=== PATIENT | female | born 1950 | race Caucasian/White ===

== ENCOUNTER → 2018-03-16 | Outpatient (CLI) | payer MEDICARE, MEDICAID ==
[2018-03-16 09:41] LABS: BASO % 0.8 % (0.0-1.0); EOS # 0.2 10^3/uL (0.0-0.50); EOS % 2.8 % (0.0-3.0); HEMATOCRIT 37.8 % (36.0-47.0); HEMOGLOBIN 12.8 g/dl (12.0-15.5); IMMATURE GRANULOCYTE % 0.8 % (0-3.0); LYMPH # 1.6 10^3/uL (1.5-4.5); LYMPH % 30.6 % (24.0-44.0); MEAN CORPUSCULAR HEMOGLOBIN 31.4 pg (27.0-33.0); MEAN CORPUSCULAR HGB CONC 33.9 g/dl (32.0-36.5); MEAN CORPUSCULAR VOLUME 92.9 fl (80.0-96.0); MONO # 0.6 10^3/uL (0.0-0.8); MONO % 11.3 % (0.0-5.0); NEUTROPHILS # 2.9 10^3/uL (1.8-7.7); NEUTROPHILS % 53.7 % (36.0-66.0); PLATELET COUNT, AUTOMATED 197 10^3/uL (150-450); RED BLOOD COUNT 4.07 10^6/uL (4.00-5.40); RED CELL DISTRIBUTION WIDTH 11.9 % (11.5-14.5); WHITE BLOOD COUNT 5.3 10^3/uL (4.0-10.0)
[2018-03-16 10:12] LABS: TOTAL 25(OH) VITAMIN D 40.6 NG/ML (30.0-100.0)
[2018-03-16 10:39] LABS: ALBUMIN 3.2 GM/DL (3.2-5.2); ALBUMIN/GLOBULIN RATIO 0.78 (1.00-1.93); ALKALINE PHOSPHATASE 125 U/L (45-117); ALT/SGPT 41 U/L (12-78); ANION GAP 4 MEQ/L (8-16); AST/SGOT 43 U/L (7-37); BILIRUBIN,TOTAL 0.5 MG/DL (0.2-1.0); BLOOD UREA NITROGEN 19 MG/DL (7-18); CALCIUM LEVEL 8.2 MG/DL (8.8-10.2); CARBON DIOXIDE LEVEL 28 MEQ/L (21-32); CHLORIDE LEVEL 107 MEQ/L (98-107); CHOLESTEROL LEVEL 171 MG/DL (<200); CHOLESTEROL RISK RATIO 2.478 (<5); CREATININE FOR GFR 0.96 MG/DL (0.55-1.30); FREE T4 0.84 NG/DL (0.76-1.46); GLOMERULAR FILTRATION RATE > 60.0 (>45); GLUCOSE, FASTING 87 MG/DL (70-100); HDL CHOLESTEROL 69 MG/DL (>40); LDL CHOLESTEROL 85.2 MG/DL (<100); NON-HDL-C 102 MG/DL; POTASSIUM SERUM 4.6 MEQ/L (3.5-5.1); SODIUM LEVEL 139 MEQ/L (136-145); TOTAL PROTEIN 7.3 GM/DL (6.4-8.2); TRIGLYCERIDES LEVEL 84 MG/DL (<150)
== END ==
LOC: M WUC 08:07
DX: J45.909 Unspecified asthma, uncomplicated (principal); Z13.220 Encounter for screening for lipoid disorders; Z13.29 Encounter for screening for other suspected endocrine disorder; Z13.21 Encounter for screening for nutritional disorder
CPT/HCPCS: 84443

== ENCOUNTER → 2018-04-06 | Outpatient (REF) | payer MEDICARE, MEDICAID | LOC: M LAB REF 11:34 | DX: N39.0 Urinary tract infection, site not specified (principal) | CPT/HCPCS: 87186 ==

== ENCOUNTER → 2018-05-24 | Outpatient (REF) | payer MEDICARE, MEDICAID | LOC: M SFHCSACK 14:42 | DX: R35.8 Other polyuria (principal) | CPT/HCPCS: 87186 ==

== ENCOUNTER → 2018-06-29 | Outpatient (CLI) | payer MEDICARE, MEDICAID ==
[2018-06-29 13:14] LABS: BASO % 0.5 % (0.0-1.0); EOS # 0.1 10^3/uL (0.0-0.50); EOS % 2.4 % (0.0-3.0); HEMATOCRIT 39.2 % (36.0-47.0); HEMOGLOBIN 13.4 g/dl (12.0-15.5); IMMATURE GRANULOCYTE % 1.1 % (0-3.0); LYMPH % 36.8 % (24.0-44.0); MEAN CORPUSCULAR HEMOGLOBIN 32.8 pg (27.0-33.0); MEAN CORPUSCULAR HGB CONC 34.2 g/dl (32.0-36.5); MEAN CORPUSCULAR VOLUME 96.1 fl (80.0-96.0); MONO # 0.5 10^3/uL (0.0-0.8); MONO % 9.7 % (0.0-5.0); NEUTROPHILS # 2.7 10^3/uL (1.8-7.7); NEUTROPHILS % 49.5 % (36.0-66.0); PLATELET COUNT, AUTOMATED 180 10^3/uL (150-450); RED BLOOD COUNT 4.08 10^6/uL (4.00-5.40); RED CELL DISTRIBUTION WIDTH 11.9 % (11.5-14.5); WHITE BLOOD COUNT 5.5 10^3/uL (4.0-10.0)
[2018-06-29 13:32] LABS: ERYTHROCYTE SEDIMENTATION RATE 26 mm/hr (0-30)
[2018-06-29 14:22] LABS: ALBUMIN 3.1 GM/DL (3.2-5.2); ALBUMIN/GLOBULIN RATIO 0.72 (1.00-1.93); ALKALINE PHOSPHATASE 109 U/L (45-117); ALT/SGPT 29 U/L (12-78); ANION GAP 9 MEQ/L (8-16); AST/SGOT 28 U/L (7-37); BILIRUBIN,TOTAL 0.6 MG/DL (0.2-1.0); BLOOD UREA NITROGEN 19 MG/DL (7-18); CALCIUM LEVEL 8.1 MG/DL (8.8-10.2); CARBON DIOXIDE LEVEL 25 MEQ/L (21-32); CHLORIDE LEVEL 105 MEQ/L (98-107); CREATININE FOR GFR 0.99 MG/DL (0.55-1.30); GLOMERULAR FILTRATION RATE 59.2 (>45); GLUCOSE, FASTING 69 MG/DL (70-100); POTASSIUM SERUM 4.2 MEQ/L (3.5-5.1); RHEUMATOID FACTOR QUANT < 10.0 IU/ML (<15.0); SODIUM LEVEL 139 MEQ/L (136-145); TOTAL PROTEIN 7.4 GM/DL (6.4-8.2)
[2018-07-03 14:17] LABS: ANTINUCLEAR ANTIBODIES DIRECT Negative (Negative); TOPIRAMATE LEVEL 13.1 ug/mL (2.0-25.0)
== END ==
LOC: M WUC 09:22
DX: R56.9 Unspecified convulsions (principal); Z51.81 Encounter for therapeutic drug level monitoring; Z79.899 Other long term (current) drug therapy
CPT/HCPCS: 84443

== ENCOUNTER → 2018-08-26 | Outpatient (CLI) | payer MEDICARE, MEDICAID ==
[2018-08-26 13:12] LABS: BASO # 0.1 10^3/uL (0.0-0.2); BASO % 0.8 % (0.0-1.0); EOS # 0.1 10^3/uL (0.0-0.50); EOS % 2.1 % (0.0-3.0); HEMATOCRIT 38.2 % (36.0-47.0); HEMOGLOBIN 12.9 g/dl (12.0-15.5); IMMATURE GRANULOCYTE % 0.6 % (0-3.0); LYMPH # 2.4 10^3/uL (1.5-4.5); MEAN CORPUSCULAR HEMOGLOBIN 32.5 pg (27.0-33.0); MEAN CORPUSCULAR HGB CONC 33.8 g/dl (32.0-36.5); MEAN CORPUSCULAR VOLUME 96.2 fl (80.0-96.0); MONO # 0.5 10^3/uL (0.0-0.8); MONO % 8.3 % (0.0-5.0); NEUTROPHILS # 3.1 10^3/uL (1.8-7.7); NEUTROPHILS % 50.2 % (36.0-66.0); PLATELET COUNT, AUTOMATED 184 10^3/uL (150-450); RED BLOOD COUNT 3.97 10^6/uL (4.00-5.40); RED CELL DISTRIBUTION WIDTH 11.9 % (11.5-14.5); WHITE BLOOD COUNT 6.3 10^3/uL (4.0-10.0)
[2018-08-26 13:22] LABS: ALBUMIN 3.4 GM/DL (3.2-5.2); ALBUMIN/GLOBULIN RATIO 0.92 (1.00-1.93); ALKALINE PHOSPHATASE 120 U/L (45-117); ALT/SGPT 31 U/L (12-78); ANION GAP 5 MEQ/L (8-16); AST/SGOT 34 U/L (7-37); BILIRUBIN,TOTAL 0.7 MG/DL (0.2-1.0); BLOOD UREA NITROGEN 21 MG/DL (7-18); CALCIUM LEVEL 8.3 MG/DL (8.8-10.2); CARBON DIOXIDE LEVEL 28 MEQ/L (21-32); CHLORIDE LEVEL 107 MEQ/L (98-107); CHOLESTEROL LEVEL 165 MG/DL (<200); CHOLESTEROL RISK RATIO 2.462 (<5); CREATININE FOR GFR 0.92 MG/DL (0.55-1.30); GLOMERULAR FILTRATION RATE > 60.0 (>39); GLUCOSE, FASTING 96 MG/DL (70-100); HDL CHOLESTEROL 67 MG/DL (>40); LDL CHOLESTEROL 76 MG/DL (<100); NON-HDL-C 98 MG/DL; POTASSIUM SERUM 4.5 MEQ/L (3.5-5.1); SODIUM LEVEL 140 MEQ/L (136-145); TOTAL PROTEIN 7.1 GM/DL (6.4-8.2); TRIGLYCERIDES LEVEL 111 MG/DL (<150)
[2018-08-28 10:24] LABS: TOTAL 25(OH) VITAMIN D 45.9 NG/ML (30.0-100.0)
== END ==
LOC: M WUC 11:21
DX: J45.909 Unspecified asthma, uncomplicated (principal); Z13.21 Encounter for screening for nutritional disorder; Z13.220 Encounter for screening for lipoid disorders
CPT/HCPCS: 80053

== ENCOUNTER 2018-09-18 14:17 | Emergency (ER) | payer MEDICARE, MEDICAID ==
[2018-09-18 17:22] LABS: BASO % 0.6 % (0.0-1.0); EOS # 0.1 10^3/uL (0.0-0.50); EOS % 1.8 % (0.0-3.0); HEMATOCRIT 40.1 % (36.0-47.0); HEMOGLOBIN 13.5 g/dl (12.0-15.5); IMMATURE GRANULOCYTE % 0.4 % (0-3.0); LYMPH # 2.6 10^3/uL (1.5-4.5); LYMPH % 38.7 % (24.0-44.0); MEAN CORPUSCULAR HGB CONC 33.7 g/dl (32.0-36.5); MONO # 0.6 10^3/uL (0.0-0.8); MONO % 8.4 % (0.0-5.0); NEUTROPHILS # 3.4 10^3/uL (1.8-7.7); NEUTROPHILS % 50.1 % (36.0-66.0); PLATELET COUNT, AUTOMATED 167 10^3/uL (150-450); RED BLOOD COUNT 4.22 10^6/uL (4.00-5.40); RED CELL DISTRIBUTION WIDTH 11.9 % (11.5-14.5); WHITE BLOOD COUNT 6.7 10^3/uL (4.0-10.0)
[2018-09-18 17:38] LABS: INR 1.05; PROTHROMBIN TIME 13.9 SECONDS (12.1-14.4)
[2018-09-18 17:39] LABS: PARTIAL THROMBOPLASTIN TIME 28.3 SECONDS (25.4-37.6)
[2018-09-18 17:43] LABS: LACTIC ACID SEPSIS PROTOCOL 1.3 MMOL/L (0.4-2.0)
[2018-09-18 17:50] LABS: ALBUMIN 3.5 GM/DL (3.2-5.2); ALBUMIN/GLOBULIN RATIO 0.85 (1.00-1.93); ALKALINE PHOSPHATASE 151 U/L (45-117); ALT/SGPT 36 U/L (12-78); ANION GAP 5 MEQ/L (8-16); AST/SGOT 34 U/L (7-37); BILIRUBIN,DIRECT 0.1 MG/DL (0.0-0.2); BILIRUBIN,TOTAL 0.3 MG/DL (0.2-1.0); BLOOD UREA NITROGEN 21 MG/DL (7-18); C REACTIVE PROTEIN QUANTITATIV < 0.30 MG/DL (0.00-0.30); CALCIUM LEVEL 8.6 MG/DL (8.8-10.2); CARBON DIOXIDE LEVEL 28 MEQ/L (21-32); CHLORIDE LEVEL 106 MEQ/L (98-107); CREATININE FOR GFR 1.12 MG/DL (0.55-1.30); GLOMERULAR FILTRATION RATE 51.2 (>39); GLUCOSE, FASTING 119 MG/DL (70-100); SODIUM LEVEL 139 MEQ/L (136-145); TOTAL PROTEIN 7.6 GM/DL (6.4-8.2)
[2018-09-18 18:37] LABS: ERYTHROCYTE SEDIMENTATION RATE 20 mm/hr (0-30)
== END 2018-09-18 19:37 | disposition home or self-care (01) ==
LOC: M ED 14:17
DX: I73.9 Peripheral vascular disease, unspecified (principal); I50.9 Heart failure, unspecified; R56.9 Unspecified convulsions; Z79.899 Other long term (current) drug therapy
CPT/HCPCS: 73590

== ENCOUNTER → 2018-11-30 | Outpatient (CLI) | payer MEDICARE, MEDICAID ==
[~2018-11-30] MED LIST: ALPR0.25 PO; BREO1INH PO; CARB1CAP2 PO; CLOR7.5T3 PO; FOSA70TA PO; LASI20TA3 PO; MIRA3350 PO; MULTCAP PO; POTA1TAB14 PO; TOPA200T7 PO; VITA200038 PO; VITAD1000T PO; ZOLO25TA PO; ZOLO50TA PO
--- NOTE | 2018-11-30 13:40 | REP ---
BILATERAL LOWER EXTREMITY DUPLEX DOPPLER VENOUS ULTRASOUND WITH EVALUATION FOR VENOUS REFLUX: Real-time compression and duplex Doppler interrogation of the bilateral lower extremity deep venous systems is performed. Bilaterally, common femoral, superficial femoral, and popliteal veins are fully compressible with transducer pressure and demonstrate normal spontaneous and phasic flow without evidence of deep venous thrombosis. Evaluation for venous reflux is performed with the bed tipped only coming out in the standing position. On the right there is reflux seen throughout the deep veins including common femoral, superficial femoral, and popliteal veins. There is an anterior accessory greater saphenous vein present without evidence of reflux. There is no reflux in any portion of the greater saphenous vein, which measures 4 mm at the saphenofemoral junction and in the mid thigh, and 3 mm at the level of the knee. There is no reflux in the lesser saphenous vein which measures 2 mm in diameter. Evaluation for venous reflux in the left lower extremity demonstrates reflux throughout the deep venous system including the common femoral, superficial femoral, and popliteal veins. There is an anterior accessory greater saphenous vein present without reflux. There is reflux in the greater saphenous vein at the saphenous vein at the saphenofemoral junction with a duration of 1.15 seconds, AP diameter 4 mm, also at the mid thigh level with a duration of 5.7 seconds and AP diameter of 4 mm, as well as the knee with a duration of 3.8 seconds, AP diameter 4 mm. There is no reflux in the lesser saphenous vein which measures 2 mm. Electronically Signed by Ryan Rao MD 11/30/2018 05:31 P
== END ==
LOC: M RAD 11:18
PROVIDERS: ATTEND Surgery Vascular Surgery
DX: I73.9 Peripheral vascular disease, unspecified (principal); I87.2 Venous insufficiency (chronic) (peripheral)

== ENCOUNTER 2018-12-21 08:22 | Day surgery (SDC) | payer MEDICARE, MEDICAID ==
[~2018-12-21] VITALS: Ht 162.6 cm; Wt 69.4 kg
[~2018-12-21 08:22] MED LIST changes: +COLA100C5 PO; +HYDR1CRE AD; +NS 1,000 ML IV ONE; +PROAAER10 INH
[2018-12-21] MEDS ORDERED: PROPOFOL 200 MG/20 ML VIAL As Ordered ONE (09:22)
--- NOTE | 2018-12-21 09:48 | ROOR ---
Patient Name: Natalia Hernandez Procedure Date: 12/21/2018 9:21 AM Date of : 1950 Age: 68 Room: [facility] Gender: Female Note Status: Finalized Procedure: Colonoscopy Indications: Positive Cologuard test Providers: Madi Larson Jr, MD Referring MD: ANIRUDH Gilliam Pa-c Requesting Provider: Medicines: Propofol per Anesthesia Complications: No immediate complications. Procedure: Pre-Anesthesia Assessment: - Prior to the procedure, a History and Physical was performed, and patient medications and allergies were reviewed. The patient is competent. The risks and benefits of the procedure and the sedation options and risks were discussed with the patient. All questions were answered and informed consent was obtained. Patient identification and proposed procedure were verified by the physician and the nurse in the pre-procedure area and in the procedure room. Mental Status Examination: alert and oriented. Airway Examination: normal oropharyngeal airway and neck mobility. Respiratory Examination: clear to auscultation. CV Examination: normal. ASA Grade Assessment: III - A patient with severe systemic disease. After reviewing the risks and benefits, the patient was deemed in satisfactory condition to undergo the procedure. The anesthesia plan was to use moderate sedation / analgesia (conscious sedation). Immediately prior to administration of medications, the patient was re-assessed for adequacy to receive sedatives. The heart rate, respiratory rate, oxygen saturations, blood pressure, adequacy of pulmonary ventilation, and response to care were monitored throughout the procedure. The physical status of the patient was re-assessed after the procedure. The Colonoscope was introduced through the anus and advanced to the cecum, identified by appendiceal orifice and ileocecal valve. The colonoscopy was performed without difficulty. The patient tolerated the procedure well. The quality of the bowel preparation was adequate. Findings: A small polyp was found in the cecum. The polyp was removed with a hot snare. Resection and retrieval were complete. A medium polyp was found in the cecum. The polyp was sessile. The polyp was removed with a hot snare. Resection and retrieval were complete. To prevent bleeding post-intervention, one hemostatic clip was successfully placed. There was no bleeding at the end of the procedure. A small polyp was found in the rectum. The polyp was pedunculated. The polyp was removed with a hot snare. Resection and retrieval were complete. The recto-sigmoid colon, sigmoid colon, descending colon, transverse colon, ascending colon, appendiceal orifice and ileocecal valve appeared normal. Impression: - One small polyp in the cecum, removed with a hot snare. Resected and retrieved. - One medium polyp in the cecum, removed with a hot snare. Resected and retrieved. Clip was placed. - One small polyp in the rectum, removed with a hot snare. Resected and retrieved. - The recto-sigmoid colon, sigmoid colon, descending colon, transverse colon, ascending colon, appendiceal orifice and ileocecal valve are normal. Recommendation: - Discharge patient to home (ambulatory). - Repeat colonoscopy in 3 - 5 years for surveillance based on pathology results. Madi Larson MD Madi Larson Jr, MD 12/21/2018 9:47:47 AM This report has been signed electronically. Number of Addenda: 0 Note Initiated On: 12/21/2018 9:21 AM Estimated Blood Loss: Estimated blood loss: none.
[2018-12-21 10:33] VITALS: BP 119/65
== END 2018-12-21 10:35 | disposition home or self-care (01) ==
LOC: M OPP 08:22
PROVIDERS: ATTEND Surgery
DX: R19.5 Other fecal abnormalities (principal); D12.0 Benign neoplasm of cecum; K62.1 Rectal polyp; Z79.899 Other long term (current) drug therapy

== ENCOUNTER → 2018-12-27 | Outpatient (REF) | payer MEDICARE, MEDICAID ==
[~2018-12-27] MED LIST changes: -NS 1,000 ML IV ONE
== END ==
LOC: M SFHCSACK 09:31
PROVIDERS: ATTEND Physician Assistant
DX: G40.901 Epilepsy, unspecified, not intractable, with status epilepticus (principal); E55.9 Vitamin D deficiency, unspecified; Z53.8 Procedure and treatment not carried out for other reasons

== ENCOUNTER → 2019-02-23 | Outpatient (CLI) | payer MEDICARE, MEDICAID ==
[~2019-02-23] MED LIST changes: -CARB1CAP2 PO; +CARB200C4 PO; -HYDR1CRE AD; +HYDR1CRE30 AD
[2019-02-23 13:39] LABS: BASO # 0.1 10^3/uL (0.0-0.2); BASO % 0.8 % (0.0-1.0); EOS # 0.2 10^3/uL (0.0-0.50); EOS % 2.8 % (0.0-3.0); HEMATOCRIT 39.9 % (36.0-47.0); HEMOGLOBIN 13.2 g/dl (12.0-15.5); LYMPH # 2.2 10^3/uL (1.5-4.5); LYMPH % 34.2 % (24.0-44.0); MEAN CORPUSCULAR HEMOGLOBIN 31.4 pg (27.0-33.0); MEAN CORPUSCULAR HGB CONC 33.1 g/dl (32.0-36.5); MEAN CORPUSCULAR VOLUME 94.8 fl (80.0-96.0); MONO # 0.7 10^3/uL (0.0-0.8); MONO % 10.9 % (0.0-5.0); NEUTROPHILS # 3.2 10^3/uL (1.8-7.7); NEUTROPHILS % 50.5 % (36.0-66.0); PLATELET COUNT, AUTOMATED 187 10^3/uL (150-450); RED BLOOD COUNT 4.21 10^6/uL (4.00-5.40); WHITE BLOOD COUNT 6.3 10^3/uL (4.0-10.0)
[2019-02-23 13:40] LABS: ALBUMIN 3.5 GM/DL (3.2-5.2); ALT/SGPT 28 U/L (12-78); BILIRUBIN,TOTAL 0.7 MG/DL (0.2-1.0); BLOOD UREA NITROGEN 20 MG/DL (7-18); CALCIUM LEVEL 8.3 MG/DL (8.8-10.2); CARBON DIOXIDE LEVEL 26 MEQ/L (21-32); CHLORIDE LEVEL 107 MEQ/L (98-107); CREATININE FOR GFR 0.96 MG/DL (0.55-1.30); GLOMERULAR FILTRATION RATE > 60.0 (>39); GLUCOSE, FASTING 88 MG/DL (70-100); POTASSIUM SERUM 4.2 MEQ/L (3.5-5.1); SODIUM LEVEL 137 MEQ/L (136-145); TOTAL PROTEIN 7.3 GM/DL (6.4-8.2)
== END ==
LOC: M WUC 08:49
PROVIDERS: ATTEND Physician Assistant
DX: G40.901 Epilepsy, unspecified, not intractable, with status epilepticus (principal); E55.9 Vitamin D deficiency, unspecified

== ENCOUNTER → 2019-02-23 | Outpatient (CLI) | payer MEDICARE, MEDICAID ==
[2019-02-23 13:38] LABS: CARBAMAZEPINE (TEGRETOL) LEVEL 7.3 UG/ML (4.0-10.0)
[2019-02-23 13:40] LABS: BASO # 0.1 10^3/uL (0.0-0.2); EOS # 0.2 10^3/uL (0.0-0.50); EOS % 3.2 % (0.0-3.0); HEMATOCRIT 40.1 % (36.0-47.0); HEMOGLOBIN 13.3 g/dl (12.0-15.5); LYMPH # 2.1 10^3/uL (1.5-4.5); LYMPH % 33.7 % (24.0-44.0); MEAN CORPUSCULAR HEMOGLOBIN 31.5 pg (27.0-33.0); MEAN CORPUSCULAR HGB CONC 33.2 g/dl (32.0-36.5); MONO # 0.6 10^3/uL (0.0-0.8); NEUTROPHILS # 3.2 10^3/uL (1.8-7.7); NEUTROPHILS % 51.3 % (36.0-66.0); PLATELET COUNT, AUTOMATED 183 10^3/uL (150-450); RED BLOOD COUNT 4.22 10^6/uL (4.00-5.40); WHITE BLOOD COUNT 6.2 10^3/uL (4.0-10.0)
[2019-02-27 14:16] LABS: TOPIRAMATE LEVEL 9.6 ug/mL (2.0-25.0)
== END ==
LOC: M WUC 08:43
PROVIDERS: ATTEND Physician Assistant Medical
DX: G40.901 Epilepsy, unspecified, not intractable, with status epilepticus (principal); Z51.81 Encounter for therapeutic drug level monitoring; Z79.01 Long term (current) use of anticoagulants; E55.9 Vitamin D deficiency, unspecified

== ENCOUNTER → 2019-02-27 | Outpatient (REF) | payer MEDICARE, MEDICAID ==
[2019-03-04 00:10] LABS: HEPATITIS C QUANTITATION 4288840 IU/mL (.); HEPATITIS C VIRUS GENOTYPE 1a (.)
== END ==
LOC: M SFHCADAM 10:39
PROVIDERS: ATTEND Family Medicine
DX: Z86.19 Personal history of other infectious and parasitic diseases (principal)
CPT/HCPCS: 81596; 86803; 87521; 87522; 87902; G0463

== ENCOUNTER → 2019-04-03 | Outpatient (REF) | payer MEDICARE, MEDICAID ==
[2019-04-03 12:16] LABS: INR 1.06; PROTHROMBIN TIME 13.9 SECONDS (12.1-14.4)
[2019-04-04 08:42] LABS: HEPATITIS A IgG TOTAL Negative (Negative); HEPATITIS B CORE ANTIBODY IGG Positive (Negative)
[2019-04-04 10:28] LABS: HEPATITIS B SURFACE ANTIBODY POSITIVE (POSITIVE); HEPATITIS B SURFACE ANTIGEN NEGATIVE (NEGATIVE)
== END ==
LOC: M SFHCPLAZ 09:59
PROVIDERS: ATTEND Internal Medicine Infectious Disease
DX: B18.2 Chronic viral hepatitis C (principal)
CPT/HCPCS: 36415; 82105; 85610; 86704; 86706; 86708; 87340; G0463

== ENCOUNTER → 2019-04-17 | Outpatient (CLI) | payer MEDICARE, MEDICAID ==
--- NOTE | 2019-04-17 10:15 | REP ---
Clinical: Chronic hepatitis C. Technique: Real time lucero scale ultrasound examination using curved array transducer. Findings: Examination is severely limited and essentially nondiagnostic due to body habitus and associated technical factors. Liver, pancreas, gallbladder, and biliary system are incompletely evaluated and pathology cannot be excluded. Visualized portions of the right kidney without obvious hydronephrosis. Impression: Severely limited right upper quadrant ultrasound. Consider CT evaluation if necessary. Electronically Signed by Mauri Coronel MD 04/17/2019 10:06 A
== END ==
LOC: M RAD 08:51
PROVIDERS: ATTEND Internal Medicine Infectious Disease
DX: B18.2 Chronic viral hepatitis C (principal)

== ENCOUNTER → 2019-08-23 | Outpatient (REF) | payer MEDICARE, MEDICAID ==
[~2019-08-23] MED LIST changes: +CHOL100029 PO; -VITAD1000T PO
[2019-08-23 13:28] LABS: ALBUMIN 3.4 GM/DL (3.2-5.2); BASO % 0.5 % (0.0-1.0); BILIRUBIN,TOTAL 0.4 MG/DL (0.2-1.0); CALCIUM LEVEL 9.2 MG/DL (8.8-10.2); EOS # 0.1 10^3/uL (0.0-0.5); EOS % 1.9 % (0.0-3.0); GLOMERULAR FILTRATION RATE 58.2 (>39); HEMATOCRIT 39.3 % (36.0-47.0); HEMOGLOBIN 13.3 g/dl (12.0-15.5); LYMPH # 2.7 10^3/uL (1.5-5.0); LYMPH % 41.2 % (24.0-44.0); MEAN CORPUSCULAR HEMOGLOBIN 31.9 pg (27.0-33.0); MEAN CORPUSCULAR HGB CONC 33.8 g/dl (32.0-36.5); MEAN CORPUSCULAR VOLUME 94.2 fl (80.0-96.0); MONO # 0.8 10^3/uL (0.0-0.8); MONO % 12.1 % (0.0-5.0); NEUTROPHILS # 2.8 10^3/uL (1.5-8.5); NEUTROPHILS % 43.8 % (36.0-66.0); PLATELET COUNT, AUTOMATED 174 10^3/uL (150-450); POTASSIUM SERUM 4.2 MEQ/L (3.5-5.1); RED BLOOD COUNT 4.17 10^6/uL (4.00-5.40); TOTAL PROTEIN 7.8 GM/DL (6.4-8.2); WHITE BLOOD COUNT 6.4 10^3/uL (4.0-10.0)
[2019-08-27 14:19] LABS: HEPATITIS C QUANTITATION HCV Not Detected IU/mL (.)
== END ==
LOC: M SFHCPLAZ 11:06
PROVIDERS: ATTEND Internal Medicine Infectious Disease
DX: B18.2 Chronic viral hepatitis C (principal); Z23 Encounter for immunization
CPT/HCPCS: 36415; 80053; 85025; 87522; 90471; 90632; G0463

== ENCOUNTER → 2019-09-29 | Outpatient (CLI) | payer MEDICARE, MEDICAID ==
[2019-09-29 13:32] LABS: ALBUMIN 3.4 GM/DL (3.2-5.2); BILIRUBIN,TOTAL 0.4 MG/DL (0.2-1.0); CALCIUM LEVEL 8.5 MG/DL (8.8-10.2); CHOLESTEROL RISK RATIO 3.044 (<5); CREATININE FOR GFR 1.05 MG/DL (0.55-1.30); FREE T4 0.64 NG/DL (0.76-1.46); POTASSIUM SERUM 4.3 MEQ/L (3.5-5.1); THYROID STIMULATING HORMONE 1.49 uIU/ML (0.358-3.740); TOTAL PROTEIN 7.6 GM/DL (6.4-8.2)
[2019-09-29 13:38] LABS: BASO % 0.6 % (0.0-1.0); EOS # 0.1 10^3/uL (0.0-0.5); EOS % 2.1 % (0.0-3.0); HEMATOCRIT 40.3 % (36.0-47.0); HEMOGLOBIN 13.2 g/dl (12.0-15.5); LYMPH # 2.4 10^3/uL (1.5-5.0); LYMPH % 35.4 % (24.0-44.0); MEAN CORPUSCULAR HEMOGLOBIN 31.4 pg (27.0-33.0); MEAN CORPUSCULAR HGB CONC 32.8 g/dl (32.0-36.5); MONO # 0.6 10^3/uL (0.0-0.8); MONO % 9.2 % (0.0-5.0); NEUTROPHILS # 3.5 10^3/uL (1.5-8.5); PLATELET COUNT, AUTOMATED 173 10^3/uL (150-450); WHITE BLOOD COUNT 6.7 10^3/uL (4.0-10.0)
[2019-10-01 12:49] LABS: TOTAL 25(OH) VITAMIN D 39.8 NG/ML (30.0-100.0)
== END ==
LOC: M WUC 10:04
PROVIDERS: ATTEND Physician Assistant
DX: G40.901 Epilepsy, unspecified, not intractable, with status epilepticus (principal); E55.9 Vitamin D deficiency, unspecified; Z13.220 Encounter for screening for lipoid disorders; Z13.29 Encounter for screening for other suspected endocrine disorder; Z51.81 Encounter for therapeutic drug level monitoring; Z79.899 Other long term (current) drug therapy

== ENCOUNTER → 2019-09-29 | Outpatient (CLI) | payer MEDICARE, MEDICAID ==
[2019-10-03 00:06] LABS: TOPIRAMATE LEVEL 7.2 ug/mL (2.0-25.0)
== END ==
LOC: M WUC 10:09
PROVIDERS: ATTEND Physician Assistant Medical
DX: R56.9 Unspecified convulsions (principal); Z51.81 Encounter for therapeutic drug level monitoring

== ENCOUNTER → 2019-10-04 | Outpatient (REF) | payer MEDICARE, MEDICAID ==
[2019-10-04 14:19] LABS: ALBUMIN 3.4 GM/DL (3.2-5.2); BILIRUBIN,DIRECT 0.2 MG/DL (0.0-0.2); BILIRUBIN,TOTAL 0.4 MG/DL (0.2-1.0); TOTAL PROTEIN 7.7 GM/DL (6.4-8.2)
[2019-10-08 14:07] LABS: HEPATITIS C QUANTITATION HCV Not Detected IU/mL (.)
== END ==
LOC: M SFHCPLAZ 11:39
PROVIDERS: ATTEND Internal Medicine Infectious Disease
DX: B18.2 Chronic viral hepatitis C (principal)
CPT/HCPCS: 36415; 80076; 87522; G0463

== ENCOUNTER → 2020-02-14 | Outpatient (REF) | payer MEDICARE, MEDICAID ==
[2020-02-14 14:17] LABS: BASO % 0.3 % (0.0-1.0); EOS # 0.1 10^3/uL (0.0-0.5); EOS % 1.3 % (0.0-3.0); HEMATOCRIT 38.7 % (36.0-47.0); HEMOGLOBIN 12.8 g/dl (12.0-15.5); LYMPH # 2.7 10^3/uL (1.5-5.0); LYMPH % 38.8 % (24.0-44.0); MEAN CORPUSCULAR HEMOGLOBIN 30.8 pg (27.0-33.0); MEAN CORPUSCULAR HGB CONC 33.1 g/dl (32.0-36.5); MONO # 0.8 10^3/uL (0.0-0.8); MONO % 10.7 % (0.0-5.0); NEUTROPHILS # 3.4 10^3/uL (1.5-8.5); NEUTROPHILS % 48.2 % (36.0-66.0); PLATELET COUNT, AUTOMATED 179 10^3/uL (150-450); RED BLOOD COUNT 4.16 10^6/uL (4.00-5.40)
[2020-02-14 14:18] LABS: ALBUMIN 3.4 GM/DL (3.2-5.2); ALT/SGPT 20 U/L (12-78); BILIRUBIN,DIRECT < 0.1 MG/DL (0.0-0.2); BILIRUBIN,TOTAL 0.4 MG/DL (0.2-1.0); TOTAL PROTEIN 7.5 GM/DL (6.4-8.2)
[2020-02-19 06:36] LABS: HEPATITIS C QUANTITATION HCV Not Detected IU/mL (.)
== END ==
LOC: M SFHCPLAZ 11:09
PROVIDERS: ATTEND Internal Medicine Infectious Disease
DX: B18.2 Chronic viral hepatitis C (principal); Z23 Encounter for immunization
CPT/HCPCS: 36415; 80076; 82105; 85025; 87522; 90471; 90632; G0463

== ENCOUNTER → 2020-02-28 | Outpatient (CLI) | payer MEDICARE, MEDICAID ==
[2020-03-04 00:06] LABS: TOPIRAMATE LEVEL 7.5 ug/mL (2.0-25.0)
== END ==
LOC: M WUC 09:32
PROVIDERS: ATTEND Physician Assistant Medical
DX: G40.89 Other seizures (principal)

== ENCOUNTER → 2020-05-28 | Outpatient (REF) | payer MEDICARE, MEDICAID ==
[2020-06-26 22:44] LABS: BASO % 0.5 % (0.0-1.0); EOS # 0.1 10^3/uL (0.0-0.5); EOS % 2.4 % (0.0-3.0); HEMATOCRIT 39.9 % (36.0-47.0); HEMOGLOBIN 13.1 g/dl (12.0-15.5); LYMPH # 2.3 10^3/uL (1.5-5.0); LYMPH % 39.9 % (24.0-44.0); MEAN CORPUSCULAR HEMOGLOBIN 31.3 pg (27.0-33.0); MEAN CORPUSCULAR HGB CONC 32.8 g/dl (32.0-36.5); MEAN CORPUSCULAR VOLUME 95.5 fl (80.0-96.0); MONO # 0.5 10^3/uL (0.0-0.8); MONO % 8.9 % (0.0-5.0); NEUTROPHILS # 2.8 10^3/uL (1.5-8.5); NEUTROPHILS % 47.6 % (36.0-66.0); PLATELET COUNT, AUTOMATED 181 10^3/uL (150-450); RED BLOOD COUNT 4.18 10^6/uL (4.00-5.40); WHITE BLOOD COUNT 5.8 10^3/uL (4.0-10.0)
[2020-07-12 12:42] LABS: ALBUMIN 3.6 GM/DL (3.2-5.2); ALT/SGPT 19 U/L (12-78); BILIRUBIN,TOTAL 0.4 MG/DL (0.2-1.0); BLOOD UREA NITROGEN 15 MG/DL (7-18); CALCIUM LEVEL 8.6 MG/DL (8.8-10.2); CARBON DIOXIDE LEVEL 27 MEQ/L (21-32); CHLORIDE LEVEL 106 MEQ/L (98-107); CHOLESTEROL LEVEL 206 MG/DL (<200); CHOLESTEROL RISK RATIO 3.678 (<5); CREATININE FOR GFR 0.92 MG/DL (0.55-1.30); FREE T4 0.69 NG/DL (0.76-1.46); GLOMERULAR FILTRATION RATE > 60.0 (>39); GLUCOSE, FASTING 91 MG/DL (70-100); HDL CHOLESTEROL 56 MG/DL (>40); LDL CHOLESTEROL 121 MG/DL (<100); NON-HDL-C 150 MG/DL; POTASSIUM SERUM 4.2 MEQ/L (3.5-5.1); SODIUM LEVEL 138 MEQ/L (136-145); TOTAL 25(OH) VITAMIN D 35.5 NG/ML (30.0-100.0); TOTAL PROTEIN 7.2 GM/DL (6.4-8.2); TRIGLYCERIDES LEVEL 145 MG/DL (<150)
== END ==
LOC: M SFHCSACK 09:06 → M WUC 09:07
PROVIDERS: ATTEND Physician Assistant
DX: E78.2 Mixed hyperlipidemia (principal); Z13.29 Encounter for screening for other suspected endocrine disorder; E55.9 Vitamin D deficiency, unspecified; G40.901 Epilepsy, unspecified, not intractable, with status epilepticus; Z79.899 Other long term (current) drug therapy

== ENCOUNTER → 2020-09-27 | Outpatient (CLI) | payer MEDICARE, MEDICAID | LOC: M LABSMTC 12:44 | PROVIDERS: ATTEND Family Medicine | DX: Z20.828 Contact with and (suspected) exposure to other viral communicable diseases (principal) ==

== ENCOUNTER → 2020-11-05 | Outpatient (CLI) | payer MEDICARE, MEDICAID ==
[2020-11-05 13:26] LABS: BASO # 0.1 10^3/uL (0.0-0.2); BASO % 0.8 % (0.0-1.0); EOS # 0.2 10^3/uL (0.0-0.5); EOS % 2.6 % (0.0-3.0); HEMATOCRIT 39.7 % (36.0-47.0); HEMOGLOBIN 13.1 g/dl (12.0-15.5); LYMPH % 32.2 % (24.0-44.0); MEAN CORPUSCULAR VOLUME 94.1 fl (80.0-96.0); MONO # 0.7 10^3/uL (0.0-0.8); MONO % 11.1 % (0.0-5.0); NEUTROPHILS # 3.3 10^3/uL (1.5-8.5); NEUTROPHILS % 52.7 % (36.0-66.0); PLATELET COUNT, AUTOMATED 189 10^3/uL (150-450); RED BLOOD COUNT 4.22 10^6/uL (4.00-5.40); WHITE BLOOD COUNT 6.2 10^3/uL (4.0-10.0)
== END ==
LOC: M WUC 09:08
PROVIDERS: ATTEND Physician Assistant Medical
DX: G40.909 Epilepsy, unspecified, not intractable, without status epilepticus (principal)

== ENCOUNTER → 2021-01-13 | Outpatient (CLI) | payer MEDICARE, MEDICAID ==
[2021-01-13 12:32] LABS: BASO % 0.7 % (0.0-1.0); EOS # 0.2 10^3/uL (0.0-0.5); EOS % 2.6 % (0.0-3.0); HEMATOCRIT 39.6 % (36.0-47.0); HEMOGLOBIN 13.1 g/dl (12.0-15.5); LYMPH # 2.1 10^3/uL (1.5-5.0); LYMPH % 36.1 % (24.0-44.0); MEAN CORPUSCULAR HEMOGLOBIN 31.3 pg (27.0-33.0); MEAN CORPUSCULAR HGB CONC 33.1 g/dl (32.0-36.5); MEAN CORPUSCULAR VOLUME 94.7 fl (80.0-96.0); MONO # 0.6 10^3/uL (0.0-0.8); MONO % 10.3 % (2.0-8.0); NEUTROPHILS # 2.8 10^3/uL (1.5-8.5); NEUTROPHILS % 49.6 % (36.0-66.0); PLATELET COUNT, AUTOMATED 179 10^3/uL (150-450); RED BLOOD COUNT 4.18 10^6/uL (4.00-5.40); WHITE BLOOD COUNT 5.7 10^3/uL (4.0-10.0)
[2021-01-13 13:05] LABS: ALBUMIN 3.8 GM/DL (3.2-5.2); ALT/SGPT 21 U/L (12-78); BILIRUBIN,TOTAL 0.3 MG/DL (0.2-1.0); BLOOD UREA NITROGEN 21 MG/DL (7-18); CALCIUM LEVEL 8.3 MG/DL (8.8-10.2); CARBAMAZEPINE (TEGRETOL) LEVEL 6.2 UG/ML (4.0-10.0); CARBON DIOXIDE LEVEL 25 MEQ/L (21-32); CHLORIDE LEVEL 104 MEQ/L (98-107); CREATININE FOR GFR 0.94 MG/DL (0.55-1.30); GLOMERULAR FILTRATION RATE > 60.0 (>39); GLUCOSE, FASTING 80 MG/DL (70-100); POTASSIUM SERUM 3.9 MEQ/L (3.5-5.1); SODIUM LEVEL 137 MEQ/L (136-145); TOTAL PROTEIN 7.5 GM/DL (6.4-8.2)
== END ==
LOC: M WUC 10:04
PROVIDERS: ATTEND Physician Assistant Medical
DX: Z51.81 Encounter for therapeutic drug level monitoring (principal); Z79.899 Other long term (current) drug therapy; R56.9 Unspecified convulsions

== ENCOUNTER → 2021-04-10 | Outpatient (CLI) | payer MEDICARE, MEDICAID ==
--- NOTE | 2021-04-13 08:51 | DEXAMM ---
INDICATION: M81.0 AGE RELATED OSTEOPOROSIS. COMPARISON: 05/14/2008 as well as other prior exams. TECHNIQUE: Bone density was measured using dual-energy x-ray absorptiometry (DEXA). FINDINGS: LT radius, TOTAL BMD 0.535 g/cm2 Young Adult T-Score -2.3 Age Matched Z-Score -0.3. LT radius 33% BMD 0.722 g/cm2 Young Adult T-Score -1.8 Age Matched Z-Score 0.3. RT FEMUR, TOTAL BMD 0.818 g/cm2 Young Adult T-Score -1.5 Age Matched Z-Score 0.1. RT NECK BMD 0.816 g/cm2 Young Adult T-Score -1.6 Age Matched Z-Score 0.2. IMPRESSION: There is low bone density of the left radius. There is low bone density of the right hip. The density of the left radius has decreased 14.3% since initial exam on 05/14/2008. The density of the right hip has increased 7.8% since the initial exam on 09/24/2003. The density of the right hip has increased 2.1% since the most recent exam on 05/14/2008. FOLLOW-UP: Recommendation for the next bone density exam: 2 years. <Electronically signed by Ryan Rao > 04/13/21 [id number]
== END ==
LOC: M WHC 13:10
PROVIDERS: ATTEND Family Medicine
DX: Z12.31 Encounter for screening mammogram for malignant neoplasm of breast (principal); M81.0 Age-related osteoporosis without current pathological fracture; Z53.9 Procedure and treatment not carried out, unspecified reason; M85.851 Other specified disorders of bone density and structure, right thigh; M85.852 Other specified disorders of bone density and structure, left thigh

== ENCOUNTER → 2021-07-09 | Outpatient (CLI) | payer MEDICARE, MEDICAID ==
[2021-07-09 12:00] LABS: BASO # 0.1 10^3/uL (0.0-0.2); BASO % 0.8 % (0.0-1.0); EOS # 0.1 10^3/uL (0.0-0.5); HEMATOCRIT 40.3 % (36.0-47.0); HEMOGLOBIN 13.5 g/dl (12.0-15.5); LYMPH # 1.9 10^3/uL (1.5-5.0); LYMPH % 31.4 % (24.0-44.0); MEAN CORPUSCULAR HEMOGLOBIN 31.2 pg (27.0-33.0); MEAN CORPUSCULAR HGB CONC 33.5 g/dl (32.0-36.5); MEAN CORPUSCULAR VOLUME 93.1 fl (80.0-96.0); MONO # 0.5 10^3/uL (0.0-0.8); MONO % 8.6 % (2.0-8.0); NEUTROPHILS # 3.3 10^3/uL (1.5-8.5); NEUTROPHILS % 56.4 % (36.0-66.0); PLATELET COUNT, AUTOMATED 180 10^3/uL (150-450); RED BLOOD COUNT 4.33 10^6/uL (4.00-5.40); WHITE BLOOD COUNT 5.9 10^3/uL (4.0-10.0)
[2021-07-09 12:19] LABS: ALBUMIN 3.4 GM/DL (3.2-5.2); ALT/SGPT 18 U/L (12-78); BILIRUBIN,TOTAL 0.3 MG/DL (0.2-1.0); BLOOD UREA NITROGEN 15 MG/DL (7-18); CALCIUM LEVEL 8.6 MG/DL (8.8-10.2); CARBAMAZEPINE (TEGRETOL) LEVEL 5.8 UG/ML (4.0-10.0); CARBON DIOXIDE LEVEL 26 MEQ/L (21-32); CHLORIDE LEVEL 104 MEQ/L (98-107); CREATININE FOR GFR 0.93 MG/DL (0.55-1.30); GLOMERULAR FILTRATION RATE > 60.0 (>39); GLUCOSE, FASTING 95 MG/DL (70-100); SODIUM LEVEL 139 MEQ/L (136-145)
== END ==
LOC: M WUC 09:20
PROVIDERS: ATTEND Physician Assistant Medical
DX: Z51.81 Encounter for therapeutic drug level monitoring (principal); Z79.899 Other long term (current) drug therapy; R56.9 Unspecified convulsions

== ENCOUNTER → 2021-09-14 | Outpatient (CLI) | payer MEDICARE, MEDICAID ==
--- NOTE | 2021-09-14 12:30 | REP ---
INDICATION: MODERATE PERSISTENT ASTHMA, UNCOMP COMPARISON: None. TECHNIQUE: PA and lateral. FINDINGS: Severe scoliosis causes thoracic deformity and there is presumed chronic elevation to the right hemidiaphragm. The visualized aerated lung marion are relatively clear. No obvious consolidation, definite effusion or pneumothorax. IMPRESSION: Limited by lack of prior examination and severe scoliosis. No obvious acute process appreciated. <Electronically signed by Mauri Coronel > 09/14/21 [id number]
[2021-09-14 13:52] LABS: BASO % 0.4 % (0.0-1.0); EOS # 0.1 10^3/uL (0.0-0.5); EOS % 1.2 % (0.0-3.0); HEMATOCRIT 41.2 % (36.0-47.0); HEMOGLOBIN 13.7 g/dl (12.0-15.5); LYMPH # 2.7 10^3/uL (1.5-5.0); LYMPH % 38.7 % (24.0-44.0); MEAN CORPUSCULAR HGB CONC 33.3 g/dl (32.0-36.5); MEAN CORPUSCULAR VOLUME 93.2 fl (80.0-96.0); MONO # 0.7 10^3/uL (0.0-0.8); MONO % 9.4 % (2.0-8.0); NEUTROPHILS # 3.4 10^3/uL (1.5-8.5); NEUTROPHILS % 49.9 % (36.0-66.0); PLATELET COUNT, AUTOMATED 191 10^3/uL (150-450); RED BLOOD COUNT 4.42 10^6/uL (4.00-5.40); WHITE BLOOD COUNT 6.9 10^3/uL (4.0-10.0)
[2021-09-14 15:20] LABS: IMMUNOGLOBULIN E 4.3 IU/ML (<100)
== END ==
LOC: M RAD 11:54
PROVIDERS: ATTEND Internal Medicine Pulmonary Disease
DX: J45.40 Moderate persistent asthma, uncomplicated (principal); M41.84 Other forms of scoliosis, thoracic region

== ENCOUNTER → 2021-09-24 | Outpatient (CLI) | payer MEDICARE, MEDICAID ==
--- NOTE | 2021-09-24 11:57 | REP ---
INDICATION: LEFT SHOULDER TENDONITIS. COMPARISON: None. TECHNIQUE: Four views total FINDINGS: The acromioclavicular and glenohumeral relationships are within normal limits. There is no acute fracture, dislocation, or subluxation. IMPRESSION: No evidence of an acute osseous abnormality. <Electronically signed by Taz Dailey > 09/24/21 [id number]
== END ==
LOC: M ADAMS 11:11
PROVIDERS: ATTEND Family Medicine
DX: M77.8 Other enthesopathies, not elsewhere classified (principal)
CPT/HCPCS: 73030; G0463

== ENCOUNTER 2022-03-11 10:53 | Observation (INO) | payer MEDICARE, MEDICAID ==
[~2022-03-11] VITALS: Ht 154.9 cm; Wt 76.5 kg
[~2022-03-11 10:53] MED LIST changes: +ALEN70TA82 PO; +IPRA0.00 INH; +LATA0.0015 OU; +LEVO750T13 PO; +LUBR0.5D OU; +PRED10TA2 PO; +VITA200016 PO; +VITMTA PO; +ZOLO100T PO
[2022-03-11 11:38] LABS: BASO % 0.3 % (0.0-1.0); EOS # 0.1 10^3/uL (0.0-0.5); EOS % 0.9 % (0.0-3.0); HEMATOCRIT 38.4 % (36.0-47.0); HEMOGLOBIN 12.7 g/dl (12.0-15.5); LYMPH # 1.8 10^3/uL (1.5-5.0); LYMPH % 18.1 % (24.0-44.0); MEAN CORPUSCULAR HEMOGLOBIN 31.1 pg (27.0-33.0); MEAN CORPUSCULAR HGB CONC 33.1 g/dl (32.0-36.5); MEAN CORPUSCULAR VOLUME 94.1 fl (80.0-96.0); MONO # 1.1 10^3/uL (0.0-0.8); MONO % 10.8 % (2.0-8.0); NEUTROPHILS # 6.8 10^3/uL (1.5-8.5); NEUTROPHILS % 69.3 % (36.0-66.0); PLATELET COUNT, AUTOMATED 180 10^3/uL (150-450); RED BLOOD COUNT 4.08 10^6/uL (4.00-5.40); WHITE BLOOD COUNT 9.8 10^3/uL (4.0-10.0)
[2022-03-11] MEDS ORDERED: methylPREDNISolone 125MG 2ML VIAL IV ONE (11:50)
[2022-03-11] MEDS: COMBIVENT RESPIMAT 100-20MCG INHALER 4GM INH SCH ×2 (12:00→12:07)
[2022-03-11 12:06] LABS: CK-MB VALUE MASS 1.8 NG/ML (<3.6); MB/CK RELATIVE INDEX 2.31 (< OR =4)
[2022-03-11 12:07] LABS: ALBUMIN 3.3 GM/DL (3.2-5.2); ALT/SGPT 19 U/L (12-78); BILIRUBIN,DIRECT 0.2 MG/DL (0.0-0.2); BILIRUBIN,TOTAL 0.4 MG/DL (0.2-1.0); BLOOD UREA NITROGEN 11 MG/DL (7-18); CARBON DIOXIDE LEVEL 27 MEQ/L (21-32); CHLORIDE LEVEL 109 MEQ/L (98-107); CREATININE FOR GFR 0.84 MG/DL (0.55-1.30); GLOMERULAR FILTRATION RATE > 60.0 (>39); GLUCOSE, FASTING 98 MG/DL (70-100); POTASSIUM SERUM 3.8 MEQ/L (3.5-5.1); SODIUM LEVEL 142 MEQ/L (136-145); TOTAL PROTEIN 7.3 GM/DL (6.4-8.2)
[2022-03-11 12:20] LABS: VENOUS BASE EXCESS -0.9 (-2.0-2.0); VENOUS O2 SATURATION 74.1 % (60.0-80.0); VENOUS PARTIAL PRESSURE CO2 59.5 mmHg (38.0-50.0); VENOUS PARTIAL PRESSURE O2 39.5 mmHg (30.0-50.0); VENOUS PH 7.274 UNITS (7.330-7.430); VENOUS STANDARD HCO3 23.2 MEQ/L; VENOUS TOTAL CO2 28.8 MEQ/L (24.0-28.0)
[2022-03-11] MEDS ORDERED: ISOVUE-370 76% 100ML VIAL As Ordered ONE (12:42)
[2022-03-11 15:11] LABS: NT-PRO BNP 944 PG/ML (<125)
[2022-03-11] MEDS: IPRATROPIUM 0.5MG/ALBUTEROL 2.5MG INH SOL UD 3ML (DUONEB) NEB SCH ×4 (16:10→20:00)
[2022-03-11] MEDS ORDERED: ALBUTEROL SULFATE 2.5 MG/0.5 ML INH NEB SOLN NEB PRN (16:55)
[2022-03-11] MEDS ORDERED: BREO1INH INH (17:17)
[2022-03-11] MEDS ORDERED: NYST10CR TOP (17:17)
[2022-03-11] MEDS ORDERED: MILKSUS3 PO (17:17)
[2022-03-11] MEDS ORDERED: LACROIN OD (17:17)
[2022-03-11] MEDS ORDERED: CARB1TAB20 PO (17:17)
[2022-03-11] MEDS ORDERED: MOXI0.5S OD (17:17)
[2022-03-11] MEDS ORDERED: BISA10SU27 PR (17:17)
[2022-03-11] MEDS ORDERED: ENEMENE PR (17:17)
[2022-03-11] MEDS ORDERED: HOME MED LIST COMPLETE! XX SCH (17:20)
[2022-03-11] MEDS: POLYVINYL ALCOHOL OPHTH SOLN 15 ML(LIQUITEARS) OD SCH ×5 (17:40→23:40)
[2022-03-11] MEDS ORDERED: MOM 30ML SUSPENSION UDC PO PRN (17:40)
[2022-03-11 18:57] LABS: INR 1.14
[2022-03-11 19:00] VITALS: BP 106/56
[2022-03-11] MEDS ORDERED: MOXIFLOXACIN 0.5% OD SCH (21:00)
[2022-03-11] MEDS ORDERED: SERTRALINE HCL 50 MG TAB PO SCH (21:00)
[2022-03-11] MEDS ORDERED: EYE OD SCH (21:00)
[2022-03-11] MEDS: NYSTATIN CREAM 15 GM TOP SCH (21:00)
[2022-03-11] MEDS: methylPREDNISolone 125MG 2ML VIAL IV SCH (21:00)
[2022-03-11] MEDS ORDERED: LATANOPROST 0.005% OPHTH SOLN 2.5 ML OU SCH (21:00)
[2022-03-11] MEDS ORDERED: CLORAZEPATE 3.75MG TAB PO SCH (21:00)
[2022-03-11] MEDS: DOCUSATE SODIUM 100MG CAPSULE PO SCH (21:01)
[2022-03-11] MEDS: carBAMazepine 200MG TABLET PO SCH (21:01)
[2022-03-11] MEDS: TOPIRAMATE (TopAMAX) 100 MG TAB PO SCH (21:01)
[2022-03-12] MEDS ORDERED: UNRESOLVED CLARIFICATION ENTRY XX SCH (00:01)
[2022-03-12] MEDS ORDERED: UNRESOLVED PATIENT OWN MED ORDER XX SCH (00:01)
[2022-03-12] MEDS: POLYVINYL ALCOHOL OPHTH SOLN 15 ML(LIQUITEARS) OD SCH ×6 (01:40→12:47)
[2022-03-12] MEDS: methylPREDNISolone 125MG 2ML VIAL IV SCH (05:12)
[2022-03-12] MEDS: IPRATROPIUM 0.5MG/ALBUTEROL 2.5MG INH SOL UD 3ML (DUONEB) NEB SCH ×2 (05:20→07:24)
[2022-03-12 06:00] VITALS: BP 127/62
[2022-03-12 06:34] LABS: HEMATOCRIT 36.4 % (36.0-47.0); HEMOGLOBIN 11.8 g/dl (12.0-15.5); MEAN CORPUSCULAR HEMOGLOBIN 30.9 pg (27.0-33.0); MEAN CORPUSCULAR HGB CONC 32.4 g/dl (32.0-36.5); MEAN CORPUSCULAR VOLUME 95.3 fl (80.0-96.0); PLATELET COUNT, AUTOMATED 186 10^3/uL (150-450); RED BLOOD COUNT 3.82 10^6/uL (4.00-5.40); WHITE BLOOD COUNT 8.3 10^3/uL (4.0-10.0)
[2022-03-12 07:03] LABS: ALT/SGPT 16 U/L (12-78); BILIRUBIN,TOTAL 0.4 MG/DL (0.2-1.0); BLOOD UREA NITROGEN 13 MG/DL (7-18); CALCIUM LEVEL 8.6 MG/DL (8.8-10.2); CARBON DIOXIDE LEVEL 23 MEQ/L (21-32); CHLORIDE LEVEL 113 MEQ/L (98-107); CREATININE FOR GFR 0.78 MG/DL (0.55-1.30); GLOMERULAR FILTRATION RATE > 60.0 (>39); GLUCOSE, FASTING 117 MG/DL (70-100); POTASSIUM SERUM 4.6 MEQ/L (3.5-5.1); SODIUM LEVEL 143 MEQ/L (136-145); TOTAL PROTEIN 6.8 GM/DL (6.4-8.2)
[2022-03-12] MEDS ORDERED: MULTIVITAMINS/MINERALS THERAP 1 TAB PO SCH (09:00)
[2022-03-12] MEDS ORDERED: ENOXAPARIN 40MG/0.4ML SYRINGE (J1650 PER 10MG) SC SCH (09:00)
[2022-03-12] MEDS ORDERED: BISACODYL 10 MG SUPP PR PRN (09:00)
[2022-03-12] MEDS ORDERED: POTASSIUM CHLORIDE 10MEQ SR TABLET PO SCH (09:00)
[2022-03-12] MEDS: NYSTATIN CREAM 15 GM TOP SCH (09:00)
[2022-03-12] MEDS ORDERED: FUROSEMIDE 20 MG TAB PO SCH (09:00)
[2022-03-12] MEDS: TOPIRAMATE (TopAMAX) 100 MG TAB PO SCH (09:40)
[2022-03-12] MEDS: DOCUSATE SODIUM 100MG CAPSULE PO SCH (09:40)
[2022-03-12] MEDS: carBAMazepine 200MG TABLET PO SCH (09:40)
[2022-03-12] MEDS ORDERED: PRED20TA PO (11:17)
[2022-03-12] MEDS ORDERED: methylPREDNISolone 125MG 2ML VIAL IV SCH (17:00)
== END 2022-03-12 13:57 | disposition home or self-care (01) ==
LOC: EDBD 10:53 → M ED 10:53 → M ED INP 16:48 → M MSPAV 18:55
PROVIDERS: ADMIT Internal Medicine; ATTEND Internal Medicine
DX: J96.01 Acute respiratory failure with hypoxia (principal); J45.901 Unspecified asthma with (acute) exacerbation; R79.89 Other specified abnormal findings of blood chemistry; G40.909 Epilepsy, unspecified, not intractable, without status epilepticus; F70 Mild intellectual disabilities; H16.009 Unspecified corneal ulcer, unspecified eye; B18.2 Chronic viral hepatitis C; L21.9 Seborrheic dermatitis, unspecified; F32.9 Major depressive disorder, single episode, unspecified; Z79.899 Other long term (current) drug therapy; Z79.52 Long term (current) use of systemic steroids; Z79.51 Long term (current) use of inhaled steroids
CPT/HCPCS: 36415; 71045; 71275; 80048; 80053; 80076; 82550; 82553; 82803; 83605; 83880; 84484; 85025; 85027; 85610; 85730; 87040; 87486; 87581; 87633; 87798; 93005; 93041; 94640; 94760; 96372; 96374; 96376; 99285; G0378; J1650; J2930; Q9967

== ENCOUNTER 2022-03-13 04:58 | Emergency (ER) | payer MEDICARE, MEDICAID ==
[~2022-03-13] VITALS: Ht 154.9 cm; Wt 71.4 kg
[~2022-03-13 04:58] MED LIST changes: +BISA10SU27 PR; +BREO1INH INH; +CARB1TAB20 PO; +ENEMENE PR; +LACROIN OD; +MILKSUS3 PO; +MOXI0.5S OD; +NYST10CR TOP; +PRED20TA PO
[2022-03-13 06:03] LABS: BASO # 0.1 10^3/uL (0.0-0.2); BASO % 0.4 % (0.0-1.0); EOS % 0.1 % (0.0-3.0); HEMATOCRIT 35.6 % (36.0-47.0); HEMOGLOBIN 12.1 g/dl (12.0-15.5); LYMPH # 2.3 10^3/uL (1.5-5.0); MEAN CORPUSCULAR HEMOGLOBIN 31.9 pg (27.0-33.0); MEAN CORPUSCULAR VOLUME 93.9 fl (80.0-96.0); MONO # 1.4 10^3/uL (0.0-0.8); NEUTROPHILS # 10.3 10^3/uL (1.5-8.5); NEUTROPHILS % 72.1 % (36.0-66.0); PLATELET COUNT, AUTOMATED 232 10^3/uL (150-450); RED BLOOD COUNT 3.79 10^6/uL (4.00-5.40); WHITE BLOOD COUNT 14.2 10^3/uL (4.0-10.0)
[2022-03-13 06:18] LABS: VENOUS BASE EXCESS -4.2 (-2.0-2.0); VENOUS O2 SATURATION 92.8 % (60.0-80.0); VENOUS PARTIAL PRESSURE O2 66.9 mmHg (30.0-50.0); VENOUS PH 7.308 UNITS (7.330-7.430); VENOUS STANDARD HCO3 20.9 MEQ/L; VENOUS TOTAL CO2 23.4 MEQ/L (24.0-28.0)
[2022-03-13 06:19] LABS: ALBUMIN 3.2 GM/DL (3.2-5.2); BILIRUBIN,DIRECT 0.1 MG/DL (0.0-0.2); BILIRUBIN,TOTAL 0.2 MG/DL (0.2-1.0); CALCIUM LEVEL 8.9 MG/DL (8.8-10.2); CREATININE FOR GFR 1.01 MG/DL (0.55-1.30); GLOMERULAR FILTRATION RATE 57.2 (>39); POTASSIUM SERUM 4.6 MEQ/L (3.5-5.1)
[2022-03-13 06:20] LABS: CK-MB VALUE MASS 7.9 NG/ML (<3.6); MB/CK RELATIVE INDEX 9.08 (< OR =4)
[2022-03-13] MEDS ORDERED: ASPIRIN 81 MG CHEW TABLET PO ONE (06:40)
[2022-03-13] MEDS ORDERED: HEPARIN DRIP 25,000 UNITS in IV 1 EA IV SCH (06:45)
[2022-03-13] MEDS ORDERED: HEPARIN SOD (PORCINE) 5000UNITS/ML 1ML VIAL/SYRINGE IV ONE (06:45)
[2022-03-13] MEDS ORDERED: TENECTEPLASE 50 MG KIT (TNKase) (J3101 PER 1MG) IV ONE (06:45)
[2022-03-13 07:02] LABS: INR 1.11; PROTHROMBIN TIME 14.7 SECONDS (12.7-14.5)
[2022-03-13 07:03] LABS: PARTIAL THROMBOPLASTIN TIME 30.4 SECONDS (25.9-37.0)
[2022-03-13 07:43] VITALS: BP 121/56
== END 2022-03-13 07:50 | disposition short-term general hospital (02) ==
LOC: M ED 04:58
DX: I21.09 ST elevation (STEMI) myocardial infarction involving other coronary artery of anterior wall (principal); R00.0 Tachycardia, unspecified; I44.4 Left anterior fascicular block; R06.02 Shortness of breath; Z79.899 Other long term (current) drug therapy
CPT/HCPCS: 71045; 80048; 80076; 82550; 82553; 82803; 83605; 83880; 84484; 85025; 85610; 85730; 87486; 87581; 87633; 87798; 93005; 93041; 96365; 96375; 99285; J1644; J3101

== ENCOUNTER → 2022-03-26 | Outpatient (CLI) | payer MEDICARE, MEDICAID ==
[2022-03-26 15:42] LABS: HEMATOCRIT 35.9 % (36.0-47.0); HEMOGLOBIN 11.2 g/dl (12.0-15.5); MEAN CORPUSCULAR HEMOGLOBIN 29.8 pg (27.0-33.0); MEAN CORPUSCULAR HGB CONC 31.2 g/dl (32.0-36.5); MEAN CORPUSCULAR VOLUME 95.5 fl (80.0-96.0); PLATELET COUNT, AUTOMATED 255 10^3/uL (150-450); RED BLOOD COUNT 3.76 10^6/uL (4.00-5.40); WHITE BLOOD COUNT 6.5 10^3/uL (4.0-10.0)
[2022-03-26 16:16] LABS: CALCIUM LEVEL 9.2 MG/DL (8.8-10.2); CREATININE FOR GFR 1.27 MG/DL (0.55-1.30); GLOMERULAR FILTRATION RATE 43.9 (>39); POTASSIUM SERUM 4.7 MEQ/L (3.5-5.1)
== END ==
LOC: M LAB 14:14
PROVIDERS: ATTEND Internal Medicine Interventional Cardiology
DX: I25.5 Ischemic cardiomyopathy (principal); K92.1 Melena

== ENCOUNTER → 2022-04-20 | Outpatient (CLI) | payer MEDICARE, MEDICAID ==
[2022-04-20 12:59] LABS: HEMATOCRIT 34.3 % (36.0-47.0); HEMOGLOBIN 10.8 g/dl (12.0-15.5); MEAN CORPUSCULAR HEMOGLOBIN 29.9 pg (27.0-33.0); MEAN CORPUSCULAR HGB CONC 31.5 g/dl (32.0-36.5); PLATELET COUNT, AUTOMATED 185 10^3/uL (150-450); RED BLOOD COUNT 3.61 10^6/uL (4.00-5.40)
[2022-04-20 13:13] LABS: HEMOGLOBIN A1c 4.8 %
[2022-04-20 13:18] LABS: ALBUMIN 3.1 GM/DL (3.2-5.2); ALT/SGPT 10 U/L (12-78); BILIRUBIN,TOTAL 0.2 MG/DL (0.2-1.0); BLOOD UREA NITROGEN 10 MG/DL (7-18); CALCIUM LEVEL 8.2 MG/DL (8.8-10.2); CARBON DIOXIDE LEVEL 25 MEQ/L (21-32); CHLORIDE LEVEL 107 MEQ/L (98-107); CHOLESTEROL LEVEL 227 MG/DL (<200); CHOLESTEROL RISK RATIO 3.982 (<5); CREATININE FOR GFR 0.89 MG/DL (0.55-1.30); FERRITIN 50 NG/ML (8-252); FREE T4 0.72 NG/DL (0.76-1.46); GLOMERULAR FILTRATION RATE > 60.0 (>39); GLUCOSE, FASTING 95 MG/DL (70-100); HDL CHOLESTEROL 57 MG/DL (>40); IRON (FE) 37 UG/DL (50-170); LDL CHOLESTEROL 136 MG/DL (<100); NON-HDL-C 170 MG/DL; PERCENT SATURATION 15.9 % (13.2-45.0); POTASSIUM SERUM 4.3 MEQ/L (3.5-5.1); SODIUM LEVEL 138 MEQ/L (136-145); TOTAL IRON BINDING CAPACITY 233 UG/DL (250-450); TOTAL PROTEIN 6.5 GM/DL (6.4-8.2); TRIGLYCERIDES LEVEL 170 MG/DL (<150)
== END ==
LOC: M WUC 09:04
PROVIDERS: ATTEND Family Medicine
DX: K92.1 Melena (principal); E78.2 Mixed hyperlipidemia; I25.10 Atherosclerotic heart disease of native coronary artery without angina pectoris

== ENCOUNTER → 2022-04-29 | Outpatient (CLI) | payer MEDICARE, MEDICAID ==
[2022-04-29 12:59] LABS: HEMATOCRIT 31.7 % (36.0-47.0); HEMOGLOBIN 10.2 g/dl (12.0-15.5); MEAN CORPUSCULAR HEMOGLOBIN 30.8 pg (27.0-33.0); MEAN CORPUSCULAR HGB CONC 32.2 g/dl (32.0-36.5); MEAN CORPUSCULAR VOLUME 95.8 fl (80.0-96.0); PLATELET COUNT, AUTOMATED 181 10^3/uL (150-450); RED BLOOD COUNT 3.31 10^6/uL (4.00-5.40); WHITE BLOOD COUNT 5.5 10^3/uL (4.0-10.0)
[2022-04-29 13:02] LABS: BILIRUBIN,TOTAL 0.3 MG/DL (0.2-1.0); CALCIUM LEVEL 8.5 MG/DL (8.8-10.2); CHOLESTEROL RISK RATIO 3.426 (<5); CREATININE FOR GFR 0.98 MG/DL (0.55-1.30); GLOMERULAR FILTRATION RATE 59.2 (>39); PERCENT SATURATION 15.1 % (13.2-45.0); POTASSIUM SERUM 4.6 MEQ/L (3.5-5.1); TOTAL PROTEIN 6.1 GM/DL (6.4-8.2)
== END ==
LOC: M WUC 09:51
PROVIDERS: ATTEND Family Medicine
DX: I25.10 Atherosclerotic heart disease of native coronary artery without angina pectoris (principal); K92.1 Melena; D50.0 Iron deficiency anemia secondary to blood loss (chronic)

== ENCOUNTER → 2022-04-30 | Outpatient (REF) | payer MEDICARE, MEDICAID | LOC: M SFHCADAM 11:03 | PROVIDERS: ATTEND Family Medicine | DX: K92.1 Melena (principal) ==

== ENCOUNTER 2022-05-10 16:00 | Emergency (ER) | payer MEDICARE, MEDICAID ==
[~2022-05-10 16:00] MED LIST changes: +ASPI81CH33 PO; +ATOR1TAB21 PO; +BACIOIN23 OU; +BISO5TAB14 PO; +ISOS1TAB35 PO; +LOSA25TA13 PO; +PANT40TA29 PO
[2022-05-10] MEDS ORDERED: PROAAER10 INH (16:59)
[2022-05-10] MEDS ORDERED: ALPR0.25 PO (16:59)
[2022-05-10] MEDS ORDERED: IPRA0.00 INH (16:59)
[2022-05-10] MEDS ORDERED: CLOP75TA2 PO (16:59)
[2022-05-10] MEDS ORDERED: COMBIVENT RESPIMAT 100-20MCG INHALER 4GM INH STA (20:02)
[2022-05-10 20:44] LABS: BASO % 0.5 % (0.0-1.0); HEMATOCRIT 34.4 % (36.0-47.0); HEMOGLOBIN 11.6 g/dl (12.0-15.5); LYMPH # 1.2 10^3/uL (1.5-5.0); LYMPH % 19.8 % (24.0-44.0); MEAN CORPUSCULAR HEMOGLOBIN 30.8 pg (27.0-33.0); MEAN CORPUSCULAR HGB CONC 33.7 g/dl (32.0-36.5); MEAN CORPUSCULAR VOLUME 91.2 fl (80.0-96.0); MONO % 16.6 % (2.0-8.0); NEUTROPHILS # 3.7 10^3/uL (1.5-8.5); NEUTROPHILS % 62.3 % (36.0-66.0); PLATELET COUNT, AUTOMATED 177 10^3/uL (150-450); RED BLOOD COUNT 3.77 10^6/uL (4.00-5.40); WHITE BLOOD COUNT 5.9 10^3/uL (4.0-10.0)
[2022-05-10 21:09] LABS: ALBUMIN 3.5 GM/DL (3.2-5.2); BILIRUBIN,DIRECT 0.1 MG/DL (0.0-0.2); BILIRUBIN,TOTAL 0.3 MG/DL (0.2-1.0); TOTAL PROTEIN 7.4 GM/DL (6.4-8.2)
[2022-05-10 22:30] VITALS: BP 169/78
[2022-05-11] MEDS ORDERED: PATIENT COMMENT (18:39)
== END 2022-05-10 22:50 | disposition home or self-care (01) ==
LOC: M ED 16:00
DX: U07.1 COVID-19 (principal); I50.9 Heart failure, unspecified; I25.2 Old myocardial infarction; I10 Essential (primary) hypertension; J45.909 Unspecified asthma, uncomplicated; E78.5 Hyperlipidemia, unspecified; Z79.82 Long term (current) use of aspirin; Z79.899 Other long term (current) drug therapy

== ENCOUNTER 2022-05-11 12:46 | Observation (INO) | payer MEDICARE, MEDICAID ==
[~2022-05-11] VITALS: Ht 165.1 cm; Wt 72.2 kg
[~2022-05-11 12:46] MED LIST changes: +CLOP75TA2 PO
[2022-05-11] MEDS ORDERED: ACETAMINOPHEN TAB 650MG DOSE (2X325MG) PO ONE (14:25)
[2022-05-11] MEDS ORDERED: ALBUTEROL SULFATE 2.5 MG/0.5 ML INH NEB SOLN NEB ONE (14:25)
[2022-05-11] MEDS ORDERED: IPRATROPIUM 0.5MG/ALBUTEROL 2.5MG INH SOL UD 3ML (DUONEB) NEB ONE (14:25)
[2022-05-11 14:27] LABS: BASO # 0.1 10^3/uL (0.0-0.2); BASO % 0.8 % (0.0-1.0); EOS % 0.1 % (0.0-3.0); HEMOGLOBIN 13.1 g/dl (12.0-15.5); LYMPH # 4.8 10^3/uL (1.5-5.0); LYMPH % 51.3 % (24.0-44.0); MEAN CORPUSCULAR HEMOGLOBIN 29.9 pg (27.0-33.0); MEAN CORPUSCULAR HGB CONC 32.8 g/dl (32.0-36.5); MEAN CORPUSCULAR VOLUME 91.3 fl (80.0-96.0); MONO # 1.5 10^3/uL (0.0-0.8); MONO % 16.5 % (2.0-8.0); NEUTROPHILS # 2.8 10^3/uL (1.5-8.5); NEUTROPHILS % 30.4 % (36.0-66.0); PLATELET COUNT, AUTOMATED 218 10^3/uL (150-450); RED BLOOD COUNT 4.38 10^6/uL (4.00-5.40); WHITE BLOOD COUNT 9.3 10^3/uL (4.0-10.0)
[2022-05-11 14:48] LABS: CK-MB VALUE MASS 2.5 NG/ML (<3.6); MB/CK RELATIVE INDEX 3.91 (< OR =4)
[2022-05-11 14:56] LABS: ALT/SGPT 15 U/L (12-78); BILIRUBIN,DIRECT 0.1 MG/DL (0.0-0.2); BILIRUBIN,TOTAL 0.3 MG/DL (0.2-1.0); BLOOD UREA NITROGEN 13 MG/DL (7-18); CALCIUM LEVEL 9.2 MG/DL (8.8-10.2); CARBON DIOXIDE LEVEL 22 MEQ/L (21-32); CHLORIDE LEVEL 107 MEQ/L (98-107); CREATININE FOR GFR 0.88 MG/DL (0.55-1.30); FREE T4 0.67 NG/DL (0.76-1.46); GLOMERULAR FILTRATION RATE > 60.0 (>39); GLUCOSE, FASTING 118 MG/DL (70-100); LIPASE 619 U/L (73-393); NT-PRO BNP 2104 PG/ML (<125); POTASSIUM SERUM 4.4 MEQ/L (3.5-5.1); SODIUM LEVEL 135 MEQ/L (136-145); TOTAL PROTEIN 8.1 GM/DL (6.4-8.2)
[2022-05-11 16:11] LABS: CK-MB VALUE MASS 1.9 NG/ML (<3.6); MB/CK RELATIVE INDEX 3.88 (< OR =4)
[2022-05-11] MEDS ORDERED: methylPREDNISolone 125MG 2ML VIAL IV ONE (17:30)
[2022-05-11] MEDS ORDERED: ALBUTEROL 90 MCG/ACT 8GM HFA INHALER INH PRN (18:00)
[2022-05-11] MEDS ORDERED: methylPREDNISolone 125MG 2ML VIAL IV PRN (18:00)
[2022-05-11] MEDS ORDERED: ALBUTEROL SULFATE 2.5 MG/0.5 ML INH NEB SOLN INH PRN (18:00)
[2022-05-11] MEDS ORDERED: diphenhydrAMINE 50MG/ML VIAL (J1200) IV PRN (18:00)
[2022-05-11] MEDS ORDERED: EPINEPHrine INJ 1 MG/ML 1ML AMP IM PRN (18:00)
[2022-05-11] MEDS ORDERED: NS 1,000 ML IV SCH (18:00)
[2022-05-11] MEDS ORDERED: PATIENT COMMENT (18:39)
[2022-05-11] MEDS ORDERED: HOME MED LIST COMPLETE! XX SCH (18:40)
[2022-05-11] MEDS ORDERED: BEBTELOVIMAB 175MG 2ML VIAL (EUA) IV ONE (20:00)
[2022-05-11] MEDS: IPRATROPIUM 0.5MG/ALBUTEROL 2.5MG INH SOL UD 3ML (DUONEB) NEB SCH (20:17)
[2022-05-11] MEDS: SYMBICORT 160/4.5MCG INHALER 6GM INH SCH (20:18)
[2022-05-11] MEDS ORDERED: CLORAZEPATE 3.75MG TAB PO SCH (21:00)
[2022-05-11] MEDS ORDERED: SERTRALINE 100 MG TAB PO SCH (21:00)
[2022-05-11] MEDS ORDERED: ENOXAPARIN 40MG/0.4ML SYRINGE (J1650 PER 10MG) SC SCH (21:00)
[2022-05-11 23:09] VITALS: BP 141/65
[2022-05-11] MEDS ORDERED: PILL CUTTER 1 EACH XX PRN (23:45)
[2022-05-12] MEDS: carBAMazepine 200MG TABLET PO SCH ×2 (01:44→09:52)
[2022-05-12 04:00] VITALS: BP 132/62
[2022-05-12] MEDS: IPRATROPIUM 0.5MG/ALBUTEROL 2.5MG INH SOL UD 3ML (DUONEB) NEB SCH ×5 (04:25→16:00)
[2022-05-12 06:34] LABS: HEMATOCRIT 34.1 % (36.0-47.0); MEAN CORPUSCULAR HEMOGLOBIN 29.2 pg (27.0-33.0); MEAN CORPUSCULAR HGB CONC 31.7 g/dl (32.0-36.5); MEAN CORPUSCULAR VOLUME 92.2 fl (80.0-96.0); PLATELET COUNT, AUTOMATED 160 10^3/uL (150-450)
[2022-05-12 06:39] LABS: HEMOGLOBIN 10.8 g/dl (12.0-15.5)
[2022-05-12 06:54] LABS: BLOOD UREA NITROGEN 15 MG/DL (7-18); CALCIUM LEVEL 8.5 MG/DL (8.8-10.2); CARBON DIOXIDE LEVEL 24 MEQ/L (21-32); CHLORIDE LEVEL 111 MEQ/L (98-107); CREATININE FOR GFR 0.84 MG/DL (0.55-1.30); GLOMERULAR FILTRATION RATE > 60.0 (>39); GLUCOSE, FASTING 107 MG/DL (70-100); PHOSPHORUS LEVEL 3.5 MG/DL (2.5-4.9); POTASSIUM SERUM 4.4 MEQ/L (3.5-5.1); SODIUM LEVEL 139 MEQ/L (136-145)
[2022-05-12] MEDS: SYMBICORT 160/4.5MCG INHALER 6GM INH SCH (08:00)
[2022-05-12] MEDS ORDERED: ATORVASTATIN 20 MG TAB PO SCH (09:00)
[2022-05-12] MEDS ORDERED: ASPIRIN 81 MG CHEW TABLET PO SCH (09:00)
[2022-05-12] MEDS ORDERED: TOPIRAMATE (TopAMAX) 100 MG TAB PO SCH (09:00)
[2022-05-12] MEDS ORDERED: PANTOPRAZOLE 40MG TAB (PROTONIX) PO SCH (09:00)
[2022-05-12] MEDS ORDERED: LOSARTAN 25 MG TAB PO SCH (09:00)
[2022-05-12] MEDS ORDERED: predniSONE 10 MG TAB PO SCH (09:00)
[2022-05-12] MEDS ORDERED: bisoproloL fumarate 5 MG TAB PO SCH (09:00)
[2022-05-12] MEDS ORDERED: CLOPIDOGREL 75 MG TAB PO SCH (09:00)
[2022-05-12] MEDS ORDERED: ISOSORBIDE MON. (IMDUR) 30MG XR TAB PO SCH (09:00)
[2022-05-12 09:54] VITALS: BP 148/68
[2022-05-12] MEDS ORDERED: PRED10TA2 PO (10:06)
[2022-05-12 11:58] VITALS: O2SAT 92
[2022-05-12 12:00] VITALS: BP 0/0
[2022-05-12 14:57] VITALS: BP 154/68
== END 2022-05-12 16:42 | disposition home health service (06) ==
LOC: M ED 12:46 → M ED INP 12:47 → INTOOBSV 12:47 → UNDOADMIN 17:18 → M ED INP 17:18 → M 4MAIN 23:08
PROVIDERS: ADMIT Internal Medicine; ATTEND Internal Medicine
DX: U07.1 COVID-19 (principal); I50.9 Heart failure, unspecified; I25.2 Old myocardial infarction; I11.0 Hypertensive heart disease with heart failure; J45.901 Unspecified asthma with (acute) exacerbation; E78.5 Hyperlipidemia, unspecified; Z79.82 Long term (current) use of aspirin; Z79.899 Other long term (current) drug therapy

== ENCOUNTER 2022-05-13 20:22 | Inpatient (IN) | payer MEDICARE, MEDICAID ==
[~2022-05-13] VITALS: Ht 165.1 cm; Wt 73.4 kg
[~2022-05-13 20:22] MED LIST changes: +PATIENT COMMENT
[2022-05-13] MEDS ORDERED: IPRATROPIUM 0.5MG/ALBUTEROL 2.5MG INH SOL UD 3ML (DUONEB) NEB ONE ×2 (21:00→22:55)
[2022-05-13] MEDS ORDERED: ACETAMINOPHEN 325 MG TAB PO ONE (21:10)
[2022-05-13 21:21] LABS: BILIRUBIN, URINE MANUAL NEGATIVE (NEGATIVE); GLUCOSE, URINE (UA) MANUAL NEGATIVE (NEGATIVE); KETONE, URINE MANUAL 1+ mg/dL (NEGATIVE); UROBILINOGEN, URINE MANUAL NORMAL (NORMAL)
[2022-05-13 21:47] LABS: RBC, URINE 20-30 /hpf (0-3); SQUAMOUS EPITHELIAL CELL URINE LARGE AMOUNT /hpf (SMALL AMT)
[2022-05-13 21:49] LABS: AMORPHOUS SEDIMENT, URINE SMALL AMOUNT (NEGATIVE); BACTERIA, URINE SMALL AMOUNT; HYALINE CAST, URINE NONE SEEN /lpf (0-1)
[2022-05-13 22:12] LABS: ALBUMIN 3.7 GM/DL (3.2-5.2); BILIRUBIN,DIRECT 0.3 MG/DL (0.0-0.2); BILIRUBIN,TOTAL 0.4 MG/DL (0.2-1.0); CALCIUM LEVEL 8.5 MG/DL (8.8-10.2); CREATININE FOR GFR 0.98 MG/DL (0.55-1.30); GLOMERULAR FILTRATION RATE 59.2 (>39); POTASSIUM SERUM 4.1 MEQ/L (3.5-5.1); THYROID STIMULATING HORMONE 1.06 uIU/ML (0.358-3.740); THYROXINE (T4) 9.8 UG/DL (4.5-12.0); TOTAL PROTEIN 7.9 GM/DL (6.4-8.2)
[2022-05-13] MEDS ORDERED: cefTRIAXone SOD 1 GM in D5W MINI-BAG PLUS 50 ML IV ONE (22:55)
[2022-05-13 23:38] LABS: BASO % 0.1 % (0.0-1.0); HEMATOCRIT 33.5 % (36.0-47.0); HEMOGLOBIN 11.3 g/dl (12.0-15.5); LYMPH % 13.9 % (24.0-44.0); MEAN CORPUSCULAR HEMOGLOBIN 30.6 pg (27.0-33.0); MEAN CORPUSCULAR HGB CONC 33.7 g/dl (32.0-36.5); MEAN CORPUSCULAR VOLUME 90.8 fl (80.0-96.0); MONO # 1.7 10^3/uL (0.0-0.8); MONO % 7.8 % (2.0-8.0); NEUTROPHILS % 77.6 % (36.0-66.0); PLATELET COUNT, AUTOMATED 180 10^3/uL (150-450); RED BLOOD COUNT 3.69 10^6/uL (4.00-5.40); WHITE BLOOD COUNT 21.9 10^3/uL (4.0-10.0)
[2022-05-14] MEDS ORDERED: ALBUTEROL SULFATE 2.5 MG/0.5 ML INH NEB SOLN NEB PRN (00:30)
[2022-05-14] MEDS ORDERED: HOME MED LIST COMPLETE! XX SCH (00:30)
[2022-05-14] MEDS ORDERED: NS 500 ML IV ONE (00:50)
[2022-05-14] MEDS ORDERED: REMDESIVIR 200 MG in NS 250 ML IV ONE (04:00)
[2022-05-14 05:59] LABS: BASO % 0.2 % (0.0-1.0); HEMATOCRIT 35.4 % (36.0-47.0); HEMOGLOBIN 11.5 g/dl (12.0-15.5); LYMPH # 3.6 10^3/uL (1.5-5.0); MEAN CORPUSCULAR HEMOGLOBIN 30.1 pg (27.0-33.0); MEAN CORPUSCULAR HGB CONC 32.5 g/dl (32.0-36.5); MEAN CORPUSCULAR VOLUME 92.7 fl (80.0-96.0); MONO % 8.9 % (2.0-8.0); NEUTROPHILS # 12.8 10^3/uL (1.5-8.5); NEUTROPHILS % 70.3 % (36.0-66.0); PLATELET COUNT, AUTOMATED 186 10^3/uL (150-450); RED BLOOD COUNT 3.82 10^6/uL (4.00-5.40); WHITE BLOOD COUNT 18.1 10^3/uL (4.0-10.0)
[2022-05-14] MEDS ORDERED: SODIUM CHLORIDE 0.9% INJ 10 ML SYR IV ONE (06:00)
[2022-05-14 06:27] LABS: ALBUMIN 3.1 GM/DL (3.2-5.2); BILIRUBIN,DIRECT 0.3 MG/DL (0.0-0.2); BILIRUBIN,TOTAL 0.5 MG/DL (0.2-1.0); C REACTIVE PROTEIN QUANTITATIV 7.57 MG/DL (0.00-0.30); CALCIUM LEVEL 8.3 MG/DL (8.8-10.2); GLOMERULAR FILTRATION RATE 57.9 (>39); MAGNESIUM LEVEL 2.1 MG/DL (1.8-2.4); TOTAL PROTEIN 7.3 GM/DL (6.4-8.2)
[2022-05-14 06:32] LABS: INR 1.19; PROTHROMBIN TIME 15.5 SECONDS (12.7-14.5)
[2022-05-14 06:33] LABS: FIBRINOGEN 494 MG/DL (268-480); PARTIAL THROMBOPLASTIN TIME 32.1 SECONDS (25.9-37.0)
[2022-05-14] MEDS: ACETAMINOPHEN TAB 650MG DOSE (2X325MG) PO PRN ×2 (06:49→22:12)
[2022-05-14 07:02] LABS: D-DIMER QUANT > 4000 ng/ml (<500)
[2022-05-14] MEDS: LEVALBUTEROL 1.25 MG/0.5 ML CONCENTRATE NEB INH PRN ×2 (07:03→10:30)
[2022-05-14] MEDS: FLUTICASONE HFA 110 MCG 12 GM INHALER (FLOVENT) INH SCH ×2 (07:03→20:53)
[2022-05-14 07:13] LABS: ERYTHROCYTE SEDIMENTATION RATE 48 mm/hr (0-30)
[2022-05-14 07:26] LABS: MONO # 1.6 10^3/uL (0.0-0.8)
[2022-05-14] MEDS ORDERED: ISOVUE-370 76% 100ML VIAL As Ordered ONE (07:31)
[2022-05-14] MEDS: ASPIRIN 81 MG CHEW TABLET PO SCH (08:48)
[2022-05-14] MEDS: DOCUSATE SODIUM 100MG CAPSULE PO SCH ×2 (08:48→22:45)
[2022-05-14] MEDS: ATORVASTATIN 20 MG TAB PO SCH (08:49)
[2022-05-14] MEDS: CLOPIDOGREL 75 MG TAB PO SCH (08:49)
[2022-05-14] MEDS: ISOSORBIDE MON. (IMDUR) 30MG XR TAB PO SCH (08:49)
[2022-05-14] MEDS: TOPIRAMATE (TopAMAX) 100 MG TAB PO SCH ×2 (08:50→23:26)
[2022-05-14] MEDS: bisoproloL fumarate 5 MG TAB PO SCH (08:50)
[2022-05-14] MEDS: dexameTHASONE 4 MG/ML 1ML VIAL (J1100 PER 1MG) IV SCH (08:50)
[2022-05-14] MEDS: carBAMazepine 200MG TABLET PO SCH ×2 (08:50→23:26)
[2022-05-14] MEDS: ENOXAPARIN 40MG/0.4ML SYRINGE (J1650 PER 10MG) SC SCH (09:00)
[2022-05-14 22:25] VITALS: BP 139/63
[2022-05-14] MEDS: SERTRALINE HCL 50 MG TAB PO SCH (22:45)
[2022-05-14] MEDS: CLORAZEPATE 3.75MG TAB PO SCH (22:45)
[2022-05-14 22:52] VITALS: O2SAT 99
[2022-05-15] VITALS (8 sets, daily range): BP systolic 113–147; BP diastolic 55–65; O2SAT 91–99
[2022-05-15] MEDS: REMDESIVIR 100 MG in NS 250 ML IV SCH (04:34)
[2022-05-15] MEDS: SODIUM CHLORIDE 0.9% INJ 10 ML SYR IV SCH (05:41)
[2022-05-15] MEDS: LevoFLOXacin 750 MG TABLET PO SCH (05:41)
[2022-05-15] MEDS: FLUTICASONE HFA 110 MCG 12 GM INHALER (FLOVENT) INH SCH ×2 (07:08→20:09)
[2022-05-15 07:26] LABS: BASO % 0.3 % (0.0-1.0); HEMATOCRIT 31.1 % (36.0-47.0); HEMOGLOBIN 10.1 g/dl (12.0-15.5); LYMPH # 2.4 10^3/uL (1.5-5.0); LYMPH % 25.3 % (24.0-44.0); MEAN CORPUSCULAR HEMOGLOBIN 30.1 pg (27.0-33.0); MEAN CORPUSCULAR HGB CONC 32.5 g/dl (32.0-36.5); MEAN CORPUSCULAR VOLUME 92.6 fl (80.0-96.0); MONO # 0.9 10^3/uL (0.0-0.8); MONO % 9.8 % (2.0-8.0); NEUTROPHILS % 63.9 % (36.0-66.0); PLATELET COUNT, AUTOMATED 171 10^3/uL (150-450); RED BLOOD COUNT 3.36 10^6/uL (4.00-5.40); WHITE BLOOD COUNT 9.4 10^3/uL (4.0-10.0)
[2022-05-15 07:52] LABS: BLOOD UREA NITROGEN 18 MG/DL (7-18); CALCIUM LEVEL 7.9 MG/DL (8.8-10.2); CARBON DIOXIDE LEVEL 22 MEQ/L (21-32); CHLORIDE LEVEL 114 MEQ/L (98-107); CREATININE FOR GFR 0.76 MG/DL (0.55-1.30); GLOMERULAR FILTRATION RATE > 60.0 (>39); GLUCOSE, FASTING 97 MG/DL (70-100); MAGNESIUM LEVEL 2.1 MG/DL (1.8-2.4); POTASSIUM SERUM 3.6 MEQ/L (3.5-5.1); SODIUM LEVEL 143 MEQ/L (136-145)
[2022-05-15] MEDS: COMBIVENT RESPIMAT 100-20MCG INHALER 4GM INH SCH ×5 (08:00→23:26)
[2022-05-15] MEDS: DOCUSATE SODIUM 100MG CAPSULE PO SCH ×2 (09:35→21:19)
[2022-05-15] MEDS: TOPIRAMATE (TopAMAX) 100 MG TAB PO SCH ×2 (09:35→21:19)
[2022-05-15] MEDS: ISOSORBIDE MON. (IMDUR) 30MG XR TAB PO SCH (09:35)
[2022-05-15] MEDS: dexameTHASONE 4 MG/ML 1ML VIAL (J1100 PER 1MG) IV SCH (09:36)
[2022-05-15] MEDS: carBAMazepine 200MG TABLET PO SCH ×2 (09:37→21:19)
[2022-05-15] MEDS: CLOPIDOGREL 75 MG TAB PO SCH (09:37)
[2022-05-15] MEDS: ENOXAPARIN 40MG/0.4ML SYRINGE (J1650 PER 10MG) SC SCH (09:37)
[2022-05-15] MEDS: ASPIRIN 81 MG CHEW TABLET PO SCH (09:37)
[2022-05-15] MEDS: bisoproloL fumarate 5 MG TAB PO SCH (09:37)
[2022-05-15] MEDS: ATORVASTATIN 20 MG TAB PO SCH (09:37)
[2022-05-15] MEDS: CLORAZEPATE 3.75MG TAB PO SCH (21:19)
[2022-05-15] MEDS: SERTRALINE HCL 50 MG TAB PO SCH (21:19)
[2022-05-15] MEDS: ACETAMINOPHEN TAB 650MG DOSE (2X325MG) PO PRN (21:20)
[2022-05-16] VITALS: O2SAT 93
[2022-05-16] MEDS: COMBIVENT RESPIMAT 100-20MCG INHALER 4GM INH SCH ×6 (03:15→23:41)
[2022-05-16] MEDS: REMDESIVIR 100 MG in NS 250 ML IV SCH (04:06)
[2022-05-16 05:06] VITALS: O2SAT 92
[2022-05-16 05:07] VITALS: BP 135/60
[2022-05-16] MEDS: SODIUM CHLORIDE 0.9% INJ 10 ML SYR IV SCH (05:11)
[2022-05-16 06:39] LABS: BASO % 0.2 % (0.0-1.0); EOS % 0.1 % (0.0-3.0); HEMATOCRIT 30.9 % (36.0-47.0); HEMOGLOBIN 10.4 g/dl (12.0-15.5); LYMPH # 3.5 10^3/uL (1.5-5.0); LYMPH % 34.9 % (24.0-44.0); MEAN CORPUSCULAR HEMOGLOBIN 30.7 pg (27.0-33.0); MEAN CORPUSCULAR HGB CONC 33.7 g/dl (32.0-36.5); MEAN CORPUSCULAR VOLUME 91.2 fl (80.0-96.0); MONO # 0.9 10^3/uL (0.0-0.8); MONO % 8.9 % (2.0-8.0); NEUTROPHILS # 5.5 10^3/uL (1.5-8.5); NEUTROPHILS % 54.8 % (36.0-66.0); PLATELET COUNT, AUTOMATED 183 10^3/uL (150-450); RED BLOOD COUNT 3.39 10^6/uL (4.00-5.40); WHITE BLOOD COUNT 10.1 10^3/uL (4.0-10.0)
[2022-05-16 06:50] LABS: INR 1.37; PROTHROMBIN TIME 17.3 SECONDS (12.7-14.5)
[2022-05-16 06:51] LABS: PARTIAL THROMBOPLASTIN TIME 34.5 SECONDS (25.9-37.0)
[2022-05-16 07:10] LABS: ALBUMIN 2.8 GM/DL (3.2-5.2); ALT/SGPT 23 U/L (12-78); BILIRUBIN,DIRECT 0.2 MG/DL (0.0-0.2); BILIRUBIN,TOTAL 0.3 MG/DL (0.2-1.0); BLOOD UREA NITROGEN 21 MG/DL (7-18); CALCIUM LEVEL 7.7 MG/DL (8.8-10.2); CARBON DIOXIDE LEVEL 24 MEQ/L (21-32); CHLORIDE LEVEL 113 MEQ/L (98-107); FERRITIN 56 NG/ML (8-252); GLOMERULAR FILTRATION RATE > 60.0 (>39); GLUCOSE, FASTING 104 MG/DL (70-100); LDH LACTATE DEHYDROGENASE 158 U/L (84-246); MAGNESIUM LEVEL 2.1 MG/DL (1.8-2.4); NT-PRO BNP 949 PG/ML (<125); POTASSIUM SERUM 3.4 MEQ/L (3.5-5.1); SODIUM LEVEL 142 MEQ/L (136-145); TOTAL PROTEIN 6.1 GM/DL (6.4-8.2)
[2022-05-16] MEDS: FLUTICASONE HFA 110 MCG 12 GM INHALER (FLOVENT) INH SCH ×2 (07:16→19:41)
[2022-05-16 07:32] VITALS: BP 133/61
[2022-05-16] MEDS: carBAMazepine 200MG TABLET PO SCH ×2 (08:21→21:07)
[2022-05-16] MEDS: DOCUSATE SODIUM 100MG CAPSULE PO SCH ×2 (08:21→21:07)
[2022-05-16] MEDS: ASPIRIN 81 MG CHEW TABLET PO SCH (08:21)
[2022-05-16] MEDS: CLOPIDOGREL 75 MG TAB PO SCH (08:21)
[2022-05-16] MEDS: bisoproloL fumarate 5 MG TAB PO SCH (08:21)
[2022-05-16] MEDS: ISOSORBIDE MON. (IMDUR) 30MG XR TAB PO SCH (08:22)
[2022-05-16] MEDS: TOPIRAMATE (TopAMAX) 100 MG TAB PO SCH ×2 (08:22→21:07)
[2022-05-16] MEDS: POTASSIUM CHLORIDE 10MEQ SR TABLET PO SCH (08:22)
[2022-05-16] MEDS: ATORVASTATIN 20 MG TAB PO SCH (08:22)
[2022-05-16] MEDS: ENOXAPARIN 40MG/0.4ML SYRINGE (J1650 PER 10MG) SC SCH (08:23)
[2022-05-16] MEDS: dexameTHASONE 4 MG/ML 1ML VIAL (J1100 PER 1MG) IV SCH (08:23)
[2022-05-16] MEDS ORDERED: MUCI1TAB18 PO (08:47)
[2022-05-16] MEDS ORDERED: PRED10TA2 PO (08:47)
[2022-05-16] MEDS ORDERED: LEVO750T13 PO (08:47)
[2022-05-16] MEDS ORDERED: NIRM1TAB PO (08:47)
[2022-05-16] MEDS: guaiFENesin ER 600 MG TAB PO SCH ×2 (09:00→21:08)
[2022-05-16] MEDS ORDERED: SING10TA32 PO (09:15)
[2022-05-16] MEDS ORDERED: PROV108A INH (09:15)
[2022-05-16] MEDS ORDERED: predniSONE 20 MG TAB PO SCH (10:30)
[2022-05-16] MEDS: MONTELUKAST 10 MG TAB PO SCH (10:45)
[2022-05-16] MEDS: methylPREDNISolone 40MG 1ML VIAL IV SCH ×2 (13:18→17:22)
[2022-05-16 16:24] VITALS: BP 150/70
[2022-05-16] MEDS ORDERED: MOM 30ML SUSPENSION UDC PO PRN (17:05)
[2022-05-16] MEDS: ACETAMINOPHEN TAB 650MG DOSE (2X325MG) PO PRN (17:22)
[2022-05-16 19:37] VITALS: BP 130/61
[2022-05-16] MEDS: CLORAZEPATE 3.75MG TAB PO SCH (21:07)
[2022-05-16] MEDS: SERTRALINE HCL 50 MG TAB PO SCH (21:08)
[2022-05-17] MEDS: methylPREDNISolone 40MG 1ML VIAL IV SCH (00:41)
[2022-05-17] MEDS: REMDESIVIR 100 MG in NS 250 ML IV SCH (03:49)
[2022-05-17 04:00] VITALS: BP 175/72
[2022-05-17] MEDS: SODIUM CHLORIDE 0.9% INJ 10 ML SYR IV SCH (04:01)
[2022-05-17] MEDS: COMBIVENT RESPIMAT 100-20MCG INHALER 4GM INH SCH ×3 (04:49→12:02)
[2022-05-17] MEDS: LevoFLOXacin 750 MG TABLET PO SCH (05:30)
[2022-05-17 06:06] LABS: BASO % 0.2 % (0.0-1.0); HEMATOCRIT 33.5 % (36.0-47.0); HEMOGLOBIN 10.9 g/dl (12.0-15.5); LYMPH # 1.2 10^3/uL (1.5-5.0); LYMPH % 18.8 % (24.0-44.0); MEAN CORPUSCULAR HEMOGLOBIN 29.6 pg (27.0-33.0); MEAN CORPUSCULAR HGB CONC 32.5 g/dl (32.0-36.5); MONO # 0.2 10^3/uL (0.0-0.8); MONO % 2.8 % (2.0-8.0); NEUTROPHILS # 4.9 10^3/uL (1.5-8.5); NEUTROPHILS % 76.5 % (36.0-66.0); PLATELET COUNT, AUTOMATED 190 10^3/uL (150-450); RED BLOOD COUNT 3.68 10^6/uL (4.00-5.40); WHITE BLOOD COUNT 6.4 10^3/uL (4.0-10.0)
[2022-05-17 07:03] LABS: CALCIUM LEVEL 8.3 MG/DL (8.8-10.2); CREATININE FOR GFR 1.07 MG/DL (0.55-1.30); GLOMERULAR FILTRATION RATE 53.5 (>39); MAGNESIUM LEVEL 2.2 MG/DL (1.8-2.4); POTASSIUM SERUM 4.4 MEQ/L (3.5-5.1)
[2022-05-17 08:02] VITALS: BP 167/75
[2022-05-17] MEDS ORDERED: AMOX500T PO (08:05)
[2022-05-17] MEDS ORDERED: BACITAB PO (08:05)
[2022-05-17] MEDS: FLUTICASONE HFA 110 MCG 12 GM INHALER (FLOVENT) INH SCH (08:20)
[2022-05-17] MEDS: ATORVASTATIN 20 MG TAB PO SCH (08:24)
[2022-05-17] MEDS: ASPIRIN 81 MG CHEW TABLET PO SCH (08:24)
[2022-05-17] MEDS: DOCUSATE SODIUM 100MG CAPSULE PO SCH (08:24)
[2022-05-17] MEDS: ISOSORBIDE MON. (IMDUR) 30MG XR TAB PO SCH (08:25)
[2022-05-17] MEDS: POTASSIUM CHLORIDE 10MEQ SR TABLET PO SCH (08:25)
[2022-05-17] MEDS: MONTELUKAST 10 MG TAB PO SCH (08:26)
[2022-05-17 08:27] VITALS: BP 167/75
[2022-05-17] MEDS: TOPIRAMATE (TopAMAX) 100 MG TAB PO SCH (08:27)
[2022-05-17] MEDS: bisoproloL fumarate 5 MG TAB PO SCH (08:27)
[2022-05-17] MEDS: carBAMazepine 200MG TABLET PO SCH (08:27)
[2022-05-17] MEDS: guaiFENesin ER 600 MG TAB PO SCH (08:27)
[2022-05-17] MEDS: ENOXAPARIN 40MG/0.4ML SYRINGE (J1650 PER 10MG) SC SCH (08:28)
[2022-05-17] MEDS: CLOPIDOGREL 75 MG TAB PO SCH (08:28)
[2022-05-17] MEDS ORDERED: AMOXICILLIN 500 MG CAP PO SCH (09:00)
[2022-05-17] MEDS ORDERED: predniSONE 20 MG TAB PO SCH (09:00)
[2022-05-17 10:07] VITALS: BP 116/53
== END 2022-05-17 13:31 | disposition home or self-care (01) | DRG 871 ==
LOC: M ED 20:22 → M ED INP 05-14 00:11 → M PCU 05-14 22:22
PROVIDERS: ADMIT Family Medicine; ATTEND General Practice
DX: A41.9 Sepsis, unspecified organism (principal); U07.1 COVID-19; J18.9 Pneumonia, unspecified organism; N39.0 Urinary tract infection, site not specified; J45.901 Unspecified asthma with (acute) exacerbation; G40.909 Epilepsy, unspecified, not intractable, without status epilepticus; I25.10 Atherosclerotic heart disease of native coronary artery without angina pectoris; F70 Mild intellectual disabilities; Z79.899 Other long term (current) drug therapy; Z79.82 Long term (current) use of aspirin; B96.4 Proteus (mirabilis) (morganii) as the cause of diseases classified elsewhere; F32.A Depression, unspecified

== ENCOUNTER → 2022-06-13 | Outpatient (CLI) | payer MEDICARE, MEDICAID ==
[~2022-06-13] MED LIST changes: +AMOX500T PO; +BACIOIN23 OP; +BACITAB PO; +LEVO1TAB40 PO; -LEVO750T13 PO; +MUCI1TAB18 PO; +NIRM1TAB PO; +NYST-13 TOP; -NYST10CR TOP; +PANT20TA6 PO; +PROV108A INH; +SING10TA32 PO; +XANA0.25 PO
== END ==
LOC: M LABSMTC 10:42
PROVIDERS: ATTEND Anesthesiology
DX: Z01.812 Encounter for preprocedural laboratory examination (principal); Z20.822 Contact with and (suspected) exposure to COVID-19

== ENCOUNTER 2022-06-17 09:54 | Day surgery (SDC) | payer MEDICARE, MEDICAID ==
[~2022-06-17] VITALS: Ht 157.5 cm; Wt 70.4 kg
[~2022-06-17 09:54] MED LIST changes: +NS 1,000 ML IV ONE; +SIMETHICONE 40MG/0.6ML DROPS 30ML As Ordered ONE
[2022-06-17] MEDS ORDERED: fentaNYL 100 MCG/2 ML INJECTION As Ordered ONE (12:22)
[2022-06-17] MEDS ORDERED: propofoL 200 MG/20 ML VIAL As Ordered ONE (12:23)
[2022-06-17] MEDS ORDERED: LIDOCAINE 2% 100MG/5ML SDV (FOR ANES.) As Ordered ONE (12:23)
[2022-06-17 13:30] VITALS: BP 135/63
== END 2022-06-17 13:39 | disposition home or self-care (01) ==
LOC: M OPP 09:54
PROVIDERS: ATTEND Surgery
DX: Z12.11 Encounter for screening for malignant neoplasm of colon (principal); Z86.010 Personal history of colon polyps; Q43.8 Other specified congenital malformations of intestine; K44.9 Diaphragmatic hernia without obstruction or gangrene; K92.2 Gastrointestinal hemorrhage, unspecified; I25.2 Old myocardial infarction; I10 Essential (primary) hypertension; E78.00 Pure hypercholesterolemia, unspecified; J45.909 Unspecified asthma, uncomplicated; Z79.02 Long term (current) use of antithrombotics/antiplatelets; Z79.51 Long term (current) use of inhaled steroids; Z79.82 Long term (current) use of aspirin; Z79.899 Other long term (current) drug therapy; Z86.19 Personal history of other infectious and parasitic diseases; Z86.69 Personal history of other diseases of the nervous system and sense organs; Z86.79 Personal history of other diseases of the circulatory system
CPT/HCPCS: 43235; 45378; J3010

== ENCOUNTER → 2022-06-23 | Outpatient (CLI) | payer MEDICARE, MEDICAID ==
[~2022-06-23] MED LIST changes: -NS 1,000 ML IV ONE; -SIMETHICONE 40MG/0.6ML DROPS 30ML As Ordered ONE
[2022-06-23 12:03] LABS: BASO % 0.5 % (0.0-1.0); EOS # 0.1 10^3/uL (0.0-0.5); EOS % 1.6 % (0.0-3.0); HEMATOCRIT 32.5 % (36.0-47.0); HEMOGLOBIN 10.4 g/dl (12.0-15.5); LYMPH # 2.2 10^3/uL (1.5-5.0); MEAN CORPUSCULAR HEMOGLOBIN 29.5 pg (27.0-33.0); MEAN CORPUSCULAR VOLUME 92.1 fl (80.0-96.0); MONO # 0.7 10^3/uL (0.0-0.8); MONO % 10.8 % (2.0-8.0); NEUTROPHILS # 3.2 10^3/uL (1.5-8.5); PLATELET COUNT, AUTOMATED 240 10^3/uL (150-450); RED BLOOD COUNT 3.53 10^6/uL (4.00-5.40); WHITE BLOOD COUNT 6.3 10^3/uL (4.0-10.0)
[2022-06-23 12:24] LABS: CALCIUM LEVEL 8.7 MG/DL (8.8-10.2); CREATININE FOR GFR 1.22 MG/DL (0.55-1.30)
== END ==
LOC: M WUC 10:13
PROVIDERS: ATTEND Internal Medicine Interventional Cardiology
DX: I21.02 ST elevation (STEMI) myocardial infarction involving left anterior descending coronary artery (principal)

== ENCOUNTER → 2022-07-16 | Outpatient (CLI) | payer MEDICARE, MEDICAID ==
[~2022-07-16] MED LIST changes: +ALBU6.7H6 INH; +ALEN70TA87 PO; -FOSA70TA PO; -PROV108A INH
[2022-07-16 12:28] LABS: BASO % 0.7 % (0.0-1.0); EOS # 0.2 10^3/uL (0.0-0.5); EOS % 3.9 % (0.0-3.0); HEMOGLOBIN 10.5 g/dl (12.0-15.5); LYMPH # 2.1 10^3/uL (1.5-5.0); MEAN CORPUSCULAR HEMOGLOBIN 29.2 pg (27.0-33.0); MEAN CORPUSCULAR HGB CONC 31.8 g/dl (32.0-36.5); MEAN CORPUSCULAR VOLUME 91.7 fl (80.0-96.0); MONO # 0.6 10^3/uL (0.0-0.8); MONO % 11.5 % (2.0-8.0); NEUTROPHILS # 2.4 10^3/uL (1.5-8.5); NEUTROPHILS % 44.3 % (36.0-66.0); PLATELET COUNT, AUTOMATED 202 10^3/uL (150-450); WHITE BLOOD COUNT 5.4 10^3/uL (4.0-10.0)
[2022-07-16 13:00] LABS: CALCIUM LEVEL 8.7 MG/DL (8.8-10.2); CREATININE FOR GFR 1.01 MG/DL (0.55-1.30); GLOMERULAR FILTRATION RATE 57.2 (>39)
== END ==
LOC: M WUC 09:05
PROVIDERS: ATTEND Internal Medicine Interventional Cardiology
DX: I25.10 Atherosclerotic heart disease of native coronary artery without angina pectoris (principal)

== ENCOUNTER → 2022-07-18 | Outpatient (CLI) | payer MEDICARE, MEDICAID | LOC: M LABSMTC 10:37 | PROVIDERS: ATTEND Internal Medicine Interventional Cardiology | DX: Z01.812 Encounter for preprocedural laboratory examination (principal); Z20.822 Contact with and (suspected) exposure to COVID-19 ==

== ENCOUNTER 2022-07-22 18:49 | Emergency (ER) | payer MEDICARE, MEDICAID ==
[2022-07-22] MEDS ORDERED: IPRATROPIUM 0.5MG/ALBUTEROL 2.5MG INH SOL UD 3ML (DUONEB) NEB ONE (20:25)
[2022-07-22] MEDS ORDERED: predniSONE 20 MG TAB PO ONE (20:25)
[2022-07-22 21:06] LABS: BASO % 0.3 % (0.0-1.0); EOS # 0.1 10^3/uL (0.0-0.5); EOS % 0.7 % (0.0-3.0); HEMATOCRIT 32.5 % (36.0-47.0); HEMOGLOBIN 10.3 g/dl (12.0-15.5); LYMPH # 1.3 10^3/uL (1.5-5.0); LYMPH % 15.2 % (24.0-44.0); MEAN CORPUSCULAR HEMOGLOBIN 28.8 pg (27.0-33.0); MEAN CORPUSCULAR HGB CONC 31.7 g/dl (32.0-36.5); MEAN CORPUSCULAR VOLUME 90.8 fl (80.0-96.0); MONO # 0.8 10^3/uL (0.0-0.8); MONO % 9.3 % (2.0-8.0); NEUTROPHILS # 6.4 10^3/uL (1.5-8.5); PLATELET COUNT, AUTOMATED 164 10^3/uL (150-450); RED BLOOD COUNT 3.58 10^6/uL (4.00-5.40); WHITE BLOOD COUNT 8.6 10^3/uL (4.0-10.0)
[2022-07-22 21:27] LABS: BLOOD UREA NITROGEN 16 MG/DL (7-18); CALCIUM LEVEL 8.7 MG/DL (8.8-10.2); CARBON DIOXIDE LEVEL 25 MEQ/L (21-32); CHLORIDE LEVEL 109 MEQ/L (98-107); GLOMERULAR FILTRATION RATE > 60.0 (>39); GLUCOSE, FASTING 118 MG/DL (70-100); POTASSIUM SERUM 4.8 MEQ/L (3.5-5.1); SODIUM LEVEL 138 MEQ/L (136-145)
[2022-07-22] MEDS ORDERED: IPRA0.00 INH (22:44)
[2022-07-22] MEDS ORDERED: PRED20TA PO (22:44)
[2022-07-22 23:02] VITALS: BP 136/62
== END 2022-07-22 23:40 | disposition home or self-care (01) ==
LOC: M ED 18:49
DX: U07.1 COVID-19 (principal); M79.652 Pain in left thigh; J98.01 Acute bronchospasm; B34.8 Other viral infections of unspecified site; I10 Essential (primary) hypertension; K21.9 Gastro-esophageal reflux disease without esophagitis; J45.909 Unspecified asthma, uncomplicated; H40.9 Unspecified glaucoma; Z95.5 Presence of coronary angioplasty implant and graft; Z96.642 Presence of left artificial hip joint; M43.26 Fusion of spine, lumbar region; M16.11 Unilateral primary osteoarthritis, right hip; Z79.82 Long term (current) use of aspirin; Z79.899 Other long term (current) drug therapy
CPT/HCPCS: 71045; 73502; 80048; 84484; 85025; 87486; 87581; 87633; 87798; 93005; 94640; 99284; J7512

== ENCOUNTER → 2022-08-04 | Outpatient (CLI) | payer MEDICARE, MEDICAID ==
[2022-08-04 10:19] LABS: HEMOGLOBIN 10.3 g/dl (12.0-15.5); MEAN CORPUSCULAR HGB CONC 32.2 g/dl (32.0-36.5); MEAN CORPUSCULAR VOLUME 90.1 fl (80.0-96.0); PLATELET COUNT, AUTOMATED 197 10^3/uL (150-450); RED BLOOD COUNT 3.55 10^6/uL (4.00-5.40); WHITE BLOOD COUNT 6.8 10^3/uL (4.0-10.0)
[2022-08-04 11:10] LABS: ALBUMIN 3.4 GM/DL (3.2-5.2); ALT/SGPT 14 U/L (12-78); BILIRUBIN,TOTAL 0.3 MG/DL (0.2-1.0); BLOOD UREA NITROGEN 19 MG/DL (7-18); CALCIUM LEVEL 8.5 MG/DL (8.8-10.2); CARBON DIOXIDE LEVEL 24 MEQ/L (21-32); CHLORIDE LEVEL 111 MEQ/L (98-107); CHOLESTEROL LEVEL 146 MG/DL (<200); CHOLESTEROL RISK RATIO 2.115 (<5); CREATININE FOR GFR 0.94 MG/DL (0.55-1.30); FERRITIN 83 NG/ML (8-252); GLOMERULAR FILTRATION RATE > 60.0 (>39); GLUCOSE, FASTING 101 MG/DL (70-100); HDL CHOLESTEROL 69 MG/DL (>40); IRON (FE) 41 UG/DL (50-170); LDL CHOLESTEROL 62 MG/DL (<100); NON-HDL-C 77 MG/DL; PERCENT SATURATION 16.5 % (13.2-45.0); POTASSIUM SERUM 4.6 MEQ/L (3.5-5.1); SODIUM LEVEL 139 MEQ/L (136-145); TOTAL IRON BINDING CAPACITY 249 UG/DL (250-450); TOTAL PROTEIN 6.7 GM/DL (6.4-8.2); TRIGLYCERIDES LEVEL 74 MG/DL (<150)
== END ==
LOC: M WUC 08:31
PROVIDERS: ATTEND Family Medicine
DX: E78.5 Hyperlipidemia, unspecified (principal); K92.1 Melena; D50.0 Iron deficiency anemia secondary to blood loss (chronic)

== ENCOUNTER → 2022-11-08 | Outpatient (CLI) | payer MEDICARE, MEDICAID ==
[2022-11-08 18:04] LABS: HEMATOCRIT 33.8 % (36.0-47.0); HEMOGLOBIN 10.8 g/dl (12.0-15.5); MEAN CORPUSCULAR HEMOGLOBIN 27.6 pg (27.0-33.0); MEAN CORPUSCULAR VOLUME 86.4 fl (80.0-96.0); PLATELET COUNT, AUTOMATED 178 10^3/uL (150-450); RED BLOOD COUNT 3.91 10^6/uL (4.00-5.40); WHITE BLOOD COUNT 5.9 10^3/uL (4.0-10.0)
[2022-11-08 18:27] LABS: ALBUMIN 3.5 G/DL (3.2-5.2); ALKALINE PHOSPHATASE 111 U/L (46-116); ALT/SGPT 12 U/L (7.0-40); AST/SGOT 17 U/L (<34); BILIRUBIN,TOTAL 0.3 MG/DL (0.3-1.2); BLOOD UREA NITROGEN 21 MG/DL (9-23); CALCIUM LEVEL 8.4 MG/DL (8.3-10.6); CARBON DIOXIDE LEVEL 24 MMOL/L (20-31); CHLORIDE LEVEL 101 MMOL/L (98-107); CHOLESTEROL LEVEL 143 MG/DL (<200); CHOLESTEROL RISK RATIO 2.62 (<5); CREATININE FOR GFR 0.89 MG/DL (0.55-1.30); FERRITIN 35.4 NG/ML (7.3-270.7); GLOMERULAR FILTRATION RATE > 60.0 (>39); GLUCOSE, FASTING 90 MG/DL (74-106); HDL CHOLESTEROL 54.5 MG/DL (>40); IRON (FE) 32 UG/DL (50-170); LDL CHOLESTEROL 71.5 MG/DL (<100); NON-HDL-C 89 MG/DL; POTASSIUM SERUM 4.5 MMOL/L (3.5-5.1); SODIUM LEVEL 132 MMOL/L (136-145); TOTAL IRON BINDING CAPACITY 292 UG/DL (250-425); TOTAL PROTEIN 6.9 G/DL (5.7-8.2); TRIGLYCERIDES LEVEL 85 MG/DL (<150)
== END ==
LOC: M LAB 16:38
PROVIDERS: ATTEND Family Medicine
DX: E78.5 Hyperlipidemia, unspecified (principal); D50.0 Iron deficiency anemia secondary to blood loss (chronic); I25.10 Atherosclerotic heart disease of native coronary artery without angina pectoris

== ENCOUNTER → 2022-11-29 | Outpatient (CLI) | payer MEDICARE, MEDICAID | LOC: M WHC 10:54 | PROVIDERS: ATTEND Family Medicine | DX: Z12.31 Encounter for screening mammogram for malignant neoplasm of breast (principal) ==

== ENCOUNTER → 2023-01-27 | Outpatient (CLI) | payer MEDICARE, MEDICAID ==
[~2023-01-27] MED LIST changes: +MONT-5 PO; -SING10TA32 PO
[2023-01-27 13:49] LABS: HEMATOCRIT 37.3 % (36.0-47.0); HEMOGLOBIN 12.4 g/dl (12.0-15.5); MEAN CORPUSCULAR HGB CONC 33.2 g/dl (32.0-36.5); MEAN CORPUSCULAR VOLUME 90.3 fl (80.0-96.0); PLATELET COUNT, AUTOMATED 188 10^3/uL (150-450); RED BLOOD COUNT 4.13 10^6/uL (4.00-5.40); WHITE BLOOD COUNT 7.1 10^3/uL (4.0-10.0)
[2023-01-27 14:07] LABS: IRON (FE) 75 UG/DL (50-170); PERCENT SATURATION 29.8 % (13.2-45.0); TOTAL IRON BINDING CAPACITY 252 UG/DL (250-425)
[2023-01-27 14:08] LABS: ALBUMIN 3.4 G/DL (3.2-5.2); ALKALINE PHOSPHATASE 120 U/L (46-116); ALT/SGPT 20 U/L (7.0-40); AST/SGOT 19 U/L (<34); BILIRUBIN,TOTAL 0.3 MG/DL (0.3-1.2); BLOOD UREA NITROGEN 17 MG/DL (9-23); CALCIUM LEVEL 8.5 MG/DL (8.3-10.6); CARBON DIOXIDE LEVEL 28 MMOL/L (20-31); CHLORIDE LEVEL 102 MMOL/L (98-107); CHOLESTEROL LEVEL 125 MG/DL (<200); CHOLESTEROL RISK RATIO 2.35 (<5); CREATININE FOR GFR 0.96 MG/DL (0.55-1.30); GLOMERULAR FILTRATION RATE > 60.0 (>39); GLUCOSE, FASTING 67 MG/DL (74-106); LDL CHOLESTEROL 48.8 MG/DL (<100); POTASSIUM SERUM 4.4 MMOL/L (3.5-5.1); SODIUM LEVEL 134 MMOL/L (136-145); TOTAL PROTEIN 6.6 G/DL (5.7-8.2); TRIGLYCERIDES LEVEL 116 MG/DL (<150)
[2023-01-27 14:10] LABS: FERRITIN 63.6 NG/ML (7.3-270.7)
== END ==
LOC: M WUC 10:16
PROVIDERS: ATTEND Family Medicine
DX: D50.0 Iron deficiency anemia secondary to blood loss (chronic) (principal); I25.10 Atherosclerotic heart disease of native coronary artery without angina pectoris; E78.2 Mixed hyperlipidemia

== ENCOUNTER → 2023-02-08 | Outpatient (CLI) | payer MEDICARE, MEDICAID ==
[2023-02-08 13:20] LABS: HEMATOCRIT 36.6 % (36.0-47.0); HEMOGLOBIN 12.2 g/dl (12.0-15.5); MEAN CORPUSCULAR HEMOGLOBIN 30.1 pg (27.0-33.0); MEAN CORPUSCULAR HGB CONC 33.3 g/dl (32.0-36.5); MEAN CORPUSCULAR VOLUME 90.4 fl (80.0-96.0); PLATELET COUNT, AUTOMATED 197 10^3/uL (150-450); RED BLOOD COUNT 4.05 10^6/uL (4.00-5.40)
[2023-02-08 13:54] LABS: TOTAL IRON BINDING CAPACITY 247 UG/DL (250-425)
[2023-02-08 13:57] LABS: ALBUMIN 3.6 G/DL (3.2-5.2); ALKALINE PHOSPHATASE 124 U/L (46-116); ALT/SGPT 21 U/L (7.0-40); AST/SGOT 23 U/L (<34); BILIRUBIN,TOTAL 0.3 MG/DL (0.3-1.2); BLOOD UREA NITROGEN 14 MG/DL (9-23); CALCIUM LEVEL 8.5 MG/DL (8.3-10.6); CARBON DIOXIDE LEVEL 26 MMOL/L (20-31); CHLORIDE LEVEL 105 MMOL/L (98-107); CHOLESTEROL LEVEL 125 MG/DL (<200); CHOLESTEROL RISK RATIO 2.38 (<5); CREATININE FOR GFR 0.92 MG/DL (0.55-1.30); FERRITIN 69.3 NG/ML (7.3-270.7); GLOMERULAR FILTRATION RATE > 60.0 (>39); GLUCOSE, FASTING 74 MG/DL (74-106); HDL CHOLESTEROL 52.4 MG/DL (>40); IRON (FE) 92 UG/DL (50-170); LDL CHOLESTEROL 54.6 MG/DL (<100); NON-HDL-C 72.6 MG/DL; PERCENT SATURATION 37.2 % (13.2-45.0); POTASSIUM SERUM 4.4 MMOL/L (3.5-5.1); SODIUM LEVEL 137 MMOL/L (136-145); TOTAL PROTEIN 6.8 G/DL (5.7-8.2); TRIGLYCERIDES LEVEL 90 MG/DL (<150)
== END ==
LOC: M WUC 09:55
PROVIDERS: ATTEND Family Medicine
DX: D50.0 Iron deficiency anemia secondary to blood loss (chronic) (principal); I25.10 Atherosclerotic heart disease of native coronary artery without angina pectoris; E78.2 Mixed hyperlipidemia

== ENCOUNTER → 2023-02-14 | Outpatient (REF) | payer MEDICARE, MEDICAID | LOC: M LAB REF 16:36 | PROVIDERS: ATTEND Nurse Practitioner Family | DX: D64.9 Anemia, unspecified (principal) ==

== ENCOUNTER 2023-03-03 11:33 | Day surgery (SDC) | payer MEDICARE, MEDICAID ==
[~2023-03-03] VITALS: Ht 154.9 cm; Wt 71.8 kg
[~2023-03-03 11:33] MED LIST changes: +APAP325T4 PO; +ERYT5OIN25 OD; +FERR324T2 PO; +NS 1,000 ML IV ONE; +POTA-298 PO; -POTA1TAB14 PO; +PROA1AER2 INH
[2023-03-03] MEDS ORDERED: fentaNYL 100 MCG/2 ML INJECTION As Ordered ONE (13:40)
[2023-03-03] MEDS ORDERED: propofoL 200 MG/20 ML VIAL As Ordered ONE (13:40)
[2023-03-03] MEDS ORDERED: PHENYLephrine 500MCG 5ML (100MCG/ML) SYRINGE As Ordered ONE (13:40)
[2023-03-03] MEDS ORDERED: LIDOCAINE 2% 100MG/5ML SDV (FOR ANES.) As Ordered ONE (13:40)
[2023-03-03 14:26] VITALS: BP 138/74
== END 2023-03-03 14:52 | disposition home or self-care (01) ==
LOC: M OPP 11:33
PROVIDERS: ATTEND Internal Medicine Gastroenterology
DX: D12.6 Benign neoplasm of colon, unspecified (principal); K64.4 Residual hemorrhoidal skin tags; K64.8 Other hemorrhoids; D62 Acute posthemorrhagic anemia; K22.70 Barrett's esophagus without dysplasia; K29.70 Gastritis, unspecified, without bleeding; Z79.02 Long term (current) use of antithrombotics/antiplatelets; Z79.51 Long term (current) use of inhaled steroids; Z79.82 Long term (current) use of aspirin; Z79.899 Other long term (current) drug therapy
CPT/HCPCS: 43239; 45385; 88305; J2370; J3010

== ENCOUNTER → 2023-03-16 | Outpatient (CLI) | payer MEDICARE, MEDICAID ==
[~2023-03-16] MED LIST changes: -NS 1,000 ML IV ONE
== END ==
LOC: M RAD 11:19
PROVIDERS: ATTEND Family Medicine
DX: I70.203 Unspecified atherosclerosis of native arteries of extremities, bilateral legs (principal)

== ENCOUNTER → 2023-04-25 | Outpatient (CLI) | payer MEDICARE, MEDICAID ==
[2023-04-25 09:52] LABS: HEMATOCRIT 38.1 % (36.0-47.0); HEMOGLOBIN 12.6 g/dl (12.0-15.5); MEAN CORPUSCULAR HGB CONC 33.1 g/dl (32.0-36.5); MEAN CORPUSCULAR VOLUME 93.8 fl (80.0-96.0); PLATELET COUNT, AUTOMATED 176 10^3/uL (150-450); RED BLOOD COUNT 4.06 10^6/uL (4.00-5.40); WHITE BLOOD COUNT 5.8 10^3/uL (4.0-10.0)
[2023-04-25 09:59] LABS: CALCIUM LEVEL 8.4 MG/DL (8.3-10.6); CREATININE FOR GFR 0.98 MG/DL (0.55-1.30); GLOMERULAR FILTRATION RATE 59.1 (>39); PERCENT SATURATION 37.9 % (13.2-45.0)
[2023-04-25 10:01] LABS: FERRITIN 100.1 NG/ML (7.3-270.7)
== END ==
LOC: M LAB 09:04
PROVIDERS: ATTEND Family Medicine
DX: D50.0 Iron deficiency anemia secondary to blood loss (chronic) (principal); I73.9 Peripheral vascular disease, unspecified

== ENCOUNTER → 2023-06-07 | Outpatient (CLI) | payer MEDICARE, MEDICAID ==
[2023-06-07 10:33] LABS: BASO % 0.6 % (0.0-1.0); EOS # 0.2 10^3/uL (0.0-0.5); EOS % 3.1 % (0.0-3.0); HEMATOCRIT 37.2 % (36.0-47.0); HEMOGLOBIN 12.4 g/dl (12.0-15.5); LYMPH % 29.6 % (24.0-44.0); MEAN CORPUSCULAR HEMOGLOBIN 31.2 pg (27.0-33.0); MEAN CORPUSCULAR HGB CONC 33.3 g/dl (32.0-36.5); MEAN CORPUSCULAR VOLUME 93.5 fl (80.0-96.0); MONO # 0.6 10^3/uL (0.0-0.8); MONO % 8.7 % (2.0-8.0); NEUTROPHILS # 3.9 10^3/uL (1.5-8.5); NEUTROPHILS % 57.3 % (36.0-66.0); PLATELET COUNT, AUTOMATED 193 10^3/uL (150-450); RED BLOOD COUNT 3.98 10^6/uL (4.00-5.40); WHITE BLOOD COUNT 6.9 10^3/uL (4.0-10.0)
[2023-06-07 11:01] LABS: FERRITIN 101.7 NG/ML (7.3-270.7)
[2023-06-07 11:03] LABS: CREATININE FOR GFR 1.04 MG/DL (0.55-1.30); FOLATE 10.7 NG/ML (>5.4); GLOMERULAR FILTRATION RATE 55.1 (>39); PERCENT SATURATION 32.6 % (13.2-45.0)
[2023-06-07 17:47] LABS: BACTERIA, URINE AUTO NEGATIVE (NEGATIVE); RBC, URINE AUTO 0 /HPF (0-3); SQUAMOUS EPITHELIAL CELL UR AU 1 /HPF (0-6); WBC, URINE AUTO 81 /HPF (0-3)
== END ==
LOC: M WUC 08:34
PROVIDERS: ATTEND Internal Medicine Gastroenterology
DX: K63.5 Polyp of colon (principal); D64.9 Anemia, unspecified

== ENCOUNTER → 2023-07-28 | Outpatient (CLI) | payer MEDICARE, MEDICAID | LOC: M WHC 07-11 09:34 | PROVIDERS: ATTEND Family Medicine | DX: M85.89 Other specified disorders of bone density and structure, multiple sites (principal) ==

== ENCOUNTER → 2023-08-02 | Outpatient (CLI) | payer MEDICARE, MEDICAID ==
[2023-08-02 11:00] LABS: BASO % 0.5 % (0.0-1.0); EOS # 0.2 10^3/uL (0.0-0.5); EOS % 2.8 % (0.0-3.0); HEMATOCRIT 38.4 % (36.0-47.0); HEMOGLOBIN 13.1 g/dl (12.0-15.5); LYMPH # 1.9 10^3/uL (1.5-5.0); MEAN CORPUSCULAR HEMOGLOBIN 31.8 pg (27.0-33.0); MEAN CORPUSCULAR HGB CONC 34.1 g/dl (32.0-36.5); MEAN CORPUSCULAR VOLUME 93.2 fl (80.0-96.0); MONO # 0.6 10^3/uL (0.0-0.8); MONO % 9.6 % (2.0-8.0); NEUTROPHILS # 3.6 10^3/uL (1.5-8.5); NEUTROPHILS % 56.2 % (36.0-66.0); PLATELET COUNT, AUTOMATED 179 10^3/uL (150-450); RED BLOOD COUNT 4.12 10^6/uL (4.00-5.40); WHITE BLOOD COUNT 6.4 10^3/uL (4.0-10.0)
[2023-08-02 11:23] LABS: ALBUMIN 3.4 G/DL (3.2-5.2); ALKALINE PHOSPHATASE 102 U/L (46-116); ALT/SGPT 19 U/L (7.0-40); AST/SGOT 15 U/L (<34); BILIRUBIN,TOTAL 0.4 MG/DL (0.3-1.2); BLOOD UREA NITROGEN 21 MG/DL (9-23); CALCIUM LEVEL 8.5 MG/DL (8.3-10.6); CARBON DIOXIDE LEVEL 28 MMOL/L (20-31); CHLORIDE LEVEL 106 MMOL/L (98-107); CREATININE FOR GFR 0.93 MG/DL (0.55-1.30); GLOMERULAR FILTRATION RATE > 60.0 (>39); GLUCOSE, FASTING 85 MG/DL (74-106); POTASSIUM SERUM 4.4 MMOL/L (3.5-5.1); SODIUM LEVEL 139 MMOL/L (136-145); TOTAL PROTEIN 6.6 G/DL (5.7-8.2)
[2023-08-03 08:11] LABS: CARBAMAZEPINE (TEGRETOL) LEVEL 4.6 ug/mL (4.0-12.0)
== END ==
LOC: M WUC 08:37
PROVIDERS: ATTEND Psychiatry & Neurology Neurology
DX: R56.9 Unspecified convulsions (principal); Z79.899 Other long term (current) drug therapy

== ENCOUNTER 2023-08-31 13:34 | Emergency (ER) | payer MEDICARE, MEDICAID ==
[~2023-08-31] VITALS: Ht 154.9 cm; Wt 75.0 kg
[2023-08-31] MEDS ORDERED: LORazepam 2 MG/ML 1ML VIAL IV PRN (14:00)
[2023-08-31 14:22] LABS: BASO % 0.5 % (0.0-1.0); EOS # 0.1 10^3/uL (0.0-0.5); HEMATOCRIT 37.6 % (36.0-47.0); HEMOGLOBIN 12.6 g/dl (12.0-15.5); LYMPH # 2.5 10^3/uL (1.5-5.0); LYMPH % 38.8 % (24.0-44.0); MEAN CORPUSCULAR HEMOGLOBIN 31.4 pg (27.0-33.0); MEAN CORPUSCULAR HGB CONC 33.5 g/dl (32.0-36.5); MEAN CORPUSCULAR VOLUME 93.8 fl (80.0-96.0); MONO # 0.7 10^3/uL (0.0-0.8); MONO % 10.2 % (2.0-8.0); NEUTROPHILS # 3.1 10^3/uL (1.5-8.5); NEUTROPHILS % 47.9 % (36.0-66.0); PLATELET COUNT, AUTOMATED 157 10^3/uL (150-450); RED BLOOD COUNT 4.01 10^6/uL (4.00-5.40); WHITE BLOOD COUNT 6.5 10^3/uL (4.0-10.0)
[2023-08-31 14:48] LABS: ALBUMIN 3.3 G/DL (3.2-5.2); ALKALINE PHOSPHATASE 104 U/L (46-116); ALT/SGPT 18 U/L (7.0-40); AST/SGOT 17 U/L (<34); BILIRUBIN,DIRECT 0.1 MG/DL (<0.4); BILIRUBIN,TOTAL 0.3 MG/DL (0.3-1.2); BLOOD UREA NITROGEN 21 MG/DL (9-23); CALCIUM LEVEL 8.7 MG/DL (8.3-10.6); CARBON DIOXIDE LEVEL 25 MMOL/L (20-31); CHLORIDE LEVEL 105 MMOL/L (98-107); CREATININE FOR GFR 0.92 MG/DL (0.55-1.30); GLOMERULAR FILTRATION RATE > 60.0 (>39); GLUCOSE, FASTING 81 MG/DL (74-106); POTASSIUM SERUM 4.5 MMOL/L (3.5-5.1); SODIUM LEVEL 137 MMOL/L (136-145); TOTAL PROTEIN 6.5 G/DL (5.7-8.2)
[2023-08-31 16:12] VITALS: BP 136/62; TEMP 97.1; O2SAT 97
== END 2023-08-31 16:33 | disposition home or self-care (01) ==
LOC: EDBD 13:34 → M ED 13:34
DX: G40.89 Other seizures (principal); F32.9 Major depressive disorder, single episode, unspecified; I10 Essential (primary) hypertension; J45.909 Unspecified asthma, uncomplicated; Z86.79 Personal history of other diseases of the circulatory system; Z79.52 Long term (current) use of systemic steroids; Z79.810 Long term (current) use of selective estrogen receptor modulators (SERMs); Z79.811 Long term (current) use of aromatase inhibitors; Z79.899 Other long term (current) drug therapy

== ENCOUNTER → 2023-09-28 | Outpatient (REF) | payer MEDICARE, MEDICAID ==
[2023-09-28 17:01] LABS: APPEARANCE, URINE HAZY (CLEAR); BACTERIA, URINE AUTO 3+ (NEGATIVE); BILIRUBIN, URINE AUTO NEGATIVE (NEGATIVE); BLOOD, URINE BLOOD NEGATIVE (NEGATIVE); COLOR, URINE YELLOW (YELLOW); GLUCOSE, URINE (UA) AUTO NEGATIVE (NEGATIVE); KETONE, URINE AUTO NEGATIVE (NEGATIVE); LEUKOCYTE ESTERASE, URINE AUTO 1+ (NEGATIVE); MUCUS, URINE SMALL (NEGATIVE); NITRITE, URINE AUTO NEGATIVE (NEGATIVE); PROTEIN, URINE AUTO NEGATIVE (NEGATIVE); RBC, URINE AUTO 3 /HPF (0-3); SPECIFIC GRAVITY URINE AUTO 1.012 (1.002-1.035); SQUAMOUS EPITHELIAL CELL UR AU 4 /HPF (0-6); UROBILINOGEN, URINE AUTO 0.2 mg/dL (0.0-2.0); WBC, URINE AUTO 22 /HPF (0-3)
== END ==
LOC: M SFHCADAM 16:27
PROVIDERS: ATTEND Family Medicine
DX: R35.0 Frequency of micturition (principal)

== ENCOUNTER → 2023-10-21 | Outpatient (CLI) | payer MEDICARE, MEDICAID ==
[2023-10-21 12:44] LABS: BASO % 0.5 % (0.0-1.0); EOS # 0.2 10^3/uL (0.0-0.5); EOS % 3.1 % (0.0-3.0); HEMATOCRIT 35.3 % (36.0-47.0); HEMOGLOBIN 11.6 g/dl (12.0-15.5); LYMPH # 1.6 10^3/uL (1.5-5.0); LYMPH % 27.2 % (24.0-44.0); MEAN CORPUSCULAR HEMOGLOBIN 30.7 pg (27.0-33.0); MEAN CORPUSCULAR HGB CONC 32.9 g/dl (32.0-36.5); MEAN CORPUSCULAR VOLUME 93.4 fl (80.0-96.0); MONO # 0.7 10^3/uL (0.0-0.8); MONO % 11.8 % (2.0-8.0); NEUTROPHILS # 3.3 10^3/uL (1.5-8.5); NEUTROPHILS % 56.9 % (36.0-66.0); PLATELET COUNT, AUTOMATED 146 10^3/uL (150-450); RED BLOOD COUNT 3.78 10^6/uL (4.00-5.40); WHITE BLOOD COUNT 5.9 10^3/uL (4.0-10.0)
== END ==
LOC: M WUC 10:54
PROVIDERS: ATTEND Physician Assistant
DX: L04.0 Acute lymphadenitis of face, head and neck (principal)

== ENCOUNTER → 2023-12-28 | Outpatient (CLI) | payer MEDICARE, MEDICAID ==
[2023-12-28 13:43] LABS: ALBUMIN 3.4 G/DL (3.2-5.2); ALKALINE PHOSPHATASE 134 U/L (46-116); ALT/SGPT 21 U/L (7.0-40); AST/SGOT 15 U/L (<34); BILIRUBIN,TOTAL 0.3 MG/DL (0.3-1.2); BLOOD UREA NITROGEN 16 MG/DL (9-23); CALCIUM LEVEL 8.2 MG/DL (8.3-10.6); CARBON DIOXIDE LEVEL 28 MMOL/L (20-31); CHLORIDE LEVEL 107 MMOL/L (98-107); CHOLESTEROL LEVEL 115 MG/DL (<200); CHOLESTEROL RISK RATIO 2.34 (<5); CREATININE FOR GFR 0.93 MG/DL (0.55-1.30); GLOMERULAR FILTRATION RATE > 60.0 (>39); GLUCOSE, FASTING 93 MG/DL (74-106); HDL CHOLESTEROL 49.1 MG/DL (>40); IRON (FE) 99 UG/DL (50-170); LDL CHOLESTEROL 51.3 MG/DL (<100); NON-HDL-C 65.9 MG/DL; PERCENT SATURATION 39.1 % (13.2-45.0); POTASSIUM SERUM 4.8 MMOL/L (3.5-5.1); SODIUM LEVEL 137 MMOL/L (136-145); TOTAL IRON BINDING CAPACITY 253 UG/DL (250-425); TOTAL PROTEIN 6.5 G/DL (5.7-8.2); TRIGLYCERIDES LEVEL 73 MG/DL (<150)
[2023-12-28 13:45] LABS: FERRITIN 67.4 NG/ML (7.3-270.7); FREE T4 0.71 NG/DL (0.89-1.76); TOTAL 25(OH) VITAMIN D 53.4 NG/ML (20.0-100.0)
[2023-12-28 13:46] LABS: HEMATOCRIT 38.4 % (36.0-47.0); HEMOGLOBIN 12.6 g/dl (12.0-15.5); MEAN CORPUSCULAR HEMOGLOBIN 30.4 pg (27.0-33.0); MEAN CORPUSCULAR HGB CONC 32.8 g/dl (32.0-36.5); MEAN CORPUSCULAR VOLUME 92.8 fl (80.0-96.0); PLATELET COUNT, AUTOMATED 163 10^3/uL (150-450); RED BLOOD COUNT 4.14 10^6/uL (4.00-5.40); WHITE BLOOD COUNT 6.4 10^3/uL (4.0-10.0)
== END ==
LOC: M WUC 09:28
PROVIDERS: ATTEND Family Medicine
DX: M81.0 Age-related osteoporosis without current pathological fracture (principal); E78.5 Hyperlipidemia, unspecified; D50.0 Iron deficiency anemia secondary to blood loss (chronic); I25.10 Atherosclerotic heart disease of native coronary artery without angina pectoris

== ENCOUNTER → 2024-04-20 | Outpatient (REF) | payer MEDICARE, MEDICAID ==
[2024-04-20 16:54] LABS: APPEARANCE, URINE CLOUDY (CLEAR); BACTERIA, URINE AUTO 1+ (NEGATIVE); BILIRUBIN, URINE AUTO NEGATIVE (NEGATIVE); BLOOD, URINE BLOOD 1+ (NEGATIVE); COLOR, URINE YELLOW (YELLOW); GLUCOSE, URINE (UA) AUTO NEGATIVE (NEGATIVE); KETONE, URINE AUTO NEGATIVE (NEGATIVE); LEUKOCYTE ESTERASE, URINE AUTO 3+ (NEGATIVE); NITRITE, URINE AUTO POSITIVE (NEGATIVE); PROTEIN, URINE AUTO NEGATIVE (NEGATIVE); RBC, URINE AUTO 1 /HPF (0-3); SPECIFIC GRAVITY URINE AUTO 1.008 (1.002-1.035); SQUAMOUS EPITHELIAL CELL UR AU 2 /HPF (0-6); UROBILINOGEN, URINE AUTO 0.2 mg/dL (0.0-2.0); WBC, URINE AUTO 90 /HPF (0-3)
== END ==
LOC: M SFHCADAM 16:17
PROVIDERS: ATTEND Family Medicine
DX: R39.9 Unspecified symptoms and signs involving the genitourinary system (principal)

== ENCOUNTER → 2024-05-08 | Outpatient (CLI) | payer MEDICARE, MEDICAID ==
[2024-05-08 17:58] LABS: BLOOD UREA NITROGEN 18 MG/DL (9-23); CREATININE FOR GFR 0.82 MG/DL (0.55-1.30); GLOMERULAR FILTRATION RATE > 60.0 (>39)
== END ==
LOC: M WUC 13:07
PROVIDERS: ATTEND Psychiatry & Neurology Neurology
DX: I10 Essential (primary) hypertension (principal)

== ENCOUNTER → 2024-06-19 | Outpatient (CLI) | payer MEDICARE, MEDICAID ==
[2024-06-19 13:58] LABS: BASO % 0.4 % (0.0-1.0); EOS # 0.1 10^3/uL (0.0-0.5); EOS % 2.2 % (0.0-3.0); HEMOGLOBIN 13.2 g/dl (12.0-15.5); LYMPH # 1.8 10^3/uL (1.5-5.0); LYMPH % 32.5 % (24.0-44.0); MEAN CORPUSCULAR HEMOGLOBIN 29.7 pg (27.0-33.0); MEAN CORPUSCULAR HGB CONC 32.2 g/dl (32.0-36.5); MEAN CORPUSCULAR VOLUME 92.3 fl (80.0-96.0); MONO # 0.6 10^3/uL (0.0-0.8); MONO % 10.1 % (2.0-8.0); NEUTROPHILS % 54.4 % (36.0-66.0); PLATELET COUNT, AUTOMATED 182 10^3/uL (150-450); RED BLOOD COUNT 4.44 10^6/uL (4.00-5.40); WHITE BLOOD COUNT 5.5 10^3/uL (4.0-10.0)
[2024-06-19 14:25] LABS: ALBUMIN 3.7 G/DL (3.2-5.2); ALKALINE PHOSPHATASE 143 U/L (46-116); ALT/SGPT 22 U/L (7.0-40); AST/SGOT 18 U/L (<34); BILIRUBIN,TOTAL 0.3 MG/DL (0.3-1.2); BLOOD UREA NITROGEN 24 MG/DL (9-23); CALCIUM LEVEL 8.9 MG/DL (8.3-10.6); CARBON DIOXIDE LEVEL 28 MMOL/L (20-31); CHLORIDE LEVEL 106 MMOL/L (98-107); CREATININE FOR GFR 0.93 MG/DL (0.55-1.30); GLOMERULAR FILTRATION RATE > 60.0 (>39); GLUCOSE, FASTING 87 MG/DL (74-106); POTASSIUM SERUM 4.5 MMOL/L (3.5-5.1); SODIUM LEVEL 135 MMOL/L (136-145); TOTAL PROTEIN 7.3 G/DL (5.7-8.2)
[2024-06-20 10:42] LABS: CARBAMAZEPINE (TEGRETOL) SO 4.8 mg/L (4.0-12.0)
== END ==
LOC: M PLALAB 09:04
PROVIDERS: ATTEND Psychiatry & Neurology Neurology
DX: R56.9 Unspecified convulsions (principal); Z79.899 Other long term (current) drug therapy

== ENCOUNTER → 2024-08-23 | Outpatient (REF) | payer MEDICARE, MEDICAID ==
[2024-08-23 18:32] LABS: HEMATOCRIT 38.1 % (36.0-47.0); HEMOGLOBIN 12.4 g/dl (12.0-15.5); MEAN CORPUSCULAR HEMOGLOBIN 29.7 pg (27.0-33.0); MEAN CORPUSCULAR HGB CONC 32.5 g/dl (32.0-36.5); MEAN CORPUSCULAR VOLUME 91.1 fl (80.0-96.0); PLATELET COUNT, AUTOMATED 173 10^3/uL (150-450); RED BLOOD COUNT 4.18 10^6/uL (4.00-5.40); WHITE BLOOD COUNT 7.1 10^3/uL (4.0-10.0)
[2024-08-23 18:42] LABS: ALBUMIN 3.3 G/DL (3.2-5.2); ALKALINE PHOSPHATASE 171 U/L (35-104); ALT/SGPT 18 U/L (7.0-40); AST/SGOT 17 U/L (<34); BILIRUBIN,TOTAL 0.2 MG/DL (0.3-1.2); BLOOD UREA NITROGEN 26 MG/DL (9-23); CALCIUM LEVEL 9.2 MG/DL (8.3-10.6); CARBON DIOXIDE LEVEL 27 MMOL/L (20-31); CHLORIDE LEVEL 102 MMOL/L (98-107); CHOLESTEROL LEVEL 142 MG/DL (<200); CREATININE FOR GFR 0.86 MG/DL (0.55-1.30); GLOMERULAR FILTRATION RATE > 60.0 (>39); GLUCOSE, FASTING 103 MG/DL (74-106); HDL CHOLESTEROL 61.7 MG/DL (>40); LDL CHOLESTEROL 55.1 MG/DL (<100); NON-HDL-C 80.3 MG/DL; POTASSIUM SERUM 4.9 MMOL/L (3.5-5.1); SODIUM LEVEL 134 MMOL/L (136-145); TOTAL PROTEIN 7.2 G/DL (5.7-8.2); TRIGLYCERIDES LEVEL 126 MG/DL (<150)
[2024-08-23 18:44] LABS: FREE T4 0.87 NG/DL (0.89-1.76); THYROID STIMULATING HORMONE 2.513 uIU/ML (0.55-4.78)
[2024-08-23 18:53] LABS: HEMOGLOBIN A1c 5.4 % (4.0-6.0)
== END ==
LOC: M SFHCADAM 14:36
PROVIDERS: ATTEND Family Medicine
DX: I73.9 Peripheral vascular disease, unspecified (principal); D50.0 Iron deficiency anemia secondary to blood loss (chronic); G40.901 Epilepsy, unspecified, not intractable, with status epilepticus; E78.5 Hyperlipidemia, unspecified; G63 Polyneuropathy in diseases classified elsewhere; Z79.899 Other long term (current) drug therapy

== ENCOUNTER → 2024-09-12 | Outpatient (REF) | payer MEDICARE, MEDICAID ==
[~2024-09-12] MED LIST changes: +CARB15DR64 OU; -LUBR0.5D OU
[2024-09-12 17:42] LABS: APPEARANCE, URINE CLOUDY (CLEAR); BACTERIA, URINE AUTO 1+ (NEGATIVE); BILIRUBIN, URINE AUTO NEGATIVE (NEGATIVE); BLOOD, URINE BLOOD NEGATIVE (NEGATIVE); COLOR, URINE YELLOW (YELLOW); GLUCOSE, URINE (UA) AUTO NEGATIVE (NEGATIVE); KETONE, URINE AUTO NEGATIVE (NEGATIVE); LEUKOCYTE ESTERASE, URINE AUTO 3+ (NEGATIVE); NITRITE, URINE AUTO POSITIVE (NEGATIVE); PROTEIN, URINE AUTO NEGATIVE (NEGATIVE); RBC, URINE AUTO 0 /HPF (0-3); SQUAMOUS EPITHELIAL CELL UR AU 6 /HPF (0-6); TRANSITIONAL EPITHELIAL AUTO <1 /HPF; UROBILINOGEN, URINE AUTO 0.2 mg/dL (0.0-2.0); WBC, URINE AUTO 53 /HPF (0-3)
== END ==
LOC: M SFHCADAM 16:49
PROVIDERS: ATTEND Family Medicine
DX: R32 Unspecified urinary incontinence (principal)

== ENCOUNTER 2024-10-09 11:18 | Day surgery (SDC) | payer MEDICARE, MEDICAID ==
[~2024-10-09] VITALS: Ht 154.9 cm; Wt 73.8 kg
[~2024-10-09 11:18] MED LIST changes: +ARTIDRO OP; +NITR100C2 PO; +SUCR1TAB56 PO; +THERTAB52 PO; +TOPI200T7 PO; +XELP0.00
[2024-10-09] MEDS ORDERED: propofoL 200 MG/20 ML VIAL As Ordered ONE (13:05)
[2024-10-09] MEDS ORDERED: LIDOCAINE 2% 100MG/5ML SDV (FOR ANES.) As Ordered ONE (13:05)
[2024-10-09 13:42] VITALS: TEMP 97.5
[2024-10-09] MEDS ORDERED: ONDANSETRON 4MG 2ML VIAL As Ordered ONE (13:52)
[2024-10-09 13:56] VITALS: BP 171/74; O2SAT 96
== END 2024-10-09 14:06 | disposition home or self-care (01) ==
LOC: M OPP 11:18
PROVIDERS: ATTEND Internal Medicine Gastroenterology
DX: K22.70 Barrett's esophagus without dysplasia (principal); K31.A19 Gastric intestinal metaplasia without dysplasia, unspecified site; K44.9 Diaphragmatic hernia without obstruction or gangrene; I25.10 Atherosclerotic heart disease of native coronary artery without angina pectoris; I25.2 Old myocardial infarction; I11.0 Hypertensive heart disease with heart failure; E78.5 Hyperlipidemia, unspecified; R12 Heartburn; D64.9 Anemia, unspecified; M19.90 Unspecified osteoarthritis, unspecified site; F41.9 Anxiety disorder, unspecified; F32.A Depression, unspecified; M81.0 Age-related osteoporosis without current pathological fracture; F60.3 Borderline personality disorder; G40.909 Epilepsy, unspecified, not intractable, without status epilepticus; J45.909 Unspecified asthma, uncomplicated; I50.9 Heart failure, unspecified; Z79.82 Long term (current) use of aspirin; Z79.899 Other long term (current) drug therapy

== ENCOUNTER → 2024-10-19 | Outpatient (CLI) | payer MEDICARE, MEDICAID | LOC: M PLARAD 10:51 | PROVIDERS: ATTEND Psychiatry & Neurology Neurology | DX: G40.009 Localization-related (focal) (partial) idiopathic epilepsy and epileptic syndromes with seizures of localized onset, not intractable, without status epilepticus (principal); G31.84 Mild cognitive impairment of uncertain or unknown etiology ==

== ENCOUNTER 2024-12-09 08:52 | Inpatient (IN) | payer MEDICARE, MEDICAID ==
[~2024-12-09] VITALS: Ht 165.1 cm; Wt 72.5 kg
[2024-12-09] VITALS (10 sets, daily range): BP systolic 111–169; BP diastolic 55–72; TEMP 97.3–98.6; O2SAT 93–100
[2024-12-09] MEDS ORDERED: ISOVUE-370 76% 100ML VIAL As Ordered ONE (09:13)
[2024-12-09 09:45] LABS: BASO % 0.2 % (0.0-1.0); HEMATOCRIT 39.3 % (36.0-47.0); HEMOGLOBIN 12.7 g/dl (12.0-15.5); LYMPH # 1.2 10^3/uL (1.5-5.0); LYMPH % 7.6 % (24.0-44.0); MEAN CORPUSCULAR HEMOGLOBIN 29.3 pg (27.0-33.0); MEAN CORPUSCULAR HGB CONC 32.3 g/dl (32.0-36.5); MEAN CORPUSCULAR VOLUME 90.6 fl (80.0-96.0); MONO # 1.2 10^3/uL (0.0-0.8); MONO % 7.7 % (2.0-8.0); NEUTROPHILS # 12.8 10^3/uL (1.5-8.5); NEUTROPHILS % 83.8 % (36.0-66.0); PLATELET COUNT, AUTOMATED 196 10^3/uL (150-450); RED BLOOD COUNT 4.34 10^6/uL (4.00-5.40); WHITE BLOOD COUNT 15.3 10^3/uL (4.0-10.0)
[2024-12-09 09:57] LABS: INR 1.1; PARTIAL THROMBOPLASTIN TIME 30.7 SECONDS (24.8-34.2); PROTHROMBIN TIME 14.5 SECONDS (12.5-14.5)
[2024-12-09 09:58] LABS: VENOUS BASE EXCESS -4.9 (-2.0-2.0); VENOUS HCO3 23.9 MMOL/L (23.0-27.0); VENOUS O2 SATURATION 72.3 % (60.0-80.0); VENOUS PARTIAL PRESSURE O2 43.6 mmHg (30.0-50.0); VENOUS PH 7.204 UNITS (7.330-7.430); VENOUS STANDARD HCO3 19.9 MMOL/L; VENOUS TOTAL CO2 25.8 MMOL/L (24.0-28.0)
[2024-12-09 10:05] LABS: CK-MB VALUE MASS 4.9 NG/ML (<3.6)
[2024-12-09 10:07] LABS: CPK CREATINE PHOSPHOKINASE 123 U/L (34-145); MB/CK RELATIVE INDEX 3.98 (< OR =4)
[2024-12-09 10:08] LABS: ALBUMIN 3.4 G/DL (3.2-5.2); ALKALINE PHOSPHATASE 126 U/L (35-104); ALT/SGPT 27 U/L (7.0-40); AST/SGOT 30 U/L (<34); BILIRUBIN,DIRECT 0.2 MG/DL (<0.4); BILIRUBIN,TOTAL 0.4 MG/DL (0.3-1.2); BLOOD UREA NITROGEN 25 MG/DL (9-23); CALCIUM LEVEL 8.8 MG/DL (8.3-10.6); CARBON DIOXIDE LEVEL 26 MMOL/L (20-31); CHLORIDE LEVEL 107 MMOL/L (98-107); CREATININE FOR GFR 0.96 MG/DL (0.55-1.30); GLOMERULAR FILTRATION RATE > 60.0 (>39); GLUCOSE, FASTING 114 MG/DL (74-106); POTASSIUM SERUM 4.4 MMOL/L (3.5-5.1); SODIUM LEVEL 141 MMOL/L (136-145); TOTAL PROTEIN 7.7 G/DL (5.7-8.2)
[2024-12-09 10:10] LABS: THYROID STIMULATING HORMONE 1.202 uIU/ML (0.55-4.78); THYROXINE (T4) 3.9 UG/DL (4.5-10.9)
[2024-12-09 10:14] LABS: PROCALCITONIN 0.12 ng/ml
[2024-12-09] MEDS: ALBUTEROL SULFATE 2.5MG/0.5ML INH NEB SOLN INH ONE (10:15)
[2024-12-09] MEDS: IPRATROPIUM 0.5MG/ALBUTEROL 2.5MG INH SOL UD 3ML (DUONEB) NEB ONE (10:15)
[2024-12-09 11:00] LABS: CK-MB VALUE MASS 5.9 NG/ML (<3.6)
[2024-12-09 11:02] LABS: MB/CK RELATIVE INDEX 4.83 (< OR =4)
[2024-12-09] MEDS ORDERED: IBUP200C25 PO (11:07)
[2024-12-09] MEDS ORDERED: ERYT5OIN25 OD (11:07)
[2024-12-09] MEDS ORDERED: MONT10TA97 PO (11:07)
[2024-12-09] MEDS ORDERED: MED REC COMMENT (11:07)
[2024-12-09] MEDS ORDERED: HOME MED LIST COMPLETE! XX SCH (11:10)
[2024-12-09] MEDS: methylPREDNISolone 125MG 2ML VIAL IV ONE (11:16)
[2024-12-09] MEDS: cefTRIAXone SOD 2 GM in DEXTROSE 5% (D5W) ADV/MINI-BAG 50 ML IV ONE (11:16)
[2024-12-09] MEDS: NS (Normal Saline) 0.9% 1,000 ML IV ONE (11:20)
[2024-12-09] MEDS: DOXYCYCLINE HYCLATE 100 MG in DEXTROSE 5% (D5W) MINI-BAG PLU 100 ML IV ONE (11:29)
[2024-12-09 11:37] LABS: ABG BASE EXCESS -5.5 (-2.0-2.0); ABG HCO3 22.8 MMOL/L (22.0-26.0); ABG O2 SATURATION 98.4 % (95.0-99.0); ABG PARTIAL PRESSURE CO2 57.5 mmHg (35.0-45.0); ABG PARTIAL PRESSURE O2 145.8 mmHg (75.0-100.0); ABG TOTAL CO2 24.6 MMOL/L (23.0-31.0)
[2024-12-09 11:39] LABS: ABG pH (ARTERIAL) 7.216 UNITS (7.350-7.450)
[2024-12-09] MEDS ORDERED: MIRALAX *UNIT DOSE* 17GM PACKET PO PRN (13:10)
[2024-12-09] MEDS ORDERED: ACETAMINOPHEN 325 MG TAB PO PRN (13:10)
[2024-12-09] MEDS ORDERED: IBUPROFEN 200MG TAB PO PRN (13:10)
[2024-12-09] MEDS: POTASSIUM CHLORIDE 10MEQ SR TABLET PO SCH (13:57)
[2024-12-09] MEDS: ASPIRIN 81MG CHEW TABLET PO SCH (13:57)
[2024-12-09] MEDS: ALPRAZolam 0.25 MG TAB PO PRN (13:58)
[2024-12-09] MEDS: bisoproloL fumarate 5 MG TAB PO SCH (13:58)
[2024-12-09] MEDS: PANTOPRAZOLE 40MG VIAL IV SCH (13:59)
[2024-12-09 15:04] LABS: VENOUS BASE EXCESS -5.8 (-2.0-2.0); VENOUS O2 SATURATION 94.4 % (60.0-80.0); VENOUS PARTIAL PRESSURE CO2 53.2 mmHg (38.0-50.0); VENOUS PARTIAL PRESSURE O2 81.8 mmHg (30.0-50.0); VENOUS PH 7.235 UNITS (7.330-7.430); VENOUS STANDARD HCO3 19.7 MMOL/L; VENOUS TOTAL CO2 23.7 MMOL/L (24.0-28.0)
[2024-12-09] MEDS: ALBUTEROL SULFATE 2.5MG/0.5ML INH NEB SOLN NEB SCH (15:13)
[2024-12-09] MEDS: ATORVASTATIN 20 MG TAB PO SCH (17:25)
[2024-12-09] MEDS: MONTELUKAST 10 MG TAB PO SCH (17:25)
[2024-12-09] MEDS: SUCRALFATE 1 GM TAB PO SCH (20:59)
[2024-12-09] MEDS: SERTRALINE 100 MG TAB PO SCH (20:59)
[2024-12-09] MEDS: DOCUSATE SODIUM 100MG CAPSULE PO SCH (20:59)
[2024-12-09] MEDS: ENOXAPARIN 40MG/0.4ML SYRINGE (J1650 PER 10MG) SC SCH (21:00)
[2024-12-09] MEDS: DOXYCYCLINE HYCLATE 100 MG in DEXTROSE 5% (D5W) MINI-BAG PLU 100 ML IV SCH (21:00)
[2024-12-09] MEDS: TOPIRAMATE (TopAMAX) 100 MG TAB PO SCH (21:32)
[2024-12-09] MEDS: LATANOPROST 0.005% OPHTH SOLN 2.5 ML OU SCH (21:32)
[2024-12-09] MEDS: carBAMazepine 200MG TABLET PO SCH (21:32)
[2024-12-09] MEDS: CLORAZEPATE 3.75MG TAB PO SCH (21:32)
[2024-12-10] VITALS (10 sets, daily range): BP systolic 120–160; BP diastolic 58–94; TEMP 97–98.4; O2SAT 95–99
[2024-12-10 05:13] LABS: BASO % 0.3 % (0.0-1.0); EOS % 0.1 % (0.0-3.0); HEMATOCRIT 35.5 % (36.0-47.0); HEMOGLOBIN 11.2 g/dl (12.0-15.5); LYMPH # 2.5 10^3/uL (1.5-5.0); LYMPH % 21.8 % (24.0-44.0); MEAN CORPUSCULAR HEMOGLOBIN 29.2 pg (27.0-33.0); MEAN CORPUSCULAR HGB CONC 31.5 g/dl (32.0-36.5); MEAN CORPUSCULAR VOLUME 92.4 fl (80.0-96.0); MONO # 1.3 10^3/uL (0.0-0.8); MONO % 10.9 % (2.0-8.0); NEUTROPHILS # 7.6 10^3/uL (1.5-8.5); NEUTROPHILS % 66.5 % (36.0-66.0); PLATELET COUNT, AUTOMATED 177 10^3/uL (150-450); RED BLOOD COUNT 3.84 10^6/uL (4.00-5.40); WHITE BLOOD COUNT 11.5 10^3/uL (4.0-10.0)
[2024-12-10 05:39] LABS: ALBUMIN 2.9 G/DL (3.2-5.2); ALKALINE PHOSPHATASE 100 U/L (35-104); ALT/SGPT 23 U/L (7.0-40); AST/SGOT 23 U/L (<34); BILIRUBIN,TOTAL 0.3 MG/DL (0.3-1.2); BLOOD UREA NITROGEN 27 MG/DL (9-23); CALCIUM LEVEL 8.4 MG/DL (8.3-10.6); CARBON DIOXIDE LEVEL 25 MMOL/L (20-31); CHLORIDE LEVEL 110 MMOL/L (98-107); CREATININE FOR GFR 0.87 MG/DL (0.55-1.30); GLOMERULAR FILTRATION RATE > 60.0 (>39); GLUCOSE, FASTING 89 MG/DL (74-106); POTASSIUM SERUM 4.6 MMOL/L (3.5-5.1); SODIUM LEVEL 143 MMOL/L (136-145); TOTAL PROTEIN 6.8 G/DL (5.7-8.2)
[2024-12-10] MEDS: methylPREDNISolone 125MG 2ML VIAL IV SCH (08:50)
[2024-12-10] MEDS: cefTRIAXone SOD 1 GM in DEXTROSE 5% (D5W) ADV/MINI-BAG 50 ML IV SCH (11:13)
[2024-12-10] MEDS ORDERED: IPRATROPIUM 0.5MG/ALBUTEROL 2.5MG INH SOL UD 3ML (DUONEB) NEB PRN (11:35)
[2024-12-10 13:09] LABS: VENOUS BASE EXCESS -7.6 (-2.0-2.0); VENOUS O2 SATURATION 85.2 % (60.0-80.0); VENOUS PARTIAL PRESSURE O2 57.2 mmHg (30.0-50.0); VENOUS PH 7.191 UNITS (7.330-7.430); VENOUS STANDARD HCO3 18.1 MMOL/L; VENOUS TOTAL CO2 22.7 MMOL/L (24.0-28.0)
[2024-12-11] VITALS (13 sets, daily range): BP systolic 128–155; BP diastolic 60–84; TEMP 97.4–98.5; O2SAT 90–100
[2024-12-11 09:17] LABS: HEMATOCRIT 36.8 % (36.0-47.0); HEMOGLOBIN 11.6 g/dl (12.0-15.5); MEAN CORPUSCULAR HEMOGLOBIN 29.7 pg (27.0-33.0); MEAN CORPUSCULAR HGB CONC 31.5 g/dl (32.0-36.5); MEAN CORPUSCULAR VOLUME 94.1 fl (80.0-96.0); PLATELET COUNT, AUTOMATED 167 10^3/uL (150-450); RED BLOOD COUNT 3.91 10^6/uL (4.00-5.40); WHITE BLOOD COUNT 10.4 10^3/uL (4.0-10.0)
[2024-12-11 09:45] LABS: BLOOD UREA NITROGEN 26 MG/DL (9-23); CALCIUM LEVEL 8.5 MG/DL (8.3-10.6); CARBON DIOXIDE LEVEL 27 MMOL/L (20-31); CHLORIDE LEVEL 108 MMOL/L (98-107); CREATININE FOR GFR 0.81 MG/DL (0.55-1.30); GLOMERULAR FILTRATION RATE > 60.0 (>39); GLUCOSE, FASTING 109 MG/DL (74-106); POTASSIUM SERUM 4.3 MMOL/L (3.5-5.1); SODIUM LEVEL 142 MMOL/L (136-145)
[2024-12-11 10:55] LABS: PROCALCITONIN 0.08 ng/ml
[2024-12-11] MEDS: CEFDINIR 300 MG CAP (OMNICEF) PO SCH (20:53)
[2024-12-11] MEDS: DOXYCYCLINE HYCLATE 100MG TABLET PO SCH (20:54)
[2024-12-11] MEDS: PANTOPRAZOLE 20 MG TAB PO SCH (20:54)
[2024-12-12] VITALS (17 sets, daily range): BP systolic 149–159; BP diastolic 65–69; TEMP 97.8–98.2; O2SAT 87–100
[2024-12-12] MEDS ORDERED: DOXY100T PO (10:09)
[2024-12-12] MEDS ORDERED: CEFD300CAP PO (10:09)
[2024-12-12] MEDS ORDERED: PRED20TA PO (10:09)
[2024-12-12] MEDS: predniSONE 20 MG TAB PO SCH (10:20)
== END 2024-12-12 16:04 | disposition home or self-care (01) | DRG 189 ==
LOC: EDBD 08:52 → M ED 08:52 → M ED INP 12:50 → M ICU 14:25 → M PCU 12-11 17:20
PROVIDERS: ADMIT Internal Medicine Pulmonary Disease; ATTEND Internal Medicine Pulmonary Disease
DX: J96.01 Acute respiratory failure with hypoxia (principal); J18.9 Pneumonia, unspecified organism; I24.89 Other forms of acute ischemic heart disease; I25.10 Atherosclerotic heart disease of native coronary artery without angina pectoris; J96.02 Acute respiratory failure with hypercapnia; J45.909 Unspecified asthma, uncomplicated; G40.901 Epilepsy, unspecified, not intractable, with status epilepticus; F32.A Depression, unspecified; G31.84 Mild cognitive impairment of uncertain or unknown etiology; M41.9 Scoliosis, unspecified; Z79.82 Long term (current) use of aspirin; Z79.2 Long term (current) use of antibiotics; Z79.899 Other long term (current) drug therapy

== ENCOUNTER → 2025-01-25 | Outpatient (CLI) | payer MEDICARE, MEDICAID ==
[~2025-01-25] MED LIST changes: -ARTIDRO OP; +ARTIDRO OU; +CEFD300CAP PO; +DOXY100T PO; +IBUP200C25 PO; +MED REC COMMENT; +MONT10TA97 PO; +MUCI600T31 PO; +SYNT50TA PO; +VENTAER INH; +XALA0.007 OU
[2025-01-25 13:23] LABS: FREE T4 0.97 NG/DL (0.89-1.76)
== END ==
LOC: M WUC 09:12
PROVIDERS: ATTEND Family Medicine
DX: E03.8 Other specified hypothyroidism (principal)

== ENCOUNTER 2025-01-28 01:43 | Inpatient (IN) | payer MEDICARE, MEDICAID ==
[~2025-01-28] VITALS: Ht 154.9 cm; Wt 73.0 kg
[~2025-01-28 01:43] MED LIST changes: -MUCI600T31 PO; -SYNT50TA PO; -VENTAER INH; -XALA0.007 OU
[2025-01-28 02:34] LABS: ABG BASE EXCESS -1.2 (-2.0-2.0); ABG HCO3 25.9 MMOL/L (22.0-26.0); ABG O2 SATURATION 97.8 % (95.0-99.0); ABG PARTIAL PRESSURE CO2 53.4 mmHg (35.0-45.0); ABG PARTIAL PRESSURE O2 118.3 mmHg (75.0-100.0); ABG STANDARD HCO3 23.5 MMOL/L. (22.0-26.0); ABG TOTAL CO2 27.5 MMOL/L (23.0-31.0); ABG pH (ARTERIAL) 7.303 UNITS (7.350-7.450)
[2025-01-28 02:50] LABS: BASO % 0.4 % (0.0-1.0); EOS # 0.1 10^3/uL (0.0-0.5); EOS % 1.7 % (0.0-3.0); HEMATOCRIT 39.5 % (36.0-47.0); HEMOGLOBIN 12.9 g/dl (12.0-15.5); LYMPH # 1.6 10^3/uL (1.5-5.0); LYMPH % 30.3 % (24.0-44.0); MEAN CORPUSCULAR HEMOGLOBIN 29.6 pg (27.0-33.0); MEAN CORPUSCULAR HGB CONC 32.7 g/dl (32.0-36.5); MEAN CORPUSCULAR VOLUME 90.6 fl (80.0-96.0); MONO # 0.6 10^3/uL (0.0-0.8); MONO % 10.9 % (2.0-8.0); PLATELET COUNT, AUTOMATED 172 10^3/uL (150-450); RED BLOOD COUNT 4.36 10^6/uL (4.00-5.40); WHITE BLOOD COUNT 5.3 10^3/uL (4.0-10.0)
[2025-01-28 03:03] LABS: CK-MB VALUE MASS 4.5 NG/ML (<3.6)
[2025-01-28 03:04] LABS: CPK CREATINE PHOSPHOKINASE 60 U/L (34-145)
[2025-01-28 03:05] LABS: ALBUMIN 3.4 G/DL (3.2-5.2); ALKALINE PHOSPHATASE 135 U/L (35-104); ALT/SGPT 24 U/L (7.0-40); AST/SGOT 26 U/L (<34); BILIRUBIN,DIRECT 0.1 MG/DL (<0.4); BILIRUBIN,TOTAL 0.3 MG/DL (0.3-1.2); BLOOD UREA NITROGEN 11 MG/DL (9-23); CALCIUM LEVEL 8.3 MG/DL (8.3-10.6); CARBON DIOXIDE LEVEL 28 MMOL/L (20-31); CHLORIDE LEVEL 105 MMOL/L (98-107); CREATININE FOR GFR 0.89 MG/DL (0.55-1.30); GLOMERULAR FILTRATION RATE > 60.0 (>39); GLUCOSE, FASTING 109 MG/DL (74-106); SODIUM LEVEL 140 MMOL/L (136-145); TOTAL PROTEIN 7.1 G/DL (5.7-8.2)
[2025-01-28] MEDS ORDERED: ISOVUE-370 76% 100ML VIAL As Ordered ONE (04:10)
[2025-01-28 04:46] LABS: CK-MB VALUE MASS 3.1 NG/ML (<3.6)
[2025-01-28 04:52] LABS: MB/CK RELATIVE INDEX 5.96 (< OR =4)
[2025-01-28 05:55] LABS: VENOUS BASE EXCESS -2.1 (-2.0-2.0); VENOUS HCO3 25.8 MMOL/L (23.0-27.0); VENOUS O2 SATURATION 71.9 % (60.0-80.0); VENOUS PARTIAL PRESSURE CO2 58.5 mmHg (38.0-50.0); VENOUS PARTIAL PRESSURE O2 41.6 mmHg (30.0-50.0); VENOUS PH 7.262 UNITS (7.330-7.430); VENOUS STANDARD HCO3 22.2 MMOL/L; VENOUS TOTAL CO2 27.6 MMOL/L (24.0-28.0)
[2025-01-28 06:51] LABS: CK-MB VALUE MASS 3.8 NG/ML (<3.6)
[2025-01-28 06:52] LABS: MB/CK RELATIVE INDEX 7.45 (< OR =4)
[2025-01-28] MEDS ORDERED: IPRATROPIUM 0.5MG/ALBUTEROL 2.5MG INH SOL UD 3ML NEB PRN (08:25)
[2025-01-28] MEDS: guaiFENesin ER TABLET 600 MG TAB PO SCH (10:24)
[2025-01-28] MEDS: methylPREDNISolone 125MG 2ML VIAL IV SCH (10:24)
[2025-01-28] MEDS: IPRATROPIUM 0.5MG/ALBUTEROL 2.5MG INH SOL UD 3ML NEB SCH (11:42)
[2025-01-28] MEDS: FORMOTEROL FUMARATE 20 MCG/2 ML INHALATION SOLUTION (PERFOROMIST) INH SCH (11:42)
[2025-01-28] MEDS: BUDESONIDE 0.5 MG/2 ML INHALATION SUSPENSION NEB SCH (11:42)
[2025-01-28 14:54] VITALS: BP 143/80; TEMP 98.5; O2SAT 100
[2025-01-28] MEDS ORDERED: VENTAER INH (15:12)
[2025-01-28] MEDS ORDERED: XALA0.007 OU (15:12)
[2025-01-28] MEDS ORDERED: ALPR0.25 PO (15:12)
[2025-01-28] MEDS ORDERED: SYNT50TA PO (15:12)
[2025-01-28] MEDS ORDERED: ALBUTEROL 90 MCG/ACT 8GM HFA INHALER INH PRN (15:15)
[2025-01-28] MEDS ORDERED: HOME MED LIST COMPLETE! XX SCH (15:15)
[2025-01-28] MEDS: ENOXAPARIN 40MG/0.4ML SYRINGE (J1650 PER 10MG) SC SCH (18:02)
[2025-01-28 20:01] VITALS: BP 137/65; TEMP 98.5; O2SAT 100
[2025-01-28] MEDS: carBAMazepine 200MG TABLET PO SCH (20:06)
[2025-01-28] MEDS: ACETAMINOPHEN 325 MG TAB PO PRN (20:06)
[2025-01-28] MEDS: PANTOPRAZOLE 20 MG TAB PO SCH (20:06)
[2025-01-28] MEDS: DOCUSATE SODIUM 100MG CAPSULE PO SCH (20:07)
[2025-01-28] MEDS: SUCRALFATE 1 GM TAB PO SCH (20:08)
[2025-01-28] MEDS: SERTRALINE 100 MG TAB PO SCH (20:08)
[2025-01-28] MEDS: ATORVASTATIN 20 MG TAB PO SCH (20:08)
[2025-01-28] MEDS: ALPRAZolam 0.25 MG TAB PO PRN (20:16)
[2025-01-28] MEDS: TOPIRAMATE (TopAMAX) 100 MG TAB PO SCH (20:17)
[2025-01-28] MEDS: ERYTHROMYCIN OPHTH OINT OD SCH (21:00)
[2025-01-28] MEDS: CLORAZEPATE 3.75MG TAB PO SCH (21:00)
[2025-01-28 23:57] VITALS: BP 110/53; TEMP 98.1; O2SAT 93
[2025-01-29 04:19] VITALS: BP 109/53; TEMP 98.2; O2SAT 95
[2025-01-29] MEDS: LEVOTHYROXINE 50MCG TABLET (0.05MG) PO SCH (05:21)
[2025-01-29 07:52] LABS: HEMATOCRIT 35.3 % (36.0-47.0); HEMOGLOBIN 11.3 g/dl (12.0-15.5); MEAN CORPUSCULAR HEMOGLOBIN 28.7 pg (27.0-33.0); MEAN CORPUSCULAR VOLUME 89.6 fl (80.0-96.0); PLATELET COUNT, AUTOMATED 163 10^3/uL (150-450); RED BLOOD COUNT 3.94 10^6/uL (4.00-5.40); WHITE BLOOD COUNT 6.8 10^3/uL (4.0-10.0)
[2025-01-29 07:58] VITALS: BP 150/63; TEMP 98; O2SAT 98
[2025-01-29 08:02] LABS: BLOOD UREA NITROGEN 18 MG/DL (9-23); CALCIUM LEVEL 8.5 MG/DL (8.3-10.6); CARBON DIOXIDE LEVEL 25 MMOL/L (20-31); CHLORIDE LEVEL 107 MMOL/L (98-107); CREATININE FOR GFR 0.93 MG/DL (0.55-1.30); GLOMERULAR FILTRATION RATE > 60.0 (>39); GLUCOSE, FASTING 118 MG/DL (74-106); MAGNESIUM LEVEL 2.2 MG/DL (1.8-2.4); POTASSIUM SERUM 4.7 MMOL/L (3.5-5.1); SODIUM LEVEL 139 MMOL/L (136-145)
[2025-01-29] MEDS: POTASSIUM CHLORIDE 10MEQ SR TABLET PO SCH (09:00)
[2025-01-29] MEDS: ALPRAZolam 0.25 MG TAB PO SCH (09:11)
[2025-01-29] MEDS: LATANOPROST 0.005% OPHTH SOLN 2.5 ML OU SCH (09:12)
[2025-01-29] MEDS: MONTELUKAST 10 MG TAB PO SCH (09:12)
[2025-01-29] MEDS: ASPIRIN 81MG CHEW TABLET PO SCH (09:12)
[2025-01-29 09:16] VITALS: BP 121/56
[2025-01-29] MEDS: bisoproloL fumarate 5 MG TAB PO SCH (09:16)
[2025-01-29 09:53] VITALS: O2SAT 95
[2025-01-29] MEDS ORDERED: MUCI600T31 PO ×2 (11:11→12:40)
[2025-01-29] MEDS ORDERED: PRED10TA2 PO (11:11)
[2025-01-29] MEDS ORDERED: IPRA0.00 INH (11:11)
[2025-01-29 11:59] VITALS: BP 127/60; TEMP 98.3; O2SAT 90
[2025-01-29 12:39] VITALS: O2SAT 94
[2025-01-30] MEDS ORDERED: MIRALAX *UNIT DOSE* 17GM PACKET PO PRN (09:00)
== END 2025-01-29 15:02 | disposition home or self-care (01) | DRG 202 ==
LOC: M ED 01:43 → M ED INP 08:42 → M PCU 14:43
PROVIDERS: ADMIT Internal Medicine; ATTEND Internal Medicine
DX: J45.901 Unspecified asthma with (acute) exacerbation (principal); I50.22 Chronic systolic (congestive) heart failure; F79 Unspecified intellectual disabilities; I25.10 Atherosclerotic heart disease of native coronary artery without angina pectoris; I25.2 Old myocardial infarction; G40.909 Epilepsy, unspecified, not intractable, without status epilepticus; M81.0 Age-related osteoporosis without current pathological fracture; E03.9 Hypothyroidism, unspecified; F32.A Depression, unspecified; B34.8 Other viral infections of unspecified site; H16.009 Unspecified corneal ulcer, unspecified eye; Z79.82 Long term (current) use of aspirin; Z79.890 Hormone replacement therapy; Z79.2 Long term (current) use of antibiotics; Z79.899 Other long term (current) drug therapy; K22.70 Barrett's esophagus without dysplasia

== ENCOUNTER → 2025-02-21 | Outpatient (REF) | payer MEDICARE, MEDICAID ==
[~2025-02-21] MED LIST changes: +MUCI600T31 PO; -NYST-13 TOP; +NYST0.1C TOP; +SYNT50TA PO; +TOPI-14 PO; -TOPI200T7 PO; +VENTAER INH; +XALA0.007 OU
== END ==
LOC: M SFHCADAM 16:41
PROVIDERS: ATTEND Physician Assistant
DX: R35.0 Frequency of micturition (principal)

== ENCOUNTER → 2025-03-04 | Outpatient (REF) | payer MEDICARE, MEDICAID | LOC: M SFHCADAM 14:29 | PROVIDERS: ATTEND Physician Assistant | DX: R32 Unspecified urinary incontinence (principal); R53.83 Other fatigue; E03.8 Other specified hypothyroidism ==

== ENCOUNTER → 2025-03-04 | Outpatient (CLI) | payer MEDICARE, MEDICAID ==
[2025-03-04 16:50] LABS: BASO % 0.4 % (0.0-1.0); EOS # 0.1 10^3/uL (0.0-0.5); EOS % 1.8 % (0.0-3.0); HEMATOCRIT 37.9 % (36.0-47.0); HEMOGLOBIN 11.9 g/dl (12.0-15.5); LYMPH # 1.8 10^3/uL (1.5-5.0); LYMPH % 26.2 % (24.0-44.0); MEAN CORPUSCULAR HEMOGLOBIN 28.6 pg (27.0-33.0); MEAN CORPUSCULAR HGB CONC 31.4 g/dl (32.0-36.5); MEAN CORPUSCULAR VOLUME 91.1 fl (80.0-96.0); MONO # 0.9 10^3/uL (0.0-0.8); MONO % 13.6 % (2.0-8.0); NEUTROPHILS # 3.9 10^3/uL (1.5-8.5); PLATELET COUNT, AUTOMATED 239 10^3/uL (150-450); RED BLOOD COUNT 4.16 10^6/uL (4.00-5.40); WHITE BLOOD COUNT 6.8 10^3/uL (4.0-10.0)
[2025-03-04 16:57] LABS: ERYTHROCYTE SEDIMENTATION RATE 40 mm/hr (0-30)
[2025-03-04 17:20] LABS: C REACTIVE PROTEIN QUANTITATIV 1.27 MG/DL (<1.0)
[2025-03-04 17:21] LABS: ALBUMIN 3.3 G/DL (3.2-5.2); BILIRUBIN,TOTAL 0.3 MG/DL (0.3-1.2); CALCIUM LEVEL 8.7 MG/DL (8.3-10.6); CREATININE FOR GFR 0.85 MG/DL (0.55-1.30); POTASSIUM SERUM 4.9 MMOL/L (3.5-5.1)
[2025-03-04 17:23] LABS: FREE T4 1.04 NG/DL (0.89-1.76)
[2025-03-04 17:26] LABS: FREE T3 2.7 PG/ML (2.3-4.2)
== END ==
LOC: M RAD 15:37
PROVIDERS: ATTEND Physician Assistant
DX: I51.7 Cardiomegaly (principal); I27.20 Pulmonary hypertension, unspecified; R32 Unspecified urinary incontinence; R53.83 Other fatigue; E03.8 Other specified hypothyroidism

== ENCOUNTER → 2025-03-05 | Outpatient (REF) | payer MEDICARE, MEDICAID ==
[2025-03-05 13:41] LABS: APPEARANCE, URINE HAZY (CLEAR); BACTERIA, URINE AUTO NEGATIVE (NEGATIVE); BILIRUBIN, URINE AUTO NEGATIVE (NEGATIVE); BLOOD, URINE BLOOD NEGATIVE (NEGATIVE); COLOR, URINE YELLOW (YELLOW); GLUCOSE, URINE (UA) AUTO NEGATIVE (NEGATIVE); KETONE, URINE AUTO NEGATIVE (NEGATIVE); LEUKOCYTE ESTERASE, URINE AUTO NEGATIVE (NEGATIVE); NITRITE, URINE AUTO NEGATIVE (NEGATIVE); PROTEIN, URINE AUTO NEGATIVE (NEGATIVE); RBC, URINE AUTO 1 /HPF (0-3); SPECIFIC GRAVITY URINE AUTO 1.011 (1.002-1.035); SQUAMOUS EPITHELIAL CELL UR AU 4 /HPF (0-6); TRANSITIONAL EPITHELIAL AUTO 1 /HPF; UROBILINOGEN, URINE AUTO 0.2 mg/dL (0.0-2.0); WBC, URINE AUTO 5 /HPF (0-3)
== END ==
LOC: M SFHCADAM 13:00
PROVIDERS: ATTEND Physician Assistant
DX: R53.83 Other fatigue (principal); R32 Unspecified urinary incontinence

== ENCOUNTER 2025-03-07 08:36 | Inpatient (IN) | payer MEDICARE, MEDICAID ==
[~2025-03-07] VITALS: Ht 160 cm; Wt 77.7 kg
[2025-03-07 09:39] LABS: VENOUS BASE EXCESS -2.3 (-2.0-2.0); VENOUS HCO3 26.1 MMOL/L (23.0-27.0); VENOUS O2 SATURATION 98.6 % (60.0-80.0); VENOUS PARTIAL PRESSURE CO2 62.8 mmHg (38.0-50.0); VENOUS PARTIAL PRESSURE O2 151.1 mmHg (30.0-50.0); VENOUS PH 7.237 UNITS (7.330-7.430); VENOUS STANDARD HCO3 22.5 MMOL/L; VENOUS TOTAL CO2 28.1 MMOL/L (24.0-28.0)
[2025-03-07] MEDS: IPRATROPIUM 0.5MG/ALBUTEROL 2.5MG INH SOL UD 3ML NEB PRN (09:44)
[2025-03-07] MEDS ORDERED: HOME MED LIST COMPLETE! XX SCH (09:45)
[2025-03-07 09:49] LABS: BASO % 0.4 % (0.0-1.0); EOS # 0.1 10^3/uL (0.0-0.5); EOS % 1.8 % (0.0-3.0); HEMATOCRIT 36.7 % (36.0-47.0); HEMOGLOBIN 11.5 g/dl (12.0-15.5); LYMPH # 1.2 10^3/uL (1.5-5.0); LYMPH % 21.9 % (24.0-44.0); MEAN CORPUSCULAR HEMOGLOBIN 28.2 pg (27.0-33.0); MEAN CORPUSCULAR HGB CONC 31.3 g/dl (32.0-36.5); MONO # 0.6 10^3/uL (0.0-0.8); MONO % 10.6 % (2.0-8.0); NEUTROPHILS # 3.6 10^3/uL (1.5-8.5); NEUTROPHILS % 64.4 % (36.0-66.0); PLATELET COUNT, AUTOMATED 239 10^3/uL (150-450); RED BLOOD COUNT 4.08 10^6/uL (4.00-5.40); WHITE BLOOD COUNT 5.6 10^3/uL (4.0-10.0)
[2025-03-07] MEDS: methylPREDNISolone 125MG 2ML VIAL IV ONE (09:49)
[2025-03-07 10:21] LABS: ABG BASE EXCESS -2.6 (-2.0-2.0); ABG HCO3 24.6 MMOL/L (22.0-26.0); ABG O2 SATURATION 98.1 % (95.0-99.0); ABG PARTIAL PRESSURE CO2 53.6 mmHg (35.0-45.0); ABG PARTIAL PRESSURE O2 122.6 mmHg (75.0-100.0); ABG STANDARD HCO3 22.3 MMOL/L. (22.0-26.0); ABG TOTAL CO2 26.3 MMOL/L (23.0-31.0)
[2025-03-07 10:29] LABS: ALBUMIN 3.2 G/DL (3.2-5.2); BILIRUBIN,DIRECT 0.1 MG/DL (<0.4); BILIRUBIN,TOTAL 0.3 MG/DL (0.3-1.2); CALCIUM LEVEL 8.6 MG/DL (8.3-10.6); CREATININE FOR GFR 0.82 MG/DL (0.55-1.30); GLOMERULAR FILTRATION RATE 74.1 (>39); POTASSIUM SERUM 4.9 MMOL/L (3.5-5.1); THYROID STIMULATING HORMONE 1.092 uIU/ML (0.55-4.78); TOTAL PROTEIN 6.6 G/DL (5.7-8.2)
[2025-03-07] MEDS ORDERED: ISOVUE-370 76% 100ML VIAL As Ordered ONE (11:17)
[2025-03-07 11:25] LABS: CK-MB VALUE MASS 4.1 NG/ML (<3.6)
[2025-03-07 11:38] LABS: MB/CK RELATIVE INDEX 7.06 (< OR =4)
[2025-03-07] MEDS: FUROSEMIDE 40MG/4ML VIAL IV ONE (15:17)
[2025-03-07 15:19] LABS: ABG BASE EXCESS -2.5 (-2.0-2.0); ABG HCO3 25.1 MMOL/L (22.0-26.0); ABG O2 SATURATION 94.7 % (95.0-99.0); ABG PARTIAL PRESSURE CO2 55.6 mmHg (35.0-45.0); ABG PARTIAL PRESSURE O2 81.8 mmHg (75.0-100.0); ABG STANDARD HCO3 22.4 MMOL/L. (22.0-26.0); ABG TOTAL CO2 26.8 MMOL/L (23.0-31.0); ABG pH (ARTERIAL) 7.272 UNITS (7.350-7.450)
[2025-03-07] MEDS ORDERED: ALBUTEROL SULFATE 2.5MG/0.5ML INH CONCENTRATE NEB SOLN NEB PRN (15:35)
[2025-03-07] MEDS: ASPIRIN 81MG ENTERIC TABLET PO SCH (16:09)
[2025-03-07] MEDS ORDERED: ALPRAZolam 0.25 MG TAB PO PRN (16:10)
[2025-03-07] MEDS: IPRATROPIUM 0.5MG/ALBUTEROL 2.5MG INH SOL UD 3ML NEB SCH (16:20)
[2025-03-07 16:57] LABS: INR 1.18; PROTHROMBIN TIME 15.3 SECONDS (12.5-14.5)
[2025-03-07] MEDS: methylPREDNISolone 125MG 2ML VIAL IV SCH (17:15)
[2025-03-07] MEDS: SUCRALFATE 1 GM TAB PO SCH (17:15)
[2025-03-07] MEDS: cefTRIAXone SOD 1 GM in DEXTROSE 5% (D5W) ADV/MINI-BAG 50 ML IV SCH (17:15)
[2025-03-07 20:50] LABS: KETONE, URINE AUTO RFX NEGATIVE (NEGATIVE); LEUKOCYTE ESTERASE UR AUTO RFX NEGATIVE (NEGATIVE); NITRITE, URINE AUTO RFX NEGATIVE (NEGATIVE); RBC, URINE AUTO RFX 0 /HPF (0-3); SQUAM EPITHELIAL CELL UR AURFX 0 /HPF (0-6); WBC, URINE AUTO RFX 0 /HPF (0-3)
[2025-03-07] MEDS: CLORAZEPATE 3.75MG TAB PO SCH (21:08)
[2025-03-07] MEDS: SERTRALINE 100 MG TAB PO SCH (21:08)
[2025-03-07] MEDS: carBAMazepine 200MG TABLET PO SCH (21:09)
[2025-03-07] MEDS: LATANOPROST 0.005% OPHTH SOLN 2.5 ML OU SCH (21:09)
[2025-03-08] VITALS (10 sets, daily range): BP systolic 104–163; BP diastolic 44–73; TEMP 97.9–98.2; O2SAT 91–99
[2025-03-08] MEDS: HEPARIN SOD 5000UNITS/ML 1ML VIAL/SYRINGE SC SCH (01:18)
[2025-03-08] MEDS: LEVOTHYROXINE 50MCG TABLET (0.05MG) PO SCH (05:10)
[2025-03-08 06:22] LABS: HEMATOCRIT 34.4 % (36.0-47.0); HEMOGLOBIN 11.1 g/dl (12.0-15.5); MEAN CORPUSCULAR HEMOGLOBIN 28.8 pg (27.0-33.0); MEAN CORPUSCULAR HGB CONC 32.3 g/dl (32.0-36.5); MEAN CORPUSCULAR VOLUME 89.1 fl (80.0-96.0); PLATELET COUNT, AUTOMATED 243 10^3/uL (150-450); RED BLOOD COUNT 3.86 10^6/uL (4.00-5.40)
[2025-03-08 06:46] LABS: BILIRUBIN,TOTAL 0.2 MG/DL (0.3-1.2); CALCIUM LEVEL 8.6 MG/DL (8.3-10.6); CREATININE FOR GFR 0.89 MG/DL (0.55-1.30); GLOMERULAR FILTRATION RATE 67.2 (>39); POTASSIUM SERUM 4.8 MMOL/L (3.5-5.1); TOTAL PROTEIN 6.2 G/DL (5.7-8.2)
[2025-03-08] MEDS: FUROSEMIDE 40MG/4ML VIAL IV SCH (08:02)
[2025-03-08] MEDS: bisoproloL fumarate 5 MG TAB PO SCH (08:02)
[2025-03-08] MEDS: POTASSIUM CHLORIDE 10MEQ SR TABLET PO SCH (08:02)
[2025-03-08] MEDS: methylPREDNISolone 125MG 2ML VIAL IV SCH (13:08)
[2025-03-08] MEDS: CEFDINIR 300 MG CAP PO SCH (20:43)
[2025-03-09] VITALS (7 sets, daily range): BP systolic 88–130; BP diastolic 48–66; TEMP 97.7–97.9; O2SAT 90–94
[2025-03-09 05:56] LABS: HEMATOCRIT 33.8 % (36.0-47.0); HEMOGLOBIN 10.7 g/dl (12.0-15.5); MEAN CORPUSCULAR HEMOGLOBIN 28.3 pg (27.0-33.0); MEAN CORPUSCULAR HGB CONC 31.7 g/dl (32.0-36.5); MEAN CORPUSCULAR VOLUME 89.4 fl (80.0-96.0); PLATELET COUNT, AUTOMATED 239 10^3/uL (150-450); RED BLOOD COUNT 3.78 10^6/uL (4.00-5.40); WHITE BLOOD COUNT 7.5 10^3/uL (4.0-10.0)
[2025-03-09 06:15] LABS: BILIRUBIN,TOTAL 0.3 MG/DL (0.3-1.2); CALCIUM LEVEL 8.4 MG/DL (8.3-10.6); CREATININE FOR GFR 0.99 MG/DL (0.55-1.30); GLOMERULAR FILTRATION RATE 59.1 (>39); POTASSIUM SERUM 4.7 MMOL/L (3.5-5.1); TOTAL PROTEIN 6.1 G/DL (5.7-8.2)
[2025-03-09] MEDS ORDERED: metOLazone 5 MG TAB PO ONE (08:15)
[2025-03-09 17:00] LABS: CK-MB VALUE MASS 1.5 NG/ML (<3.6); MB/CK RELATIVE INDEX 3.06 (< OR =4)
[2025-03-10] VITALS (7 sets, daily range): BP systolic 123–132; BP diastolic 49–56; TEMP 97.3–97.9; O2SAT 92–96
[2025-03-10 06:24] LABS: HEMATOCRIT 32.4 % (36.0-47.0); MEAN CORPUSCULAR HEMOGLOBIN 28.1 pg (27.0-33.0); MEAN CORPUSCULAR HGB CONC 30.9 g/dl (32.0-36.5); PLATELET COUNT, AUTOMATED 209 10^3/uL (150-450); RED BLOOD COUNT 3.56 10^6/uL (4.00-5.40); WHITE BLOOD COUNT 8.2 10^3/uL (4.0-10.0)
[2025-03-10 06:47] LABS: ALBUMIN 2.8 G/DL (3.2-5.2); BILIRUBIN,TOTAL 0.2 MG/DL (0.3-1.2); CREATININE FOR GFR 0.84 MG/DL (0.55-1.30); POTASSIUM SERUM 4.5 MMOL/L (3.5-5.1); TOTAL PROTEIN 5.7 G/DL (5.7-8.2)
[2025-03-10] MEDS: bisoproloL fumarate 5 MG TAB PO SCH (09:23)
[2025-03-10] MEDS: predniSONE 20 MG TAB PO SCH (09:23)
[2025-03-10] MEDS: FUROSEMIDE 40 MG TAB PO SCH (09:24)
[2025-03-11 06:05] VITALS: BP 124/58; TEMP 97.9; O2SAT 90
[2025-03-11 06:21] LABS: HEMATOCRIT 34.1 % (36.0-47.0); HEMOGLOBIN 10.4 g/dl (12.0-15.5); MEAN CORPUSCULAR HEMOGLOBIN 27.4 pg (27.0-33.0); MEAN CORPUSCULAR HGB CONC 30.5 g/dl (32.0-36.5); PLATELET COUNT, AUTOMATED 197 10^3/uL (150-450); RED BLOOD COUNT 3.79 10^6/uL (4.00-5.40); WHITE BLOOD COUNT 8.5 10^3/uL (4.0-10.0)
[2025-03-11] MEDS: ACETAMINOPHEN 325 MG TAB PO PRN (06:34)
[2025-03-11 06:47] LABS: BILIRUBIN,TOTAL 0.3 MG/DL (0.3-1.2); CALCIUM LEVEL 8.6 MG/DL (8.3-10.6); CREATININE FOR GFR 0.86 MG/DL (0.55-1.30); POTASSIUM SERUM 4.4 MMOL/L (3.5-5.1)
[2025-03-11 08:54] VITALS: BP 118/55
[2025-03-11 12:05] VITALS: BP 155/71; TEMP 97.7; O2SAT 92
[2025-03-11] MEDS ORDERED: CEFD300CAP PO (13:10)
== END 2025-03-11 16:20 | disposition home or self-care (01) | DRG 291 ==
LOC: EDBD 08:36 → M ED 08:36 → M ED INP 15:32 → M MSPAV 03-08 14:52
PROVIDERS: ADMIT Internal Medicine; ATTEND Internal Medicine
DX: I50.33 Acute on chronic diastolic (congestive) heart failure (principal); J96.01 Acute respiratory failure with hypoxia; J45.901 Unspecified asthma with (acute) exacerbation; N39.0 Urinary tract infection, site not specified; G40.909 Epilepsy, unspecified, not intractable, without status epilepticus; E03.8 Other specified hypothyroidism; I25.10 Atherosclerotic heart disease of native coronary artery without angina pectoris; M81.0 Age-related osteoporosis without current pathological fracture; M54.9 Dorsalgia, unspecified; K22.70 Barrett's esophagus without dysplasia; E87.6 Hypokalemia; F70 Mild intellectual disabilities; I95.2 Hypotension due to drugs; R91.1 Solitary pulmonary nodule; B96.20 Unspecified Escherichia coli [E. coli] as the cause of diseases classified elsewhere; I25.2 Old myocardial infarction; Z95.2 Presence of prosthetic heart valve; Z79.899 Other long term (current) drug therapy

== ENCOUNTER 2025-05-09 16:09 | Observation (INO) | payer MEDICARE, MEDICAID ==
[~2025-05-09] VITALS: Ht 160 cm; Wt 74.6 kg
[~2025-05-09 16:09] MED LIST changes: +ACET1TAB55 PO; +D3 S20002 PO; +DOCU100C16 PO; +ERYT5OIN25 OU; +VALS80TA PO
[2025-05-09 17:13] LABS: BASO # 0.0 10^3/uL (0.0-0.2); BASO % 0.5 % (0.0-1.0); EOS # 0.2 10^3/uL (0.0-0.5); EOS % 3.2 % (0.0-3.0); LYMPH # 1.4 10^3/uL (1.5-5.0); LYMPH % 23.4 % (24.0-44.0); MONO # 0.6 10^3/uL (0.0-0.8); MONO % 10.8 % (2.0-8.0); NEUTROPHILS # 3.6 10^3/uL (1.5-8.5); NEUTROPHILS % 61.1 % (36.0-66.0); PLATELET COUNT, AUTOMATED 202 10^3/uL (150-450)
[2025-05-09 17:28] LABS: CK-MB VALUE MASS 9.2 NG/ML (<3.6)
[2025-05-09 17:29] LABS: CPK CREATINE PHOSPHOKINASE 71.0 U/L (34-145); MB/CK RELATIVE INDEX 12.95 (< OR =4)
[2025-05-09 17:30] LABS: ALT/SGPT 20.0 U/L (7.0-40); AST/SGOT 22.0 U/L (<34); CALCIUM LEVEL 9.1 MG/DL (8.3-10.6); CARBON DIOXIDE LEVEL 30.0 MMOL/L (20-31); CHLORIDE LEVEL 98.0 MMOL/L (98-107); CREATININE FOR GFR 0.92 MG/DL (0.55-1.30); GLOMERULAR FILTRATION RATE 64.5 (>39); POTASSIUM SERUM 4.1 MMOL/L (3.5-5.1); SODIUM LEVEL 137.0 MMOL/L (136-145)
[2025-05-09 17:32] LABS: FREE T4 1.27 NG/DL (0.89-1.76); INR 1.1
[2025-05-09 18:49] LABS: CK-MB VALUE MASS 7.8 NG/ML (<3.6); CPK CREATINE PHOSPHOKINASE 76.0 U/L (34-145); MB/CK RELATIVE INDEX 10.26 (< OR =4)
[2025-05-09] MEDS ORDERED: SYNT75TA PO (21:37)
[2025-05-09] MEDS ORDERED: ALPR0.25 PO (21:37)
[2025-05-09] MEDS ORDERED: FURO20TA2 PO (21:37)
[2025-05-09] MEDS ORDERED: VALS1TAB67 PO (21:37)
[2025-05-09] MEDS ORDERED: ATOR40TA75 PO (21:37)
[2025-05-09] MEDS ORDERED: CARB10DR2 OU (21:37)
[2025-05-09] MEDS ORDERED: CARB15DR33 OU (21:37)
[2025-05-09] MEDS ORDERED: MULT-40 PO (21:37)
[2025-05-09] MEDS ORDERED: HOME MED LIST COMPLETE! XX SCH (21:40)
[2025-05-09] MEDS ORDERED: ACETAMINOPHEN 325 MG TAB PO PRN (22:15)
[2025-05-09] MEDS ORDERED: ALBUTEROL SULFATE 2.5 MG/0.5 ML INH CONCENTRATE NEB SOLN NEB PRN (22:40)
[2025-05-10] MEDS: **hydrALAZINE HCL** 25 MG TAB PO SCH
[2025-05-10 01:43] VITALS: BP 190/82; TEMP 97.2; O2SAT 97
[2025-05-10 02:25] VITALS: BP 154/59
[2025-05-10 04:27] VITALS: BP 158/68; TEMP 97.3; O2SAT 100
[2025-05-10] MEDS: LEVOTHYROXINE 75 MCG TABLET (0.075 MG) PO SCH (05:41)
[2025-05-10 06:04] LABS: BASO # 0.0 10^3/uL (0.0-0.2); BASO % 0.3 % (0.0-1.0); EOS # 0.2 10^3/uL (0.0-0.5); EOS % 3.3 % (0.0-3.0); LYMPH # 1.6 10^3/uL (1.5-5.0); LYMPH % 27.6 % (24.0-44.0); MONO # 0.7 10^3/uL (0.0-0.8); MONO % 11.1 % (2.0-8.0); NEUTROPHILS # 3.4 10^3/uL (1.5-8.5); NEUTROPHILS % 57.4 % (36.0-66.0); PLATELET COUNT, AUTOMATED 188 10^3/uL (150-450)
[2025-05-10 06:14] LABS: CALCIUM LEVEL 8.7 MG/DL (8.3-10.6); CARBON DIOXIDE LEVEL 29.0 MMOL/L (20-31); CHLORIDE LEVEL 102.0 MMOL/L (98-107); CREATININE FOR GFR 0.9 MG/DL (0.55-1.30); GLOMERULAR FILTRATION RATE 66.3 (>39); POTASSIUM SERUM 4.1 MMOL/L (3.5-5.1); SODIUM LEVEL 142.0 MMOL/L (136-145)
[2025-05-10] MEDS: VALSARTAN 80MG TAB PO SCH (09:00)
[2025-05-10] MEDS: ASPIRIN 81 MG CHEWABLE TABLET PO SCH (09:23)
[2025-05-10] MEDS: SUCRALFATE 1 GM TAB PO SCH (09:26)
[2025-05-10] MEDS: TOPIRAMATE 100 MG TAB PO SCH (09:26)
[2025-05-10] MEDS: DOCUSATE SODIUM 100 MG CAPSULE PO SCH (09:26)
[2025-05-10] MEDS: ERYTHROMYCIN OPHTH OINT OU SCH (09:26)
[2025-05-10] MEDS: PANTOPRAZOLE 20 MG TAB PO SCH (09:26)
[2025-05-10] MEDS: FUROSEMIDE 20 MG TAB PO SCH (09:26)
[2025-05-10] MEDS ORDERED: VALS1TAB66 PO (10:22)
[2025-05-10 10:42] LABS: MAGNESIUM LEVEL 2.0 MG/DL (1.8-2.4)
[2025-05-10 12:00] VITALS: BP 130/55; TEMP 97.9; O2SAT 98
[2025-05-10 12:03] VITALS: BP 130/55
[2025-05-10] MEDS ORDERED: ALPRAZolam 0.25 MG TAB PO SCH (21:00)
[2025-05-10] MEDS ORDERED: MONTELUKAST 10 MG TAB PO SCH (21:00)
[2025-05-10] MEDS ORDERED: SERTRALINE 100 MG TAB PO SCH (21:00)
[2025-05-10] MEDS ORDERED: CLORAZEPATE 3.75 MG TAB PO SCH (21:00)
[2025-05-10] MEDS ORDERED: ATORVASTATIN 20 MG TAB PO SCH (21:00)
== END 2025-05-10 14:17 | disposition home or self-care (01) ==
LOC: M ED 16:09 → M ED INP 16:10 → M MSPAV 05-10 01:26
PROVIDERS: ADMIT Internal Medicine Nephrology; ATTEND Internal Medicine Nephrology
DX: R00.1 Bradycardia, unspecified (principal); I73.89 Other specified peripheral vascular diseases; I87.8 Other specified disorders of veins; F79 Unspecified intellectual disabilities; I25.10 Atherosclerotic heart disease of native coronary artery without angina pectoris; I25.2 Old myocardial infarction; Z95.5 Presence of coronary angioplasty implant and graft; R53.83 Other fatigue; I11.0 Hypertensive heart disease with heart failure; E78.5 Hyperlipidemia, unspecified; R60.0 Localized edema; J45.909 Unspecified asthma, uncomplicated; G40.909 Epilepsy, unspecified, not intractable, without status epilepticus; K21.9 Gastro-esophageal reflux disease without esophagitis; K44.9 Diaphragmatic hernia without obstruction or gangrene; E03.9 Hypothyroidism, unspecified; F41.9 Anxiety disorder, unspecified; F32.A Depression, unspecified; Z74.09 Other reduced mobility; I50.30 Unspecified diastolic (congestive) heart failure; Z79.899 Other long term (current) drug therapy; Z79.82 Long term (current) use of aspirin; Z79.890 Hormone replacement therapy
CPT/HCPCS: 36415; 71045; 80048; 80076; 82550; 82553; 83690; 83735; 84439; 84443; 84484; 85025; 85610; 85730; 93005; 93041; 93246; 93925; 94760; 99285; G0378

== ENCOUNTER → 2025-05-10 | Outpatient (CLI) | payer MEDICARE, MEDICAID ==
[~2025-05-10] MED LIST changes: +ATOR40TA75 PO; +CARB10DR2 OU; +CARB15DR33 OU; +ELIQ5TAB PO; +FERR325T3 PO; +FURO20TA2 PO; +METO1TAB87 PO; +MULT-40 PO; +SYNT75TA PO; +VALS1TAB66 PO; +VALS1TAB67 PO
== END ==
LOC: M EKG 14:37
PROVIDERS: ATTEND Internal Medicine Nephrology
DX: R00.1 Bradycardia, unspecified (principal)

== ENCOUNTER → 2025-05-17 | Outpatient (CLI) | payer MEDICARE, MEDICAID ==
[~2025-05-17] MED LIST changes: -ELIQ5TAB PO; -FERR325T3 PO; -METO1TAB87 PO
[2025-05-17 10:53] LABS: CALCIUM LEVEL 8.5 MG/DL (8.3-10.6); CARBON DIOXIDE LEVEL 30.0 MMOL/L (20-31); CHLORIDE LEVEL 100.0 MMOL/L (98-107); CREATININE FOR GFR 0.83 MG/DL (0.55-1.30); GLOMERULAR FILTRATION RATE 73.0 (>39); POTASSIUM SERUM 4.3 MMOL/L (3.5-5.1); SODIUM LEVEL 142.0 MMOL/L (136-145)
== END ==
LOC: M PLALAB 09:07
PROVIDERS: ATTEND Nurse Practitioner
DX: I25.5 Ischemic cardiomyopathy (principal)

== ENCOUNTER 2025-05-18 21:36 | Emergency (ER) | payer MEDICARE, MEDICAID ==
[~2025-05-18] VITALS: Ht 157.5 cm; Wt 75.0 kg
[2025-05-18 23:46] LABS: INR 1.0
[2025-05-18 23:56] LABS: CALCIUM LEVEL 8.3 MG/DL (8.3-10.6); CARBON DIOXIDE LEVEL 27.0 MMOL/L (20-31); CHLORIDE LEVEL 100.0 MMOL/L (98-107); CK-MB VALUE MASS 7.6 NG/ML (<3.6); CREATININE FOR GFR 0.79 MG/DL (0.55-1.30); GLOMERULAR FILTRATION RATE 77.5 (>39); MAGNESIUM LEVEL 1.9 MG/DL (1.8-2.4); POTASSIUM SERUM 4.1 MMOL/L (3.5-5.1); SODIUM LEVEL 137.0 MMOL/L (136-145)
[2025-05-19 00:05] LABS: CPK CREATINE PHOSPHOKINASE 65.0 U/L (34-145); MB/CK RELATIVE INDEX 11.69 (< OR =4)
[2025-05-19 01:10] LABS: BASO # 0.0 10^3/uL (0.0-0.2); BASO % 0.4 % (0.0-1.0); EOS # 0.1 10^3/uL (0.0-0.5); EOS % 2.7 % (0.0-3.0); LYMPH # 1.5 10^3/uL (1.5-5.0); LYMPH % 30.9 % (24.0-44.0); MONO # 0.6 10^3/uL (0.0-0.8); MONO % 12.6 % (2.0-8.0); NEUTROPHILS # 2.5 10^3/uL (1.5-8.5); NEUTROPHILS % 52.8 % (36.0-66.0); PLATELET COUNT, AUTOMATED 149 10^3/uL (150-450)
[2025-05-19] MEDS: NS 500 ML IV ONE (02:45)
[2025-05-19 04:46] VITALS: BP 116/57
[2025-05-19 05:00] VITALS: TEMP 96.8; O2SAT 93
== END 2025-05-19 05:18 | disposition home or self-care (01) ==
LOC: M ED 21:36 → EDBD 21:36 → M ED 05-19 05:18
DX: R55 Syncope and collapse (principal); I25.10 Atherosclerotic heart disease of native coronary artery without angina pectoris; I50.9 Heart failure, unspecified; I25.2 Old myocardial infarction; I10 Essential (primary) hypertension; F32.A Depression, unspecified; F41.9 Anxiety disorder, unspecified; H40.9 Unspecified glaucoma; K21.9 Gastro-esophageal reflux disease without esophagitis; E78.5 Hyperlipidemia, unspecified; Z98.1 Arthrodesis status; M47.812 Spondylosis without myelopathy or radiculopathy, cervical region; Z79.899 Other long term (current) drug therapy

== ENCOUNTER 2025-05-21 13:59 | Inpatient (IN) | payer MEDICARE, MEDICAID ==
[~2025-05-21] VITALS: Ht 154.9 cm; Wt 72.0 kg
[2025-05-21 15:13] LABS: BASO # 0.0 10^3/uL (0.0-0.2); BASO % 0.6 % (0.0-1.0); EOS # 0.0 10^3/uL (0.0-0.5); EOS % 1.1 % (0.0-3.0); LYMPH # 1.0 10^3/uL (1.5-5.0); LYMPH % 27.2 % (24.0-44.0); MONO # 0.4 10^3/uL (0.0-0.8); MONO % 10.6 % (2.0-8.0); NEUTROPHILS # 2.1 10^3/uL (1.5-8.5); NEUTROPHILS % 60.2 % (36.0-66.0); PLATELET COUNT, AUTOMATED 145 10^3/uL (150-450)
[2025-05-21 15:40] LABS: ALT/SGPT 22 U/L (7.0-40); AST/SGOT 24 U/L (<34); CALCIUM LEVEL 8.1 MG/DL (8.3-10.6); CARBON DIOXIDE LEVEL 32 MMOL/L (20-31); CHLORIDE LEVEL 104 MMOL/L (98-107); CK-MB VALUE MASS 10.6 NG/ML (<3.6); CPK CREATINE PHOSPHOKINASE 59 U/L (34-145); CREATININE FOR GFR 0.81 MG/DL (0.55-1.30); GLOMERULAR FILTRATION RATE 75.2 (>39); MB/CK RELATIVE INDEX 17.96 (< OR =4); POTASSIUM SERUM 3.9 MMOL/L (3.5-5.1); SODIUM LEVEL 140 MMOL/L (136-145)
[2025-05-21 15:42] LABS: FREE T4 1.08 NG/DL (0.89-1.76)
[2025-05-21 16:07] LABS: KETONE, URINE AUTO RFX NEGATIVE (NEGATIVE); LEUKOCYTE ESTERASE UR AUTO RFX NEGATIVE (NEGATIVE); MUCUS, URINE RFX SMALL (NEGATIVE); NITRITE, URINE AUTO RFX NEGATIVE (NEGATIVE); RBC, URINE AUTO RFX 2 /HPF (0-3); SQUAM EPITHELIAL CELL UR AURFX 0 /HPF (0-6); WBC, URINE AUTO RFX 2 /HPF (0-3)
[2025-05-21 16:40] LABS: CK-MB VALUE MASS 9.7 NG/ML (<3.6)
[2025-05-21 16:44] LABS: CPK CREATINE PHOSPHOKINASE 78.0 U/L (34-145); MB/CK RELATIVE INDEX 12.43 (< OR =4)
[2025-05-21] MEDS ORDERED: VALS1TAB66 PO (17:29)
[2025-05-21] MEDS ORDERED: HOME MED LIST COMPLETE! XX SCH (17:35)
[2025-05-21] MEDS: NS (Normal Saline) 0.9% 1,000 ML IV ONE (18:13)
[2025-05-21] MEDS: PIPERACILLIN/TAZOBACTAM SOD 4.5 GM in DEXTROSE 5% (D5W) ADV/MINI-BAG 50 ML IV ONE (18:13)
[2025-05-21] MEDS ORDERED: SODIUM CHLORIDE 0.9% 1000 ML IV SCH (18:40)
[2025-05-21] MEDS: NS (Normal Saline) 0.9% 1,000 ML IV SCH (19:26)
[2025-05-21 19:34] LABS: ABG BASE EXCESS -1.6 (-2.0-2.0); ABG HCO3 23.9 MMOL/L (22.0-26.0); ABG O2 SATURATION 98.8 % (95.0-99.0); ABG PARTIAL PRESSURE CO2 43.9 mmHg (35.0-45.0); ABG PARTIAL PRESSURE O2 151.0 mmHg (75.0-100.0); ABG STANDARD HCO3 23.1 MMOL/L. (22.0-26.0); ABG TOTAL CO2 25.3 MMOL/L (23.0-31.0); ABG pH (ARTERIAL) 7.354 UNITS (7.350-7.450)
[2025-05-21 20:24] VITALS: BP 161/67; TEMP 98.6; O2SAT 98
[2025-05-21 21:00] VITALS: TEMP 97.9; O2SAT 100
[2025-05-21 22:00] VITALS: BP 123/70; TEMP 98.2; O2SAT 100
[2025-05-21 23:00] VITALS: TEMP 98.8; O2SAT 99
[2025-05-21 23:43] VITALS: BP 98/45; TEMP 99.3; O2SAT 99
[2025-05-22] VITALS (13 sets, daily range): BP systolic 95–174; BP diastolic 46–90; TEMP 98.2–99.7; O2SAT 99–100
[2025-05-22] MEDS: PIPERACILLIN/TAZOBACTAM SOD 4.5 GM in DEXTROSE 5% (D5W) ADV/MINI-BAG 50 ML IV SCH (01:18)
[2025-05-22 05:00] LABS: PLATELET COUNT, AUTOMATED 137 10^3/uL (150-450)
[2025-05-22 05:23] LABS: ALT/SGPT 20.0 U/L (7.0-40); AST/SGOT 25.0 U/L (<34); CALCIUM LEVEL 7.8 MG/DL (8.3-10.6); CARBON DIOXIDE LEVEL 26.0 MMOL/L (20-31); CHLORIDE LEVEL 110.0 MMOL/L (98-107); CREATININE FOR GFR 0.98 MG/DL (0.55-1.30); GLOMERULAR FILTRATION RATE 59.8 (>39); MAGNESIUM LEVEL 1.9 MG/DL (1.8-2.4); POTASSIUM SERUM 4.1 MMOL/L (3.5-5.1); SODIUM LEVEL 144.0 MMOL/L (136-145)
[2025-05-22] MEDS ORDERED: D10W/0.45% SODIUM CHLORIDE 1,000 ML IV SCH (05:30)
[2025-05-22] MEDS: D5W/0.45% SODIUM CHLORIDE 1,000 ML IV SCH (06:35)
[2025-05-22 09:25] LABS: C REACTIVE PROTEIN QUANTITATIV 0.81 MG/DL (<1.0)
[2025-05-23] VITALS (25 sets, daily range): BP systolic 155–188; BP diastolic 68–88; TEMP 99–100.2; O2SAT 74–100
[2025-05-23 04:56] LABS: PLATELET COUNT, AUTOMATED 136 10^3/uL (150-450)
[2025-05-23 05:29] LABS: ALT/SGPT 25.0 U/L (7.0-40); AST/SGOT 35.0 U/L (<34); CALCIUM LEVEL 8.1 MG/DL (8.3-10.6); CARBON DIOXIDE LEVEL 26.0 MMOL/L (20-31); CHLORIDE LEVEL 109.0 MMOL/L (98-107); CREATININE FOR GFR 1.01 MG/DL (0.55-1.30); GLOMERULAR FILTRATION RATE 57.7 (>39); MAGNESIUM LEVEL 2.0 MG/DL (1.8-2.4); POTASSIUM SERUM 4.1 MMOL/L (3.5-5.1); SODIUM LEVEL 146.0 MMOL/L (136-145)
[2025-05-23] MEDS: ENOXAPARIN 40 MG/0.4 ML SYRINGE (J1650 PER 10MG) SC SCH (08:20)
[2025-05-23] MEDS: amLODIPine 5 MG TAB PO ONE (13:26)
[2025-05-23] MEDS ORDERED: IPRATROPIUM 0.5 MG/ALBUTEROL 2.5 MG INH SOL UD 3 ML INH PRN (15:40)
[2025-05-23] MEDS ORDERED: ALPRAZolam 0.25 MG TAB PO PRN ×2 (15:40→20:00)
[2025-05-23] MEDS: VALSARTAN 80MG TAB PO SCH (16:45)
[2025-05-23] MEDS: SUCRALFATE 1 GM TAB PO SCH (17:12)
[2025-05-23] MEDS ORDERED: ALBUTEROL SULFATE 2.5 MG/0.5 ML INH CONCENTRATE NEB SOLN NEB PRN (17:45)
[2025-05-23] MEDS ORDERED: ALPRAZolam 0.25 MG TAB PO SCH (21:00)
[2025-05-23] MEDS ORDERED: VALSARTAN 80MG TAB PO SCH (21:00)
[2025-05-23] MEDS: PANTOPRAZOLE 20 MG TAB PO SCH (21:57)
[2025-05-23] MEDS: SERTRALINE 100 MG TAB PO SCH (21:57)
[2025-05-23] MEDS: ATORVASTATIN 20 MG TAB PO SCH (21:57)
[2025-05-23] MEDS: MONTELUKAST 10 MG TAB PO SCH (21:57)
[2025-05-23] MEDS: TOPIRAMATE 100 MG TAB PO SCH (21:57)
[2025-05-23] MEDS: CLORAZEPATE 3.75 MG TAB PO SCH (21:57)
[2025-05-23] MEDS: LATANOPROST 0.005% OPHTH SOLN 2.5 ML OU SCH (22:22)
[2025-05-24] VITALS (47 sets, daily range): BP systolic 137–216; BP diastolic 70–97; TEMP 97.2–99.7; O2SAT 86–99
[2025-05-24 05:18] LABS: PLATELET COUNT, AUTOMATED 148 10^3/uL (150-450)
[2025-05-24 05:39] LABS: ALT/SGPT 25.0 U/L (7.0-40); AST/SGOT 37.0 U/L (<34); CALCIUM LEVEL 8.9 MG/DL (8.3-10.6); CARBON DIOXIDE LEVEL 26.0 MMOL/L (20-31); CHLORIDE LEVEL 107.0 MMOL/L (98-107); CREATININE FOR GFR 0.92 MG/DL (0.55-1.30); GLOMERULAR FILTRATION RATE 64.5 (>39); MAGNESIUM LEVEL 2.1 MG/DL (1.8-2.4); POTASSIUM SERUM 3.8 MMOL/L (3.5-5.1); SODIUM LEVEL 146.0 MMOL/L (136-145)
[2025-05-24] MEDS: LEVOTHYROXINE 75 MCG TABLET (0.075 MG) PO SCH (06:29)
[2025-05-24] MEDS ORDERED: VALSARTAN 80MG TAB PO SCH (09:00)
[2025-05-24] MEDS: ASPIRIN 81 MG CHEWABLE TABLET PO SCH (09:02)
[2025-05-24] MEDS: VALSARTAN 80MG TAB PO SCH (09:02)
[2025-05-24] MEDS: FUROSEMIDE 20 MG TAB PO SCH (09:03)
[2025-05-24] MEDS: METOPROLOL TART 12.5 MG PER 1/2 TAB PO SCH (11:21)
[2025-05-25] VITALS (46 sets, daily range): BP systolic 118–182; BP diastolic 58–82; TEMP 97–97.5; O2SAT 86–97
[2025-05-25 05:39] LABS: PLATELET COUNT, AUTOMATED 141 10^3/uL (150-450)
[2025-05-25 06:07] LABS: ALT/SGPT 20.0 U/L (7.0-40); AST/SGOT 27.0 U/L (<34); CALCIUM LEVEL 8.5 MG/DL (8.3-10.6); CARBON DIOXIDE LEVEL 27.0 MMOL/L (20-31); CHLORIDE LEVEL 107.0 MMOL/L (98-107); CREATININE FOR GFR 0.97 MG/DL (0.55-1.30); GLOMERULAR FILTRATION RATE 60.6 (>39); MAGNESIUM LEVEL 1.9 MG/DL (1.8-2.4); POTASSIUM SERUM 3.3 MMOL/L (3.5-5.1); SODIUM LEVEL 146.0 MMOL/L (136-145)
[2025-05-25] MEDS: METOPROLOL 5 MG/5 ML VIAL IV STA (16:34)
[2025-05-25] MEDS: METOPROLOL TART 12.5 MG PER 1/2 TAB PO SCH (16:34)
[2025-05-25] MEDS ORDERED: POTASSIUM CHLORIDE 10% LIQ 20MEQ/15ML UDC PO ONE (17:15)
[2025-05-25] MEDS ORDERED: ISOVUE-370 76% 100 ML VIAL As Ordered ONE (17:33)
[2025-05-25] MEDS: POTASSIUM CHLORIDE 10% LIQ 20MEQ/15ML UDC PO ONE (18:03)
[2025-05-26] VITALS (16 sets, daily range): BP systolic 117–149; BP diastolic 55–65; TEMP 97.1–99.6; O2SAT 92–98
[2025-05-26 05:34] LABS: PLATELET COUNT, AUTOMATED 149 10^3/uL (150-450)
[2025-05-26 05:56] LABS: ALT/SGPT 18.0 U/L (7.0-40); AST/SGOT 24.0 U/L (<34); CALCIUM LEVEL 8.2 MG/DL (8.3-10.6); CARBON DIOXIDE LEVEL 26.0 MMOL/L (20-31); CHLORIDE LEVEL 106.0 MMOL/L (98-107); CREATININE FOR GFR 0.96 MG/DL (0.55-1.30); GLOMERULAR FILTRATION RATE 61.3 (>39); MAGNESIUM LEVEL 1.9 MG/DL (1.8-2.4); POTASSIUM SERUM 3.5 MMOL/L (3.5-5.1); SODIUM LEVEL 146.0 MMOL/L (136-145)
[2025-05-26] MEDS: APIXABAN 5 MG TAB PO SCH (15:06)
[2025-05-27] VITALS (10 sets, daily range): BP systolic 122–168; BP diastolic 59–88; TEMP 97.5–98.2; O2SAT 95–100
[2025-05-27 05:58] LABS: PLATELET COUNT, AUTOMATED 143 10^3/uL (150-450)
[2025-05-27 06:23] LABS: ALT/SGPT 16.0 U/L (7.0-40); AST/SGOT 25.0 U/L (<34); CALCIUM LEVEL 8.4 MG/DL (8.3-10.6); CARBON DIOXIDE LEVEL 28.0 MMOL/L (20-31); CHLORIDE LEVEL 105.0 MMOL/L (98-107); CREATININE FOR GFR 0.92 MG/DL (0.55-1.30); GLOMERULAR FILTRATION RATE 64.5 (>39); MAGNESIUM LEVEL 2.0 MG/DL (1.8-2.4); POTASSIUM SERUM 3.4 MMOL/L (3.5-5.1); SODIUM LEVEL 145.0 MMOL/L (136-145)
[2025-05-27] MEDS: METOPROLOL TART 12.5 MG PER 1/2 TAB PO SCH ×2 (08:36→22:00)
[2025-05-27] MEDS: POTASSIUM CHLORIDE 10% LIQ 20MEQ/15ML UDC PO ONE (10:39)
[2025-05-27 15:35] LABS: IRON (FE) 39.0 UG/DL (50-170); PERCENT SATURATION 14.1 % (13.2-45.0)
[2025-05-28] VITALS (13 sets, daily range): BP systolic 107–119; BP diastolic 53–59; TEMP 96.7–97.7; O2SAT 89–99
[2025-05-28 06:07] LABS: PLATELET COUNT, AUTOMATED 151 10^3/uL (150-450)
[2025-05-28 06:32] LABS: ALT/SGPT 13.0 U/L (7.0-40); AST/SGOT 23.0 U/L (<34); CALCIUM LEVEL 8.3 MG/DL (8.3-10.6); CARBON DIOXIDE LEVEL 28.0 MMOL/L (20-31); CHLORIDE LEVEL 106.0 MMOL/L (98-107); CREATININE FOR GFR 0.92 MG/DL (0.55-1.30); GLOMERULAR FILTRATION RATE 64.5 (>39); MAGNESIUM LEVEL 2.0 MG/DL (1.8-2.4); POTASSIUM SERUM 3.5 MMOL/L (3.5-5.1); SODIUM LEVEL 144.0 MMOL/L (136-145)
[2025-05-28] MEDS ORDERED: METO1TAB87 PO (07:05)
[2025-05-28] MEDS ORDERED: ELIQ5TAB PO (07:05)
[2025-05-28] MEDS ORDERED: FERR325T3 PO (07:06)
== END 2025-05-28 14:45 | disposition home or self-care (01) | DRG 948 ==
LOC: M ED 13:59 → EDBD 13:59 → M ED INP 18:37 → M PCU 20:17
PROVIDERS: ADMIT Student in an Organized Health Care Education/Training Program; ATTEND Internal Medicine
DX: R68.0 Hypothermia, not associated with low environmental temperature (principal); R65.10 Systemic inflammatory response syndrome (SIRS) of non-infectious origin without acute organ dysfunction; I24.89 Other forms of acute ischemic heart disease; D61.818 Other pancytopenia; R41.82 Altered mental status, unspecified; J45.909 Unspecified asthma, uncomplicated; E03.9 Hypothyroidism, unspecified; I11.0 Hypertensive heart disease with heart failure; G40.909 Epilepsy, unspecified, not intractable, without status epilepticus; I73.9 Peripheral vascular disease, unspecified; F79 Unspecified intellectual disabilities; E78.5 Hyperlipidemia, unspecified; M81.0 Age-related osteoporosis without current pathological fracture; I95.9 Hypotension, unspecified; I44.0 Atrioventricular block, first degree; K22.70 Barrett's esophagus without dysplasia; Z99.3 Dependence on wheelchair; K21.9 Gastro-esophageal reflux disease without esophagitis; E87.6 Hypokalemia; I48.0 Paroxysmal atrial fibrillation; D50.9 Iron deficiency anemia, unspecified; D72.819 Decreased white blood cell count, unspecified; F32.A Depression, unspecified; F41.9 Anxiety disorder, unspecified; R09.02 Hypoxemia; Z79.82 Long term (current) use of aspirin; Z79.890 Hormone replacement therapy; Z79.899 Other long term (current) drug therapy

== ENCOUNTER → 2025-06-06 | Outpatient (CLI) | payer MEDICARE, MEDICAID ==
[~2025-06-06] MED LIST changes: +ELIQ5TAB PO; +FERR325T3 PO; +METO1TAB87 PO
[2025-06-06 15:34] LABS: FREE T4 1.01 NG/DL (0.89-1.76)
== END ==
LOC: M PLALAB 12:35
PROVIDERS: ATTEND Physician Assistant
DX: E03.8 Other specified hypothyroidism (principal)

== ENCOUNTER 2025-07-17 07:22 | Inpatient (IN) | payer MEDICARE, MEDICAID ==
[~2025-07-17] VITALS: Ht 172.7 cm; Wt 75.1 kg
[~2025-07-17 07:22] MED LIST changes: +CARB-19 PO; -CARB1TAB20 PO; -ERYT5OIN25 OU
[2025-07-17 08:06] LABS: VENOUS BASE EXCESS 0.3 (-2.0-2.0); VENOUS HCO3 27.5 MMOL/L (23.0-27.0); VENOUS O2 SATURATION 74.9 % (60.0-80.0); VENOUS PARTIAL PRESSURE CO2 58.2 mmHg (38.0-50.0); VENOUS PARTIAL PRESSURE O2 45.0 mmHg (30.0-50.0); VENOUS PH 7.293 UNITS (7.330-7.430); VENOUS STANDARD HCO3 24.4 MMOL/L; VENOUS TOTAL CO2 29.3 MMOL/L (24.0-28.0)
[2025-07-17 08:12] LABS: BASO # 0.0 10^3/uL (0.0-0.2); BASO % 0.3 % (0.0-1.0); EOS # 0.1 10^3/uL (0.0-0.5); EOS % 0.7 % (0.0-3.0); LYMPH # 0.9 10^3/uL (1.5-5.0); LYMPH % 9.8 % (24.0-44.0); MONO # 0.6 10^3/uL (0.0-0.8); MONO % 6.5 % (2.0-8.0); NEUTROPHILS # 7.1 10^3/uL (1.5-8.5); NEUTROPHILS % 81.2 % (36.0-66.0); PLATELET COUNT, AUTOMATED 234 10^3/uL (150-450)
[2025-07-17] MEDS: cefTRIAXone SOD 2 GM in DEXTROSE 5% (D5W) ADV/MINI-BAG 50 ML IV ONE (08:35)
[2025-07-17] MEDS: NS 0.9% IV ONE (08:36)
[2025-07-17] MEDS: [UNRECOGNIZED DRUG - OTHER] IV ONE (08:36)
[2025-07-17 08:47] LABS: ALT/SGPT 20 U/L (7.0-40); AST/SGOT 21 U/L (<34); CALCIUM LEVEL 7.6 MG/DL (8.3-10.6); CARBON DIOXIDE LEVEL 28 MMOL/L (20-31); CHLORIDE LEVEL 98 MMOL/L (98-107); CREATININE FOR GFR 1.06 MG/DL (0.55-1.30); GLOMERULAR FILTRATION RATE 54.4 (>39); POTASSIUM SERUM 4.4 MMOL/L (3.5-5.1); SODIUM LEVEL 132 MMOL/L (136-145)
[2025-07-17] MEDS ORDERED: ISOVUE-370 76% 100 ML VIAL As Ordered ONE (10:09)
[2025-07-17 11:00] VITALS: O2SAT 96
[2025-07-17] MEDS: IPRATROPIUM 0.5 MG/ALBUTEROL 2.5 MG INH SOL UD 3 ML NEB PRN (11:18)
[2025-07-17 11:37] LABS: ABG BASE EXCESS -2.8 (-2.0-2.0); ABG HCO3 24.1 MMOL/L (22.0-26.0); ABG O2 SATURATION 94.9 % (95.0-99.0); ABG PARTIAL PRESSURE CO2 51.8 mmHg (35.0-45.0); ABG PARTIAL PRESSURE O2 85.9 mmHg (75.0-100.0); ABG STANDARD HCO3 22.1 MMOL/L. (22.0-26.0); ABG TOTAL CO2 25.7 MMOL/L (23.0-31.0); ABG pH (ARTERIAL) 7.285 UNITS (7.350-7.450)
[2025-07-17] MEDS: SODIUM CHLORIDE HYPERTONIC 3% 4ML NEB SOL INH SCH (14:00)
[2025-07-17] MEDS ORDERED: FERR325T3 PO (15:05)
[2025-07-17] MEDS ORDERED: ELIQ5TAB PO (15:05)
[2025-07-17] MEDS ORDERED: HOME MED LIST COMPLETE! XX SCH (15:10)
[2025-07-17 15:46] LABS: IRON (FE) 30 UG/DL (50-170); PERCENT SATURATION 12.5 % (13.2-45.0)
[2025-07-17 15:49] LABS: VITAMIN B12 LEVEL 1024 PG/ML (211-911)
[2025-07-17] MEDS: SUCRALFATE 1 GM TAB PO SCH (16:00)
[2025-07-17] MEDS: AMPICILLIN SOD/SULBACTAM SOD 3 GM in DEXTROSE 5% (D5W) MINI-BAG PLU 100 ML IV SCH (18:24)
[2025-07-17] MEDS ORDERED: LABETALOL 100 MG/20 ML VIAL IV PRN (18:45)
[2025-07-17 19:30] LABS: ABG BASE EXCESS -3.6 (-2.0-2.0); ABG HCO3 22.2 MMOL/L (22.0-26.0); ABG O2 SATURATION 97.4 % (95.0-99.0); ABG PARTIAL PRESSURE CO2 42.9 mmHg (35.0-45.0); ABG PARTIAL PRESSURE O2 105.9 mmHg (75.0-100.0); ABG STANDARD HCO3 21.5 MMOL/L. (22.0-26.0); ABG TOTAL CO2 23.5 MMOL/L (23.0-31.0); ABG pH (ARTERIAL) 7.331 UNITS (7.350-7.450)
[2025-07-17] MEDS: ALBUTEROL SULFATE 2.5 MG/0.5 ML INH CONCENTRATE NEB SOLN NEB SCH (20:41)
[2025-07-17] MEDS: LATANOPROST 0.005% OPHTH SOLN 2.5 ML OU SCH (21:00)
[2025-07-17] MEDS: TOPIRAMATE 100 MG TAB PO SCH (21:12)
[2025-07-17] MEDS: SERTRALINE 100 MG TAB PO SCH (21:16)
[2025-07-17] MEDS: DOCUSATE SODIUM 100 MG CAPSULE PO SCH (21:16)
[2025-07-17] MEDS: ATORVASTATIN 20 MG TAB PO SCH (21:16)
[2025-07-17] MEDS: APIXABAN 5 MG TAB PO SCH (21:16)
[2025-07-17] MEDS: ALPRAZolam 0.25 MG TAB PO SCH (21:17)
[2025-07-17] MEDS: DOXYCYCLINE HYCLATE 100 MG TABLET PO SCH (21:17)
[2025-07-17] MEDS: guaiFENesin ER TABLET 600 MG TAB PO SCH (21:17)
[2025-07-17] MEDS: MONTELUKAST 10 MG TAB PO SCH (21:18)
[2025-07-17] MEDS: VALSARTAN 80MG TAB PO SCH (21:18)
[2025-07-17] MEDS: FERROUS SULFATE 325 MG TAB PO SCH (21:19)
[2025-07-17 22:56] VITALS: BP 178/84; TEMP 99.6; O2SAT 98
[2025-07-17 23:49] VITALS: BP 143/64
[2025-07-18] MEDS: PANTOPRAZOLE 20 MG TAB PO SCH (00:20)
[2025-07-18] MEDS: CLORAZEPATE 3.75 MG TAB PO SCH (00:20)
[2025-07-18 04:01] VITALS: BP 146/65; TEMP 99.3; O2SAT 97
[2025-07-18 05:27] LABS: PLATELET COUNT, AUTOMATED 265 10^3/uL (150-450)
[2025-07-18 05:55] LABS: CALCIUM LEVEL 7.4 MG/DL (8.3-10.6); CARBON DIOXIDE LEVEL 26.0 MMOL/L (20-31); CHLORIDE LEVEL 105.0 MMOL/L (98-107); CREATININE FOR GFR 0.85 MG/DL (0.55-1.30); GLOMERULAR FILTRATION RATE 71.0 (>39); POTASSIUM SERUM 4.5 MMOL/L (3.5-5.1); SODIUM LEVEL 135.0 MMOL/L (136-145)
[2025-07-18] MEDS: LEVOTHYROXINE 75 MCG TABLET (0.075 MG) PO SCH (06:17)
[2025-07-18 08:36] VITALS: TEMP 98.6; O2SAT 99
[2025-07-18] MEDS: ASPIRIN 81 MG CHEWABLE TABLET PO SCH (08:51)
[2025-07-18] MEDS: FUROSEMIDE 20 MG TAB PO SCH (08:51)
[2025-07-18] MEDS: VALSARTAN 80MG TAB PO SCH (08:52)
[2025-07-18] MEDS: ACETAMINOPHEN 325 MG TAB PO PRN (08:53)
[2025-07-18] MEDS: ALBUTEROL SULFATE 2.5 MG/0.5 ML INH CONCENTRATE NEB SOLN NEB SCH (11:28)
[2025-07-18] MEDS: SODIUM CHLORIDE HYPERTONIC 3% 4ML NEB SOL INH SCH (11:29)
[2025-07-18 12:05] VITALS: BP 121/64; TEMP 98.6; O2SAT 100
[2025-07-18] MEDS: FUROSEMIDE 20 MG/2 ML VIAL IV ONE (13:01)
[2025-07-18 16:49] VITALS: BP 127/60; O2SAT 100
[2025-07-18 20:40] VITALS: BP 117/58; TEMP 98.6; O2SAT 92
[2025-07-18 23:52] VITALS: BP 100/51; TEMP 98.3; O2SAT 63
[2025-07-19 04:36] VITALS: BP 119/50; TEMP 97.6; O2SAT 98
[2025-07-19 05:11] LABS: BASO # 0.0 10^3/uL (0.0-0.2); BASO % 0.1 % (0.0-1.0); EOS # 0.0 10^3/uL (0.0-0.5); EOS % 0.0 % (0.0-3.0); LYMPH # 1.2 10^3/uL (1.5-5.0); LYMPH % 13.4 % (24.0-44.0); MONO # 0.5 10^3/uL (0.0-0.8); MONO % 5.3 % (2.0-8.0); NEUTROPHILS # 7.1 10^3/uL (1.5-8.5); NEUTROPHILS % 79.9 % (36.0-66.0); PLATELET COUNT, AUTOMATED 250 10^3/uL (150-450)
[2025-07-19 05:41] LABS: CALCIUM LEVEL 7.8 MG/DL (8.3-10.6); CARBON DIOXIDE LEVEL 28.0 MMOL/L (20-31); CHLORIDE LEVEL 105.0 MMOL/L (98-107); CREATININE FOR GFR 0.92 MG/DL (0.55-1.30); GLOMERULAR FILTRATION RATE 64.5 (>39); MAGNESIUM LEVEL 2.2 MG/DL (1.8-2.4); POTASSIUM SERUM 4.3 MMOL/L (3.5-5.1); SODIUM LEVEL 139.0 MMOL/L (136-145)
[2025-07-19 07:46] VITALS: BP 163/77; TEMP 97.2; O2SAT 99
[2025-07-19] MEDS: MIRALAX *UNIT DOSE* 17 GM PACKET PO SCH (10:13)
[2025-07-19 11:58] VITALS: BP 139/60; TEMP 97.5; O2SAT 97
[2025-07-19 15:56] VITALS: BP 163/70; TEMP 97.2; O2SAT 96
[2025-07-19 20:49] VITALS: BP 118/58; TEMP 97.7; O2SAT 98
[2025-07-19 20:56] VITALS: BP 118/58
[2025-07-20 00:54] VITALS: BP 133/60; TEMP 97; O2SAT 95
[2025-07-20 04:00] VITALS: BP 118/56; TEMP 97.7; O2SAT 97
[2025-07-20 05:59] LABS: PLATELET COUNT, AUTOMATED 232 10^3/uL (150-450)
[2025-07-20 06:27] LABS: CALCIUM LEVEL 7.9 MG/DL (8.3-10.6); CARBON DIOXIDE LEVEL 29.0 MMOL/L (20-31); CHLORIDE LEVEL 104.0 MMOL/L (98-107); CREATININE FOR GFR 0.93 MG/DL (0.55-1.30); GLOMERULAR FILTRATION RATE 63.7 (>39); POTASSIUM SERUM 4.2 MMOL/L (3.5-5.1); SODIUM LEVEL 139.0 MMOL/L (136-145)
[2025-07-20 08:18] VITALS: BP 154/77; TEMP 97.9
[2025-07-20 10:00] VITALS: BP 160/68
[2025-07-20] MEDS ORDERED: AMOX875T2 PO (11:17)
[2025-07-20] MEDS ORDERED: MUCI1TAB16 PO (11:17)
[2025-07-20] MEDS ORDERED: PRED10TA2 PO (11:17)
[2025-07-20] MEDS ORDERED: DOXY-440 PO (11:17)
[2025-07-20 12:25] VITALS: BP 138/74; TEMP 97.8; O2SAT 92
[2025-07-20 13:00] VITALS: O2SAT 93
== END 2025-07-20 15:50 | disposition home or self-care (01) | DRG 202 ==
LOC: M ED 09:23 → M ED INP 15:02 → M PCU 22:40
PROVIDERS: ADMIT Internal Medicine; ATTEND Internal Medicine
DX: J45.901 Unspecified asthma with (acute) exacerbation (principal); J15.9 Unspecified bacterial pneumonia; I21.A1 Myocardial infarction type 2; I50.32 Chronic diastolic (congestive) heart failure; E87.29 Other acidosis; J98.11 Atelectasis; I48.0 Paroxysmal atrial fibrillation; I11.0 Hypertensive heart disease with heart failure; F79 Unspecified intellectual disabilities; F32.A Depression, unspecified; E78.5 Hyperlipidemia, unspecified; K21.9 Gastro-esophageal reflux disease without esophagitis; I73.9 Peripheral vascular disease, unspecified; E66.811 Obesity, class 1; E03.9 Hypothyroidism, unspecified; Z99.3 Dependence on wheelchair; D50.9 Iron deficiency anemia, unspecified; G47.33 Obstructive sleep apnea (adult) (pediatric); B34.8 Other viral infections of unspecified site; F41.9 Anxiety disorder, unspecified; I25.10 Atherosclerotic heart disease of native coronary artery without angina pectoris; I25.2 Old myocardial infarction; Z79.899 Other long term (current) drug therapy; Z79.82 Long term (current) use of aspirin; Z79.890 Hormone replacement therapy

== ENCOUNTER → 2025-08-08 | Outpatient (CLI) | payer MEDICARE, MEDICAID ==
[~2025-08-08] MED LIST changes: +AMOX875T2 PO; +DOXY-440 PO; +MUCI1TAB16 PO
[2025-08-08 11:02] LABS: BASO # 0.0 10^3/uL (0.0-0.2); BASO % 0.7 % (0.0-1.0); EOS # 0.1 10^3/uL (0.0-0.5); EOS % 2.6 % (0.0-3.0); LYMPH # 1.4 10^3/uL (1.5-5.0); LYMPH % 26.3 % (24.0-44.0); MONO # 0.4 10^3/uL (0.0-0.8); MONO % 8.0 % (2.0-8.0); NEUTROPHILS # 3.3 10^3/uL (1.5-8.5); NEUTROPHILS % 61.7 % (36.0-66.0); PLATELET COUNT, AUTOMATED 187 10^3/uL (150-450)
[2025-08-08 11:30] LABS: ALT/SGPT 20.0 U/L (7.0-40); AST/SGOT 21.0 U/L (<34); CALCIUM LEVEL 8.6 MG/DL (8.3-10.6); CARBON DIOXIDE LEVEL 29.0 MMOL/L (20-31); CHLORIDE LEVEL 101.0 MMOL/L (98-107); CHOLESTEROL LEVEL 158.0 MG/DL (<200); CHOLESTEROL RISK RATIO 2.28 (<5); CREATININE FOR GFR 1.06 MG/DL (0.55-1.30); GLOMERULAR FILTRATION RATE 54.1 (>39); LDL CHOLESTEROL 70.4 MG/DL (<100); NON-HDL-C 89.0 MG/DL; POTASSIUM SERUM 5.3 MMOL/L (3.5-5.1); SODIUM LEVEL 136.0 MMOL/L (136-145); TRIGLYCERIDES LEVEL 93.0 MG/DL (<150)
[2025-08-10 09:38] LABS: LDL DIRECT 64 mg/dL (<100)
== END ==
LOC: M PLALAB 09:03
PROVIDERS: ATTEND Nurse Practitioner
DX: I48.0 Paroxysmal atrial fibrillation (principal); I25.10 Atherosclerotic heart disease of native coronary artery without angina pectoris; E78.5 Hyperlipidemia, unspecified

== ENCOUNTER 2025-08-16 06:54 | Observation (INO) | payer MEDICARE, MEDICAID ==
[2025-08-16 07:52] LABS: BASO # 0.0 10^3/uL (0.0-0.2); BASO % 0.4 % (0.0-1.0); EOS # 0.1 10^3/uL (0.0-0.5); EOS % 1.6 % (0.0-3.0); LYMPH # 1.0 10^3/uL (1.5-5.0); LYMPH % 18.1 % (24.0-44.0); MONO # 0.4 10^3/uL (0.0-0.8); MONO % 7.4 % (2.0-8.0); NEUTROPHILS # 4.0 10^3/uL (1.5-8.5); NEUTROPHILS % 71.6 % (36.0-66.0); PLATELET COUNT, AUTOMATED 198 10^3/uL (150-450)
[2025-08-16 08:10] LABS: INR 1.2
[2025-08-16] MEDS: IPRATROPIUM 0.5 MG/ALBUTEROL 2.5 MG INH SOL UD 3 ML NEB PRN (08:12)
[2025-08-16 08:18] LABS: ALT/SGPT 19 U/L (7.0-40); AST/SGOT 21 U/L (<34); CALCIUM LEVEL 8.4 MG/DL (8.3-10.6); CARBON DIOXIDE LEVEL 28 MMOL/L (20-31); CHLORIDE LEVEL 98 MMOL/L (98-107); CK-MB VALUE MASS 5.0 NG/ML (<3.6); CPK CREATINE PHOSPHOKINASE 40 U/L (34-145); CREATININE FOR GFR 0.98 MG/DL (0.55-1.30); GLOMERULAR FILTRATION RATE 59.5 (>39); MB/CK RELATIVE INDEX 12.50 (< OR =4); POTASSIUM SERUM 3.8 MMOL/L (3.5-5.1); SODIUM LEVEL 134 MMOL/L (136-145)
[2025-08-16 09:15] LABS: VENOUS BASE EXCESS -1.5 (-2.0-2.0); VENOUS HCO3 25.7 MMOL/L (23.0-27.0); VENOUS O2 SATURATION 99.2 % (60.0-80.0); VENOUS PARTIAL PRESSURE CO2 54.9 mmHg (38.0-50.0); VENOUS PARTIAL PRESSURE O2 182.0 mmHg (30.0-50.0); VENOUS PH 7.289 UNITS (7.330-7.430); VENOUS STANDARD HCO3 23.2 MMOL/L; VENOUS TOTAL CO2 27.4 MMOL/L (24.0-28.0)
[2025-08-16 09:44] LABS: CK-MB VALUE MASS 4.2 NG/ML (<3.6)
[2025-08-16 09:45] LABS: CPK CREATINE PHOSPHOKINASE 42.0 U/L (34-145); MB/CK RELATIVE INDEX 10.0 (< OR =4)
[2025-08-16] MEDS: BENZONATATE 100 MG CAPSULE PO ONE (09:45)
[2025-08-16] MEDS ORDERED: ISOVUE-370 76% 100 ML VIAL As Ordered ONE (09:47)
[2025-08-16 09:58] LABS: SP GRAVITY,URINE MANUAL REFLEX 1.020 (1.002-1.035)
[2025-08-16 09:59] LABS: NITRITE, URINE MANUAL RFX NEGATIVE (NEGATIVE); PROTEIN, URINE MANUAL REFLEX 1+ mg/dL (NEGATIVE)
[2025-08-16 10:00] LABS: KETONE, URINE MANUAL REFLEX NEGATIVE (NEGATIVE); UROBILINOGEN, UA MANUAL REFLEX NORMAL (NORMAL)
[2025-08-16 10:04] LABS: HYALINE CAST, URINE RFX NONE SEEN /lpf (0-1); MICROSCOPIC EXAM RFX UNSPUN; RBC, URINE MAN REFLEX 0-1 /hpf (0-3); SQUAMOUS EPITHELIAL URINE RFX LARGE AMOUNT /hpf (SMALL AMT); TRANSITIONAL EPI, URINE RFX SMALL AMOUNT /hpf
[2025-08-16 10:11] LABS: ABG BASE EXCESS -2.4 (-2.0-2.0); ABG HCO3 24.3 MMOL/L (22.0-26.0); ABG O2 SATURATION 97.4 % (95.0-99.0); ABG PARTIAL PRESSURE CO2 50.5 mmHg (35.0-45.0); ABG PARTIAL PRESSURE O2 102.8 mmHg (75.0-100.0); ABG STANDARD HCO3 22.4 MMOL/L. (22.0-26.0); ABG TOTAL CO2 25.9 MMOL/L (23.0-31.0); ABG pH (ARTERIAL) 7.301 UNITS (7.350-7.450)
[2025-08-16] MEDS ORDERED: IPRATROPIUM 0.5 MG/ALBUTEROL 2.5 MG INH SOL UD 3 ML NEB PRN (12:15)
[2025-08-16] MEDS: IPRATROPIUM 0.5 MG/ALBUTEROL 2.5 MG INH SOL UD 3 ML NEB SCH (13:13)
[2025-08-16] MEDS: SODIUM CHLORIDE HYPERTONIC 3% 4ML NEB SOL INH SCH (13:13)
[2025-08-16] MEDS ORDERED: KETO2CR TOP (13:14)
[2025-08-16] MEDS ORDERED: HOME MED LIST COMPLETE! XX SCH (13:20)
[2025-08-16] MEDS: cefTRIAXone SOD 1 GM in DEXTROSE 5% (D5W) ADV/MINI-BAG 50 ML IV SCH (13:34)
[2025-08-16] MEDS: MAG SULF 1GM/100ML (MAG RUN) 1 GM in IV 1 EA IV SCH (14:23)
[2025-08-16 15:43] VITALS: BP 116/53; TEMP 97.7; O2SAT 100
[2025-08-16] MEDS ORDERED: ACETAMINOPHEN 325 MG TAB PO PRN (15:55)
[2025-08-16] MEDS: PANTOPRAZOLE 20 MG TAB PO SCH (18:58)
[2025-08-16] MEDS: MIRALAX *UNIT DOSE* 17 GM PACKET PO SCH (18:59)
[2025-08-16] MEDS: SUCRALFATE 1 GM TAB PO SCH (18:59)
[2025-08-16] MEDS: TOPIRAMATE 100 MG TAB PO ONE (18:59)
[2025-08-16 20:08] VITALS: BP 111/55; TEMP 97.4; O2SAT 99
[2025-08-16] MEDS: CLORAZEPATE 3.75 MG TAB PO SCH (20:20)
[2025-08-16] MEDS: KETOCONAZOLE 2% CREAM TOP SCH (20:21)
[2025-08-16] MEDS: ATORVASTATIN 20 MG TAB PO SCH (20:21)
[2025-08-16] MEDS: LATANOPROST 0.005% OPHTH SOLN 2.5 ML OU SCH (20:23)
[2025-08-16] MEDS: DOCUSATE SODIUM 100 MG CAPSULE PO SCH (20:23)
[2025-08-16] MEDS: MONTELUKAST 10 MG TAB PO SCH (20:24)
[2025-08-16] MEDS: ERYTHROMYCIN OPHTH OINT OD SCH (20:24)
[2025-08-16] MEDS: APIXABAN 5 MG TAB PO SCH (20:24)
[2025-08-16] MEDS: SERTRALINE 100 MG TAB PO SCH (20:24)
[2025-08-16] MEDS: ALPRAZolam 0.25 MG TAB PO SCH (20:25)
[2025-08-16] MEDS: VALSARTAN 80MG TAB PO SCH (20:25)
[2025-08-16] MEDS: FERROUS SULFATE 325 MG TAB PO SCH (20:25)
[2025-08-16] MEDS: TOPIRAMATE 100 MG TAB PO SCH (20:27)
[2025-08-17] VITALS (7 sets, daily range): BP systolic 116–129; BP diastolic 55–61; TEMP 97.5–98.4; O2SAT 90–99
[2025-08-17 06:12] LABS: PLATELET COUNT, AUTOMATED 187 10^3/uL (150-450)
[2025-08-17] MEDS: LEVOTHYROXINE 75 MCG TABLET (0.075 MG) PO SCH (06:13)
[2025-08-17 06:45] LABS: ALT/SGPT 17.0 U/L (7.0-40); AST/SGOT 17.0 U/L (<34); CALCIUM LEVEL 8.1 MG/DL (8.3-10.6); CARBON DIOXIDE LEVEL 27.0 MMOL/L (20-31); CHLORIDE LEVEL 100.0 MMOL/L (98-107); CREATININE FOR GFR 0.81 MG/DL (0.55-1.30); GLOMERULAR FILTRATION RATE 74.7 (>39); POTASSIUM SERUM 4.4 MMOL/L (3.5-5.1); SODIUM LEVEL 134.0 MMOL/L (136-145)
[2025-08-17 08:39] LABS: VENOUS BASE EXCESS 1.0 (-2.0-2.0); VENOUS HCO3 26.4 MMOL/L (23.0-27.0); VENOUS O2 SATURATION 96.0 % (60.0-80.0); VENOUS PARTIAL PRESSURE CO2 45.2 mmHg (38.0-50.0); VENOUS PARTIAL PRESSURE O2 79.1 mmHg (30.0-50.0); VENOUS PH 7.384 UNITS (7.330-7.430); VENOUS STANDARD HCO3 25.4 MMOL/L; VENOUS TOTAL CO2 27.8 MMOL/L (24.0-28.0)
[2025-08-17] MEDS ORDERED: PRED10TA2 PO (08:52)
[2025-08-17] MEDS ORDERED: CEFD1CAP9 PO (08:52)
[2025-08-17] MEDS: VALSARTAN 80MG TAB PO SCH (10:17)
[2025-08-17] MEDS: FUROSEMIDE 20 MG TAB PO SCH (10:18)
[2025-08-17] MEDS: ASPIRIN 81 MG CHEWABLE TABLET PO SCH (10:18)
== END 2025-08-17 15:41 | disposition home or self-care (01) ==
LOC: EDBD 06:54 → M ED 06:54 → INTOOBSV 11:57 → M ED INP 11:57 → M PCU 15:32
PROVIDERS: ADMIT Internal Medicine; ATTEND Internal Medicine
DX: J45.901 Unspecified asthma with (acute) exacerbation (principal); I25.10 Atherosclerotic heart disease of native coronary artery without angina pectoris; I50.9 Heart failure, unspecified; Z98.61 Coronary angioplasty status; F79 Unspecified intellectual disabilities; E78.5 Hyperlipidemia, unspecified; G40.909 Epilepsy, unspecified, not intractable, without status epilepticus; I48.0 Paroxysmal atrial fibrillation; Z99.3 Dependence on wheelchair; I73.9 Peripheral vascular disease, unspecified; Z79.01 Long term (current) use of anticoagulants; Z79.82 Long term (current) use of aspirin; Z79.52 Long term (current) use of systemic steroids; Z79.899 Other long term (current) drug therapy
CPT/HCPCS: 36415; 36600; 71045; 71275; 80047; 80048; 80053; 80076; 81000; 81015; 82550; 82553; 82803; 83605; 83880; 84145; 84443; 84484; 85025; 85027; 85610; 87040; 87077; 87088; 87154; 87186; 87486; 87581; 87633; 87798; 92610; 93005; 93041; 94640; 94760; 96361; 96365; 96366; 96375; 96376; 99285; G0378; J0696; J2919; J3475; Q9967

== ENCOUNTER 2025-08-21 12:12 | Emergency (ER) | payer MEDICARE, MEDICAID ==
[~2025-08-21] VITALS: Ht 162.6 cm; Wt 70.0 kg
[~2025-08-21 12:12] MED LIST changes: +CEFD1CAP9 PO; +KETO2CR TOP
[2025-08-21 16:21] VITALS: BP 140/65; TEMP 98.6; O2SAT 99
[2025-08-21] MEDS ORDERED: ERYT5OIN25 OS (16:42)
[2025-08-21] MEDS ORDERED: HOME MED LIST COMPLETE! XX SCH (16:45)
== END 2025-08-21 16:22 | disposition home or self-care (01) ==
LOC: M ED 12:12
DX: R79.9 Abnormal finding of blood chemistry, unspecified (principal); I51.9 Heart disease, unspecified; J44.9 Chronic obstructive pulmonary disease, unspecified; Z86.73 Personal history of transient ischemic attack (TIA), and cerebral infarction without residual deficits; Z86.19 Personal history of other infectious and parasitic diseases; Z95.1 Presence of aortocoronary bypass graft; Z79.01 Long term (current) use of anticoagulants; Z79.82 Long term (current) use of aspirin; Z79.899 Other long term (current) drug therapy

== ENCOUNTER → 2025-09-26 | Outpatient (CLI) | payer MEDICARE, MEDICAID ==
[~2025-09-26] MED LIST changes: +CARB20TA PO; +ERYT5OIN25 OS; +GUAI100L6 PO
[2025-09-26 13:46] LABS: PLATELET COUNT, AUTOMATED 174 10^3/uL (150-450)
[2025-09-26 13:48] LABS: ALT/SGPT 28 U/L (7.0-40); AST/SGOT 29 U/L (<34); CALCIUM LEVEL 8.8 MG/DL (8.3-10.6); CARBON DIOXIDE LEVEL 33 MMOL/L (20-31); CHLORIDE LEVEL 98 MMOL/L (98-107); CHOLESTEROL LEVEL 146 MG/DL (<200); CHOLESTEROL RISK RATIO 2.12 (<5); CREATININE FOR GFR 1.26 MG/DL (0.55-1.30); GLOMERULAR FILTRATION RATE 44.0 (>39); LDL CHOLESTEROL 57.6 MG/DL (<100); NON-HDL-C 77.2 MG/DL; POTASSIUM SERUM 4.9 MMOL/L (3.5-5.1); SODIUM LEVEL 138 MMOL/L (136-145); TRIGLYCERIDES LEVEL 98 MG/DL (<150)
[2025-09-26 13:53] LABS: FREE T4 0.94 NG/DL (0.89-1.76)
== END ==
LOC: M LAB 09:35 → M PLALAB 09:35
PROVIDERS: ATTEND Family Medicine
DX: I50.31 Acute diastolic (congestive) heart failure (principal); E03.8 Other specified hypothyroidism; J06.9 Acute upper respiratory infection, unspecified; E78.5 Hyperlipidemia, unspecified

== ENCOUNTER 2025-10-01 08:39 | Emergency (ER) | payer MEDICARE, MEDICAID ==
[~2025-10-01 08:39] MED LIST changes: -CARB20TA PO; -GUAI100L6 PO
[2025-10-01] MEDS ORDERED: CARB20TA PO (10:28)
[2025-10-01] MEDS ORDERED: carBAMazepine 100 MG *1/2* TABLET PO ONE (11:00)
[2025-10-01] MEDS ORDERED: PILL CUTTER 1 EACH XX PRN (11:10)
[2025-10-01 12:00] VITALS: BP 121/60; TEMP 96.8; O2SAT 94
[2025-10-02 12:16] LABS: CARBAMAZEPINE (TEGRETOL) SO 5.9 mg/L (4.0-12.0)
[2025-10-04 20:08] LABS: TOPIRAMATE LEVEL 12.0 mcg/mL (see note)
== END 2025-10-01 12:30 | disposition home or self-care (01) ==
LOC: M ED 08:39
DX: G40.89 Other seizures (principal); I25.10 Atherosclerotic heart disease of native coronary artery without angina pectoris; Z86.19 Personal history of other infectious and parasitic diseases

== ENCOUNTER 2025-10-04 07:28 | Inpatient (IN) | payer MEDICARE, MEDICAID ==
[2025-10-04] VITALS (8 sets, daily range): BP systolic 136–158; BP diastolic 51–68; TEMP 97–97.8; O2SAT 95–100
[~2025-10-04] VITALS: Ht 167.6 cm; Wt 75.5 kg
[~2025-10-04 07:28] MED LIST changes: +CARB20TA PO
[2025-10-04 07:58] LABS: VENOUS BASE EXCESS 0.8 (-2.0-2.0); VENOUS HCO3 29.3 MMOL/L (23.0-27.0); VENOUS O2 SATURATION 69.9 % (60.0-80.0); VENOUS PARTIAL PRESSURE CO2 66.4 mmHg (38.0-50.0); VENOUS PARTIAL PRESSURE O2 38.8 mmHg (30.0-50.0); VENOUS PH 7.263 UNITS (7.330-7.430); VENOUS STANDARD HCO3 24.6 MMOL/L; VENOUS TOTAL CO2 31.4 MMOL/L (24.0-28.0)
[2025-10-04] MEDS: IPRATROPIUM 0.5 MG/ALBUTEROL 2.5 MG INH SOL UD 3 ML NEB PRN (08:02)
[2025-10-04 08:21] LABS: BASO # 0.0 10^3/uL (0.0-0.2); BASO % 0.1 % (0.0-1.0); EOS # 0.0 10^3/uL (0.0-0.5); EOS % 0.2 % (0.0-3.0); LYMPH # 0.8 10^3/uL (1.5-5.0); LYMPH % 6.2 % (24.0-44.0); MONO # 1.3 10^3/uL (0.0-0.8); MONO % 10.7 % (2.0-8.0); NEUTROPHILS # 10.1 10^3/uL (1.5-8.5); NEUTROPHILS % 82.4 % (36.0-66.0); PLATELET COUNT, AUTOMATED 142 10^3/uL (150-450)
[2025-10-04 08:29] LABS: ABG BASE EXCESS 1.6 (-2.0-2.0); ABG HCO3 29.0 MMOL/L (22.0-26.0); ABG O2 SATURATION 96.1 % (95.0-99.0); ABG PARTIAL PRESSURE CO2 58.7 mmHg (35.0-45.0); ABG PARTIAL PRESSURE O2 89.1 mmHg (75.0-100.0); ABG STANDARD HCO3 25.9 MMOL/L. (22.0-26.0); ABG TOTAL CO2 30.8 MMOL/L (23.0-31.0); ABG pH (ARTERIAL) 7.311 UNITS (7.350-7.450)
[2025-10-04 08:37] LABS: ALT/SGPT 35 U/L (7.0-40); AST/SGOT 30 U/L (<34); CALCIUM LEVEL 8.9 MG/DL (8.3-10.6); CARBON DIOXIDE LEVEL 31 MMOL/L (20-31); CHLORIDE LEVEL 94 MMOL/L (98-107); CREATININE FOR GFR 0.91 MG/DL (0.55-1.30); GLOMERULAR FILTRATION RATE 65.0 (>39); POTASSIUM SERUM 4.3 MMOL/L (3.5-5.1); SODIUM LEVEL 131 MMOL/L (136-145)
[2025-10-04] MEDS: MIRALAX *UNIT DOSE* 17 GM PACKET PO SCH (09:00)
[2025-10-04] MEDS ORDERED: ISOVUE-370 76% 100 ML VIAL As Ordered ONE (09:11)
[2025-10-04] MEDS ORDERED: IPRA0.00 INH (10:13)
[2025-10-04] MEDS ORDERED: GUAI100L6 PO (10:13)
[2025-10-04] MEDS ORDERED: CARB20TA PO (10:13)
[2025-10-04] MEDS ORDERED: HOME MED LIST COMPLETE! XX SCH (10:15)
[2025-10-04] MEDS: NS 0.9% IV STA (10:39)
[2025-10-04] MEDS: [UNRECOGNIZED DRUG - OTHER] IV STA (10:39)
[2025-10-04] MEDS: PIPERACILLIN/TAZOBACTAM SOD 4.5 GM in DEXTROSE 5% (D5W) ADV/MINI-BAG 50 ML IV ONE (10:44)
[2025-10-04] MEDS ORDERED: ALPRAZolam 0.25 MG TAB PO PRN (11:45)
[2025-10-04] MEDS ORDERED: guaiFENesin SYRUP 200 MG/10 ML UDC PO PRN (11:45)
[2025-10-04] MEDS ORDERED: VANCOMYCIN HCL 1,000 MG, VIAL MATE ADAPTER 1 EACH in NS 250 ML IV SCH (11:50)
[2025-10-04] MEDS ORDERED: ALBUTEROL SULFATE 2.5 MG/0.5 ML INH CONCENTRATE NEB SOLN NEB PRN (11:50)
[2025-10-04] MEDS: IPRATROPIUM 0.5 MG/ALBUTEROL 2.5 MG INH SOL UD 3 ML NEB SCH (12:00)
[2025-10-04] MEDS: VANCOMYCIN HCL 1,000 MG, VIAL MATE ADAPTER 1 EACH in NS 250 ML IV ONE (12:06)
[2025-10-04] MEDS: APIXABAN 5 MG TAB PO SCH (12:09)
[2025-10-04] MEDS: POLYVINYL ALCOHOL OPHTH SOLN 15ML (LIQUITEARS) OU SCH (13:00)
[2025-10-04] MEDS: SUCRALFATE 1 GM TAB PO SCH (19:02)
[2025-10-04] MEDS: PIPERACILLIN/TAZOBACTAM SOD 4.5 GM in DEXTROSE 5% (D5W) ADV/MINI-BAG 50 ML IV SCH (19:02)
[2025-10-04] MEDS: ERYTHROMYCIN OPHTH OINT OD SCH (20:33)
[2025-10-04] MEDS: CLORAZEPATE 3.75 MG TAB PO SCH (20:33)
[2025-10-04] MEDS: KETOCONAZOLE 2% CREAM TOP SCH (20:33)
[2025-10-04] MEDS: TOPIRAMATE 100 MG TAB PO SCH (20:33)
[2025-10-04] MEDS: LATANOPROST 0.005% OPHTH SOLN 2.5 ML OU SCH (20:34)
[2025-10-04] MEDS: SERTRALINE 100 MG TAB PO SCH (20:58)
[2025-10-04] MEDS: PANTOPRAZOLE 20 MG TAB PO SCH (20:58)
[2025-10-04] MEDS: DOCUSATE SODIUM 100 MG CAPSULE PO SCH (20:59)
[2025-10-04] MEDS: FERROUS SULFATE 325 MG TAB PO SCH (20:59)
[2025-10-04] MEDS: MONTELUKAST 10 MG TAB PO SCH (20:59)
[2025-10-04] MEDS: VALSARTAN 80MG TAB PO SCH (20:59)
[2025-10-04] MEDS: ATORVASTATIN 20 MG TAB PO SCH (20:59)
[2025-10-05] VITALS (16 sets, daily range): BP systolic 106–131; BP diastolic 51–59; TEMP 97.2–99.1; O2SAT 96–100
[2025-10-05 05:20] LABS: PLATELET COUNT, AUTOMATED 126 10^3/uL (150-450)
[2025-10-05] MEDS: LEVOTHYROXINE 75 MCG TABLET (0.075 MG) PO SCH (05:37)
[2025-10-05 06:27] LABS: CALCIUM LEVEL 8.3 MG/DL (8.3-10.6); CARBON DIOXIDE LEVEL 29.0 MMOL/L (20-31); CHLORIDE LEVEL 103.0 MMOL/L (98-107); CREATININE FOR GFR 0.96 MG/DL (0.55-1.30); GLOMERULAR FILTRATION RATE 60.9 (>39); POTASSIUM SERUM 4.5 MMOL/L (3.5-5.1); SODIUM LEVEL 139.0 MMOL/L (136-145)
[2025-10-05] MEDS: D5W/0.9% SODIUM CHLORIDE 1,000 ML IV SCH (07:50)
[2025-10-05] MEDS ORDERED: FUROSEMIDE 20 MG TAB PO SCH (09:00)
[2025-10-05] MEDS ORDERED: VALSARTAN 80MG TAB PO SCH (09:00)
[2025-10-05] MEDS: PANTOPRAZOLE 40MG VIAL IV SCH (09:23)
[2025-10-06] VITALS (16 sets, daily range): BP systolic 115–148; BP diastolic 55–66; TEMP 97.7–98.4; O2SAT 94–99
[2025-10-06] MEDS: NS 500 ML IV ONE (01:21)
[2025-10-06 04:52] LABS: PLATELET COUNT, AUTOMATED 143 10^3/uL (150-450)
[2025-10-06 05:13] LABS: CALCIUM LEVEL 8.2 MG/DL (8.3-10.6); CARBON DIOXIDE LEVEL 29.0 MMOL/L (20-31); CHLORIDE LEVEL 107.0 MMOL/L (98-107); CREATININE FOR GFR 1.23 MG/DL (0.55-1.30); GLOMERULAR FILTRATION RATE 45.3 (>39); POTASSIUM SERUM 4.2 MMOL/L (3.5-5.1); SODIUM LEVEL 143.0 MMOL/L (136-145)
[2025-10-07 04:54] VITALS: BP 124/70; TEMP 98.4; O2SAT 95
[2025-10-07 07:10] LABS: PLATELET COUNT, AUTOMATED 136 10^3/uL (150-450)
[2025-10-07 07:32] LABS: CALCIUM LEVEL 8.5 MG/DL (8.3-10.6); CARBON DIOXIDE LEVEL 30.0 MMOL/L (20-31); CHLORIDE LEVEL 108.0 MMOL/L (98-107); CREATININE FOR GFR 1.42 MG/DL (0.55-1.30); GLOMERULAR FILTRATION RATE 38.1 (>39); POTASSIUM SERUM 4.6 MMOL/L (3.5-5.1); SODIUM LEVEL 145.0 MMOL/L (136-145)
[2025-10-07 08:00] VITALS: BP 109/55; TEMP 98.1; O2SAT 99
[2025-10-07] MEDS: BISACODYL 10 MG SUPP PR ONE (11:15)
[2025-10-07 12:00] VITALS: BP 101/49; TEMP 98.1; O2SAT 100
[2025-10-07] MEDS: MOM 30 ML SUSPENSION UDC PO ONE (12:08)
[2025-10-07] MEDS: MIRALAX *UNIT DOSE* 17 GM PACKET PO SCH (12:08)
[2025-10-07 15:40] VITALS: BP 114/56; TEMP 98.3; O2SAT 96
[2025-10-07 20:06] VITALS: BP 102/44; TEMP 97.9; O2SAT 97
[2025-10-07 23:51] VITALS: BP 134/58; TEMP 98.3; O2SAT 91
[2025-10-08] VITALS (10 sets, daily range): BP systolic 111–152; BP diastolic 53–67; TEMP 97.6–98.4; O2SAT 84–100
[2025-10-08 06:59] LABS: PLATELET COUNT, AUTOMATED 138 10^3/uL (150-450)
[2025-10-08 07:26] LABS: CALCIUM LEVEL 8.3 MG/DL (8.3-10.6); CARBON DIOXIDE LEVEL 32.0 MMOL/L (20-31); CHLORIDE LEVEL 106.0 MMOL/L (98-107); CREATININE FOR GFR 1.46 MG/DL (0.55-1.30); GLOMERULAR FILTRATION RATE 36.9 (>39); POTASSIUM SERUM 4.6 MMOL/L (3.5-5.1); SODIUM LEVEL 145.0 MMOL/L (136-145)
[2025-10-08] MEDS: ACETAMINOPHEN 325 MG TAB PO PRN (16:45)
[2025-10-09 04:39] VITALS: BP 127/63; TEMP 97.7; O2SAT 92
[2025-10-09 07:12] LABS: PLATELET COUNT, AUTOMATED 141 10^3/uL (150-450)
[2025-10-09 07:42] LABS: CALCIUM LEVEL 8.4 MG/DL (8.3-10.6); CARBON DIOXIDE LEVEL 34.0 MMOL/L (20-31); CHLORIDE LEVEL 107.0 MMOL/L (98-107); CREATININE FOR GFR 1.31 MG/DL (0.55-1.30); GLOMERULAR FILTRATION RATE 42.0 (>39); POTASSIUM SERUM 5.0 MMOL/L (3.5-5.1); SODIUM LEVEL 146.0 MMOL/L (136-145)
[2025-10-09 08:00] VITALS: BP 135/61; TEMP 98.1; O2SAT 67; O2SAT 89
[2025-10-09 12:00] VITALS: BP 110/53; TEMP 97.2; O2SAT 94
[2025-10-09 15:48] VITALS: BP 120/58; TEMP 98.2; O2SAT 92
== END 2025-10-09 17:25 | disposition home or self-care (01) | DRG 202 ==
LOC: M ED 07:28 → M ED INP 11:43 → M PCU 18:26 → M MSPAV 10-06 16:19
PROVIDERS: ADMIT Student in an Organized Health Care Education/Training Program; ATTEND Internal Medicine
DX: J45.901 Unspecified asthma with (acute) exacerbation (principal); J18.9 Pneumonia, unspecified organism; I50.32 Chronic diastolic (congestive) heart failure; J96.11 Chronic respiratory failure with hypoxia; J90 Pleural effusion, not elsewhere classified; I25.10 Atherosclerotic heart disease of native coronary artery without angina pectoris; I25.2 Old myocardial infarction; Z95.5 Presence of coronary angioplasty implant and graft; E78.5 Hyperlipidemia, unspecified; E03.9 Hypothyroidism, unspecified; M41.9 Scoliosis, unspecified; I11.0 Hypertensive heart disease with heart failure; G40.909 Epilepsy, unspecified, not intractable, without status epilepticus; F79 Unspecified intellectual disabilities; Z99.3 Dependence on wheelchair; I48.0 Paroxysmal atrial fibrillation; I73.9 Peripheral vascular disease, unspecified; Z99.81 Dependence on supplemental oxygen; G47.33 Obstructive sleep apnea (adult) (pediatric); F32.A Depression, unspecified; F41.9 Anxiety disorder, unspecified; D50.9 Iron deficiency anemia, unspecified; K21.9 Gastro-esophageal reflux disease without esophagitis; Z79.01 Long term (current) use of anticoagulants; Z79.890 Hormone replacement therapy; Z79.899 Other long term (current) drug therapy